=== PATIENT | male | born 1960 | race Caucasian/White ===

== ENCOUNTER 2020-10-09 12:51 | Inpatient (IN) ==
[2020-10-09] MEDS ORDERED: DEXAMETHASONE SOD INJ 10 MG/ML VIAL IV ONE ×2 (13:18→14:16)
[2020-10-09] MEDS ORDERED: ALBUTEROL HFA 8 GM INHALER INH ONE ×2 (13:18→13:22)
--- NOTE | 2020-10-09 13:35 | Emergency Department Note ---
Impression & Plan Pneumonia due to COVID-19 virus, Hypoxia, Acute kidney injury ED Provider Note CHIEF COMPLAINT: Cough, shortness of breath, low oxygen HISTORY OF PRESENTING ILLNESS: This is a 60-year-old male who presents to the emergency department by private vehicle with complaint of cough, shortness of b reath, and low oxygen. The patient states his symptoms started about 3 days ago that he had a cough and some shortness of breath with activities. He has been feeling very tired and rundown. He reports a dry mouth and also notes some diarrhea for the past few days as well. He reports that he was exposed to a family member who tested positive for COVID-19. He went to an outpatient testing site to get tested for Covid and they found that his oxygen levels were low and sent him to the ER for further evaluation. He denies any chest pain, back pain, or abdominal pain. He rates his pain level 0/10. He denies any fevers or chills, but has had some body aches. REVIEW OF SYSTEMS: A complete 10 point review of systems was reviewed with the patient with pertinent positives and negatives as per history of present illness. All else were negative. PAST MEDICAL HISTORY: Type 2 diabetes, hypertension SOCIAL HISTORY: Lives at home with his , he denies tobacco use ALLERGIES: No known allergies PHYSICAL EXAM: CONSTITUTIONAL: Alert, Pleasant and cooperative. Ill-appearing, but in no acute distress. Dehydrated. HEENT: Normocephalic, atraumatic. PERRL, EOMI. Pharynx normal. Dry mucous membranes. NECK: Supple, full active range of motion without discomfort. No cervical adenopathy. RESPIRATORY: Diminished throughout with bilateral rhonchi and crackles, no wheezing or stridor. Equal expansion bilaterally. No tachypnea or accessory muscle use. CARDIOVASCULAR: Regular rate and rhythm with no murmurs, rubs or gallops. Normal peripheral perfusion, 2+ distal pulses in all 4 extremities. No pitting edema. GASTROINTESTINAL: Soft, nontender, nondistended. No palpable masses or HSM. Bowel sounds present in all quadrants. MUSCULOSKELETAL: Full range of motion of all joints without discomfort. INTEGUMENTARY: No rash or other significant dermatologic conditions noted. NEUROLOGIC: Alert and oriented X 4 with normal affect. No focal neurologic deficits noted. Normal strength and sensation in all 4 extremities. Normal speech. Normal gait observed. ED COURSE AND MEDICAL DECISION MAKING: CC: Patient presenting with complaint of cough, shortness of breath, low oxygen DIFFERENTIAL DIAGNOSIS: Includes, but not limited to COVID-19, influenza, other viral URI, bronchitis, pneumonia, bacteremia/sepsis, pulmonary embolism, acute coronary syndrome, among others. INTERPRETATION OF LABS: No leukocytosis, mild anemia (consistent with baseline), normal platelets, hyperglycemia, no other significant electrolyte abnormalities, significantly elevated BUN and creatinine consistent with CYDNEY, normal liver enzymes. Troponin undetectable. Lactic acid elevated at 2.9, procalcitonin also elevated. VBG PCO2 and PO2 within normal limits. Influenza A/B is negative. SARS-CoV-2 RNA is positive. IMAGING: XR chest 1V portable CLINICAL HISTORY: Dyspnea COMPARISON STUDY: Chest x-ray dated 03/17/2018 FINDINGS: The heart is normal in size. There are moderately extensive bilateral pulmonary airspace opacities consistent with a multifocal pneumonia. Correlation with Covid 19 testing is recommended. There are no pleural effusions. IMPRESSION: 1. Moderately extensive bilateral pulmonary airspace opacities consistent with a multifocal pneumonia. EKG: Shows sinus rhythm with a rate of 70 bpm, occasional PVCs, no ST depression or elevation, PVCs appear to be new when compared to previous EKG from 03/17/2018, otherwise no significant changes by my interpretation. MEDICATION RECONCILIATION: I attest that I have personally reviewed the patient's current medication list. INITIAL VITAL SIGNS REVIEW: I reviewed the patient's initial vital signs and interpret them as follows: T: Afebrile; BP: Hypertensive; HR: Within normal limits; RR: Within normal limits; Pulse Ox: Hypoxic on room air at 76%. MDM SUMMARY: Patient was evaluated at bedside in room B8 under full contact and airborne precautions, history and physical exam performed. The patient is alert and oriented, ill-appearing, but in no acute distress, resting calmly in the stretcher. Patient was initially hypoxic at 76% on room air on arrival, he was initially placed on 5 L nasal cannula, and is still hypoxic with sats ranging 88 to 90%. The patient is complaining of a dry mouth and has not been breathing much through his nose, I did switch him to an oxygen mask, and he had almost immediate improvement of his sats to 95%. No labored breathing or evidence of respiratory distress. Lungs are bronchitic with crackles bilaterally concerning for pneumonia. Cardiac monitoring: An order was placed for continuous cardiac monitoring. The monitor shows a rate of 72 bpm with normal sinus rhythm. EKG was reviewed at bedside as well and notes normal sinus rhythm without acute ischemic changes. Orders were placed at bedside for labs, blood cultures x2, lactate, procalcitonin, VBG, troponin, influenza and COVID-19 testing, urinalysis, chest x-ray to evaluate for shortness of breath and hypoxia. Orders were also placed for albuterol inhaler with spacer and IV dexamethasone. I have a high suspicion for COVID-19 infection, will hold off on antibiotics for now, the patient does not appear to be septic. Patient discussed with Dr. Fiore, who agrees with my assessment, plan, and disposition. Labs and imaging reviewed as above, notable findings of elevated lactate and procalcitonin, acute kidney injury, and positive COVID-19 testing. Chest x-ray reviewed noting moderate extensive bilateral pulmonary airspace opacities consistent with multifocal pneumonia, which I suspect is due to COVID- 19 infection. Patient reassessed multiple times throughout ED stay, he has remained hemodynamically stable and has not had further hypoxia while on the face mask oxygen. Breathing remains nonlabored and no tachypnea. I spoke on the phone with the hospitalist team, they agreed to evaluate the patient for admission. Will defer antibiotics and CT imaging to the inpatient team. The patient was updated on all results and plan for admission, he verbalized understanding and was agreeable to this plan. The patient was stable at time of admission. CRITICAL CARE NOTE: I have personally spent greater than 32 minutes of critical care time in the direct management of this patient. This includes bedside care, interpretation of diagnostic studies, and testing, discussion with consultants, patient, and family members, and other required patient management activities. This 32 minutes is in excess of all separately billable procedures. The chart was completed utilizing [employer] Speech voice recognition software. Grammatical errors, random word insertions, pronoun errors, and incomplete sentences are an occasional consequence of this system due to software limitations, ambient noise, and hardware issues. Any formal questions or concerns about the content, text, or information contained within the body of this dictation should be directly addressed to the nurse practitioner for clarification. Past Med/Surg History Medical History Diabetes mellitus type II, controlled Dyslipidemia Gout HTN (hypertension) Morbid obesity TAD on CPAP Psoriatic arthropathy Surgical History H/O meniscectomy of right knee "1994 Dr. Bernard" H/O wisdom tooth extraction Hx of total knee arthroplasty "R TKA Dr. 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 Beliefs That Will Affect Care: None marital status: Current Living Situation: Spouse current occupational status: employed Other Information That Helps Us Care for You: No Feels Safe at Home: Yes Safety Concerns: Feels Safe At This Time Assistive Devices: BiPap, Cane and Glasses Allergies Allergies Allergy/AdvReac Type Severity Reaction Status Date / Time No Known Allergies Allergy Verified 10/09/20 15:01 Home Meds Home Medications Medication Instructions Recorded Confirmed allopurinol 300 mg PO QAM #0 tab 05/18/16 10/09/20 cinnamon bark [Cinnamon] 500 mg PO QAM #0 05/18/16 10/09/20 cyanocobalamin (vitamin B-12) 1,000 mcg PO QAM #0 tab 05/18/16 10/09/20 [Vitamin B-12] glucosamine sulfate [Glucosamine] 500 mg PO QAM #0 tab 05/18/16 10/09/20 metformin 1,000 mg PO BID #0 tab 05/18/16 10/09/20 omega-3 fatty acids [Fish Oil 1,000 mg PO QAM #0 cap 05/18/16 10/09/20 Concentrate] grape seed extract [Grape Seed] 50 mg PO QAM #0 07/08/16 10/09/20 zinc 50 mg PO QAM #0 07/08/16 10/09/20 calcium carbonate [Calcium 600] 600 mg PO QAM #0 03/17/18 10/09/20 cholecalciferol (vitamin D3) 25 mcg PO QAM 90 Days #90 tab 03/17/18 10/09/20 [Vitamin D3] garlic 2,000 mg PO QAM #0 03/17/18 10/09/20 ketoconazole 1 ea TOPICAL DIRECTED 30 Days 03/17/18 10/09/20 #120 ml acetaminophen [Tylenol Extra 500 mg PO Q8H PRN 10/09/20 10/09/20 Strength] aspirin 81 mg PO QAM 10/09/20 10/09/20 atenolol-chlorthalidone 1 tab PO QAM 10/09/20 10/09/20 atorvastatin 40 mg PO PM 10/09/20 10/09/20 flurbiprofen 100 mg PO QAM 10/09/20 10/09/20 glimepiride 4 mg PO QAM 10/09/20 10/09/20 losartan 100 mg PO QAM 10/09/20 10/09/20 magnesium oxide 400 mg PO QAM 10/09/20 10/09/20 Results & Data (ED) Vital Signs Vital Signs - 24 hr 10/09/20 12:52 10/09/20 13:03 10/09/20 13:15 Temperature 37.1 C Temperature Source Oral Pulse Rate 75 75 67 Pulse Rate from SpO2 Sensor 72 67 Pulse Rhythm Respiratory Rate 22 21 22 Blood Pressure 158/70 H 153/70 H 152/57 H Blood Pressure Mean 99 94 84 Pulse Oximetry 76 L 88 L 91 Oxygen Delivery Method Room Air Oxygen Flow Rate Sepsis Recent Fever Within 48 Hours No Sepsis New/Unexplained Change in Mental Status No Sepsis Action Taken by Nursing No Action Required Oxygen Flow Rate - Titration Pulse Oximetry Post Tiitration 10/09/20 13:19 10/09/20 13:45 10/09/20 14:00 Temperature Temperature Source Pulse Rate 75 69 62 Pulse Rate from SpO2 Sensor 66 62 Pulse Rhythm Regular Respiratory Rate 22 23 24 Blood Pressure 140/71 135/69 Blood Pressure Mean 111 109 Pulse Oximetry 95 93 94 Oxygen Delivery Method Oxymask Oxygen Flow Rate 5 Sepsis Recent Fever Within 48 Hours Sepsis New/Unexplained Change in Mental Status Sepsis Action Taken by Nursing Oxygen Flow Rate - Titration 5 Pulse Oximetry Post Tiitration 95 10/09/20 14:15 10/09/20 14:30 10/09/20 14:45 Temperature Temperature Source Pulse Rate 65 66 65 Pulse Rate from SpO2 Sensor 65 65 65 Pulse Rhythm Respiratory Rate 26 H 31 H 34 H Blood Pressure 139/71 116/58 L 135/62 Blood Pressure Mean 106 73 83 Pulse Oximetry 92 90 90 Oxygen Delivery Method Oxygen Flow Rate Sepsis Recent Fever Within 48 Hours Sepsis New/Unexplained Change in Mental Status Sepsis Action Taken by Nursing Oxygen Flow Rate - Titration Pulse Oximetry Post Tiitration 10/09/20 15:00 10/09/20 15:15 10/09/20 15:30 Temperature Temperature Source Pulse Rate 68 67 65 Pulse Rate from SpO2 Sensor 68 67 64 Pulse Rhythm Respiratory Rate 27 H 24 31 H Blood Pressure 135/58 L 138/61 138/62 Blood Pressure Mean 79 93 96 Pulse Oximetry 90 92 93 Oxygen Delivery Method Oxygen Flow Rate Sepsis Recent Fever Within 48 Hours Sepsis New/Unexplained Change in Mental Status Sepsis Action Taken by Nursing Oxygen Flow Rate - Titration Pulse Oximetry Post Tiitration 10/09/20 15:45 10/09/20 16:00 10/09/20 16:15 Temperature Temperature Source Pulse Rate 61 65 69 Pulse Rate from SpO2 Sensor 62 65 68 Pulse Rhythm Respiratory Rate 25 H 31 H 25 H Blood Pressure 135/57 L 138/60 147/68 H Blood Pressure Mean 83 79 95 Pulse Oximetry 93 93 96 Oxygen Delivery Method Oxygen Flow Rate Sepsis Recent Fever Within 48 Hours Sepsis New/Unexplained Change in Mental Status Sepsis Action Taken by Nursing Oxygen Flow Rate - Titration Pulse Oximetry Post Tiitration 10/09/20 16:45 Temperature Temperature Source Pulse Rate 65 Pulse Rate from SpO2 Sensor 65 Pulse Rhythm Respiratory Rate 25 H Blood Pressure 160/67 H Blood Pressure Mean 110 Pulse Oximetry 90 Oxygen Delivery Method Oxygen Flow Rate Sepsis Recent Fever Within 48 Hours Sepsis New/Unexplained Change in Mental Status Sepsis Action Taken by Nursing Oxygen Flow Rate - Titration Pulse Oximetry Post Tiitration Laboratory Data Result diagrams: 10/09/20 13:50 10/09/20 21:10 Lab Results 10/09/20 10/09/20 10/09/20 Range/Units 13:38 13:38 13:38 WBC (4.8-10.8) K/uL RBC (4.7-6.1) M/uL Hgb (14.0-18.0) g/dL Hct (42-52) % MCV (80-100) fL MCH (25-34) pg MCHC (32-36) g/dL RDW Std Deviation (36.4-46.3) fL RDW Coeff of Amarjit (11.5-14.5) % Plt Count (130-400) K/uL MPV (7.4-10.4) fL Immature Gran % (Auto) % Neut % (Auto) % Lymph % (Auto) % Fergus % (Auto) % Eos % (Auto) % Baso % (Auto) % Neut # (Auto) (1.4-6.5) K/uL Lymph # (Auto) (1.2-3.4) K/uL Fergus # (Auto) (0.11-0.59) K/uL Eos # (Auto) (0-0.5) K/uL Baso # (Auto) (0-0.2) K/uL Immature Gran # (Auto) (0.00-0.02) K/uL PT INR APTT PTT Ratio D-Dimer VBG pH (7.36-7.41) VBG pCO2 (38-50) mmHg VBG pO2 mmHg VBG HCO3 mmol/L VBG O2 Saturation % VBG Base Excess mEq/L Barometric Pressure mm/Hg Sodium (136-145) mmol/L Potassium (3.5-5.1) mmol/L Chloride (98-107) mmol/L Carbon Dioxide (21-32) mmol/L Anion Gap (3-11) BUN (7-18) mg/dl Creatinine (0.6-1.4) mg/dl Est Cr Clr Drug Dosing ml/min Est GFR ( Amer) Est GFR (Non-Af Amer) BUN/Creatinine Ratio (10-20) Glucose (70-99) mg/dl Lactate (0.4-2.0) mmol/L Calcium (8.5-10.1) mg/dl Magnesium (1.8-2.4) mg/dl Total Bilirubin (0.2-1) mg/dl AST (15-37) U/L ALT (12-78) U/L Alkaline Phosphatase (45-117) U/L Troponin I (0-0.045) ng/ml Total Protein (6.4-8.2) gm/dl Albumin (3.4-5.0) gm/dl Globulin (2.5-4.0) gm/dl Albumin/Globulin Ratio (0.9-2) Beta-Hydroxybutyric Acd (0.2-2.81) mg/dl Procalcitonin (0-0.5) ng/ml COVID-19 Eval [facility] Influ A Molecular Assay Negative (Negative) Influ B Molecular Assay Negative (Negative) SARS-CoV-2, RNA, NAAT POSITIVE A* (NEGATIVE) 10/09/20 10/09/20 10/09/20 Range/Units 13:50 13:50 13:50 WBC (4.8-10.8) K/uL RBC (4.7-6.1) M/uL Hgb (14.0-18.0) g/dL Hct (42-52) % MCV (80-100) fL MCH (25-34) pg MCHC (32-36) g/dL RDW Std Deviation (36.4-46.3) fL RDW Coeff of Amarjit (11.5-14.5) % Plt Count (130-400) K/uL MPV (7.4-10.4) fL Immature Gran % (Auto) % Neut % (Auto) % Lymph % (Auto) % Fergus % (Auto) % Eos % (Auto) % Baso % (Auto) % Neut # (Auto) (1.4-6.5) K/uL Lymph # (Auto) (1.2-3.4) K/uL Fergus # (Auto) (0.11-0.59) K/uL Eos # (Auto) (0-0.5) K/uL Baso # (Auto) (0-0.2) K/uL Immature Gran # (Auto) (0.00-0.02) K/uL PT Cancelled INR Cancelled APTT Cancelled PTT Ratio Cancelled D-Dimer Cancelled VBG pH (7.36-7.41) VBG pCO2 (38-50) mmHg VBG pO2 mmHg VBG HCO3 mmol/L VBG O2 Saturation % VBG Base Excess mEq/L Barometric Pressure mm/Hg Sodium 139 (136-145) mmol/L Potassium 3.3 L (3.5-5.1) mmol/L Chloride 101 (98-107) mmol/L Carbon Dioxide 25 (21-32) mmol/L Anion Gap 12.0 H (3-11) BUN 50 H (7-18) mg/dl Creatinine 2.23 H (0.6-1.4) mg/dl Est Cr Clr Drug Dosing 49.5 ml/min Est GFR ( Amer) 35.5 Est GFR (Non-Af Amer) 30.7 BUN/Creatinine Ratio 22.3 H (10-20) Glucose 375 H* (70-99) mg/dl Lactate (0.4-2.0) mmol/L Calcium 9.3 (8.5-10.1) mg/dl Magnesium 1.9 (1.8-2.4) mg/dl Total Bilirubin 0.7 (0.2-1) mg/dl AST 52 H (15-37) U/L ALT 47 (12-78) U/L Alkaline Phosphatase 66 (45-117) U/L Troponin I < 0.015 (0-0.045) ng/ml Total Protein 7.9 (6.4-8.2) gm/dl Albumin 2.4 L (3.4-5.0) gm/dl Globulin 5.5 H (2.5-4.0) gm/dl Albumin/Globulin Ratio 0.4 L (0.9-2) Beta-Hydroxybutyric Acd (0.2-2.81) mg/dl Procalcitonin 1.62 H (0-0.5) ng/ml COVID-19 Eval Order Influ A Molecular Assay (Negative) Influ B Molecular Assay (Negative) SARS-CoV-2, RNA, NAAT (NEGATIVE) 10/09/20 10/09/20 10/09/20 Range/Units 13:50 13:50 13:50 WBC 7.53 (4.8-10.8) K/uL RBC 4.14 L (4.7-6.1) M/uL Hgb 11.8 L (14.0-18.0) g/dL Hct 35.1 L (42-52) % MCV 84.8 (80-100) fL MCH 28.5 (25-34) pg MCHC 33.6 (32-36) g/dL RDW Std Deviation 48.9 H (36.4-46.3) fL RDW Coeff of Amarjit 15.8 H (11.5-14.5) % Plt Count 223 (130-400) K/uL MPV 11.5 H (7.4-10.4) fL Immature Gran % (Auto) 0.4 % Neut % (Auto) 91.0 % Lymph % (Auto) 6.0 % Fergus % (Auto) 2.4 % Eos % (Auto) 0.1 % Baso % (Auto) 0.1 % Neut # (Auto) 6.85 H (1.4-6.5) K/uL Lymph # (Auto) 0.45 L (1.2-3.4) K/uL Fergus # (Auto) 0.18 (0.11-0.59) K/uL Eos # (Auto) 0.01 (0-0.5) K/uL Baso # (Auto) 0.01 (0-0.2) K/uL Immature Gran # (Auto) 0.03 H (0.00-0.02) K/uL PT INR APTT PTT Ratio D-Dimer VBG pH 7.44 H (7.36-7.41) VBG pCO2 40 (38-50) mmHg VBG pO2 56 mmHg VBG HCO3 26 mmol/L VBG O2 Saturation 80.1 % VBG Base Excess 2.1 mEq/L Barometric Pressure 736.3 mm/Hg Sodium (136-145) mmol/L Potassium (3.5-5.1) mmol/L Chloride (98-107) mmol/L Carbon Dioxide (21-32) mmol/L Anion Gap (3-11) BUN (7-18) mg/dl Creatinine (0.6-1.4) mg/dl Est Cr Clr Drug Dosing ml/min Est GFR ( Amer) Est GFR (Non-Af Amer) BUN/Creatinine Ratio (10-20) Glucose (70-99) mg/dl Lactate 2.9 H* (0.4-2.0) mmol/L Calcium (8.5-10.1) mg/dl Magnesium (1.8-2.4) mg/dl Total Bilirubin (0.2-1) mg/dl AST (15-37) U/L ALT (12-78) U/L Alkaline Phosphatase (45-117) U/L Troponin I (0-0.045) ng/ml Total Protein (6.4-8.2) gm/dl Albumin (3.4-5.0) gm/dl Globulin (2.5-4.0) gm/dl Albumin/Globulin Ratio (0.9-2) Beta-Hydroxybutyric Acd (0.2-2.81) mg/dl Procalcitonin (0-0.5) ng/ml COVID-19 Eval Order Influ A Molecular Assay (Negative) Influ B Molecular Assay (Negative) SARS-CoV-2, RNA, NAAT (NEGATIVE) 10/09/20 10/09/20 Range/Units 16:25 16:25 WBC (4.8-10.8) K/uL RBC (4.7-6.1) M/uL Hgb (14.0-18.0) g/dL Hct (42-52) % MCV (80-100) fL MCH (25-34) pg MCHC (32-36) g/dL RDW Std Deviation (36.4-46.3) fL RDW Coeff of Amarjit (11.5-14.5) % Plt Count (130-400) K/uL MPV (7.4-10.4) fL Immature Gran % (Auto) % Neut % (Auto) % Lymph % (Auto) % Fergus % (Auto) % Eos % (Auto) % Baso % (Auto) % Neut # (Auto) (1.4-6.5) K/uL Lymph # (Auto) (1.2-3.4) K/uL Fergus # (Auto) (0.11-0.59) K/uL Eos # (Auto) (0-0.5) K/uL Baso # (Auto) (0-0.2) K/uL Immature Gran # (Auto) (0.00-0.02) K/uL PT 12.4 H INR 1.2 H APTT 40.5 H PTT Ratio 1.5 D-Dimer 1210 H* VBG pH (7.36-7.41) VBG pCO2 (38-50) mmHg VBG pO2 mmHg VBG HCO3 mmol/L VBG O2 Saturation % VBG Base Excess mEq/L Barometric Pressure mm/Hg Sodium (136-145) mmol/L Potassium (3.5-5.1) mmol/L Chloride (98-107) mmol/L Carbon Dioxide (21-32) mmol/L Anion Gap (3-11) BUN (7-18) mg/dl Creatinine (0.6-1.4) mg/dl Est Cr Clr Drug Dosing ml/min Est GFR ( Amer) Est GFR (Non-Af Amer) BUN/Creatinine Ratio (10-20) Glucose (70-99) mg/dl Lactate 2.2 H* (0.4-2.0) mmol/L Calcium (8.5-10.1) mg/dl Magnesium (1.8-2.4) mg/dl Total Bilirubin (0.2-1) mg/dl AST (15-37) U/L ALT (12-78) U/L Alkaline Phosphatase (45-117) U/L Troponin I (0-0.045) ng/ml Total Protein (6.4-8.2) gm/dl Albumin (3.4-5.0) gm/dl Globulin (2.5-4.0) gm/dl Albumin/Globulin Ratio (0.9-2) Beta-Hydroxybutyric Acd (0.2-2.81) mg/dl Procalcitonin (0-0.5) ng/ml COVID-19 Eval Order Influ A Molecular Assay (Negative) Influ B Molecular Assay (Negative) SARS-CoV-2, RNA, NAAT (NEGATIVE) Administered Medications Enoxaparin Sodium (Enoxaparin 80 Mg/0.8 Ml Syr) 70 mg SQ BID@0800,2000 [facility] Stop: 11/08/20 21:59 Last Admin: 10/09/20 21:51 Dose: 70 mg Documented by: [id number] Sodium Chloride (Nss 1000ml) 1,000 mls @ 125 mls/hr IV .Q8H [facility] Stop: 11/08/20 16:14 Last Admin: 10/09/20 21:50 Dose: 125 mls/hr Documented by: [id number] Ceftriaxone Sodium 2,000 mg/ (Dextrose) 70 mls @ 100 mls/hr IV Q24H [facility]; Protocol Stop: 10/16/20 20:59 Last Infusion: 10/09/20 22:41 Dose: 0 mls/hr Documented by: [id number] Admin: 10/09/20 21:50 Dose: 100 mls/hr Documented by: [id number] Insulin Aspart (Insulin Aspart 100 Units/Ml 3 Ml Pen) 0 units SC ACHS [facility] Stop: 11/08/20 20:59 Last Admin: 10/09/20 22:25 Dose: 25 units Documented by: [id number] Cosigned by: [id number] Discontinued Medications Albuterol (Albuterol Hfa 8 Gm Inhaler) Confirm Administered Dose 60 puffs INH .STK-MED ONE Stop: 10/09/20 13:23 Last Admin: 10/09/20 13:41 Dose: Not Given Documented by: [id number] Albuterol (Albuterol Hfa 8 Gm Inhaler) 10 puffs INH NOW ONE Stop: 10/09/20 13:19 Last Admin: 10/09/20 13:41 Dose: 10 puffs Documented by: [id number] Dexamethasone (Dexamethasone Sod Inj 10 Mg/Ml Vial) 6 mg IV NOW ONE Stop: 10/09/20 14:17 Last Admin: 10/09/20 14:17 Dose: 6 mg Documented by: [id number] Sodium Chloride (Nss 1000ml) 1,000 mls @ 999 mls/hr IV .Q1H1M ONE Stop: 10/09/20 15:17 Last Infusion: 10/09/20 21:15 Dose: 0 mls/hr Documented by: [id number] Admin: 10/09/20 14:18 Dose: 999 mls/hr Documented by: [id number] Insulin Human Regular 10 units (/ Syringe) 10 mls @ 5 mls/min IV ONE ONE Stop: 10/09/20 22:01 Last Admin: 10/09/20 22:28 Dose: 5 mls/min Documented by: [id number] Cosigned by: [id number] Insulin Glargine (Insulin Glargine Solostar 100 Units/Ml 3 Ml Pen) 50 units SC NOW ONE Stop: 10/09/20 21:01 Last Admin: 10/09/20 22:25 Dose: 50 units Documented by: [id number] Cosigned by: [id number] Potassium Chloride (Potassium Chloride Crtab 20 Meq Tabcr) 40 meq PO NOW STA Stop: 10/09/20 20:58 Last Admin: 10/09/20 22:02 Dose: 40 meq Documented by: [id number] Discharge Plan Visit Data Chief Complaint: Illness Stated Complaint: LOW OXYGEN LEVELS ED Provider: Walter Fiore ED Midlevel Provider: Cassidy Trujillo Discharge Problem: Pneumonia due to COVID-19 virus, Hypoxia, Acute kidney injury Patient Disposition: Admitted As Inpatient Discharge Instructions Interventions: ED Discharge Assessment Last Done: 10/09/20 19:22
[2020-10-09] MEDS ORDERED: SODIUM CHLORIDE 0.9% 1000ML 1,000 ML IV ONE ×2 (13:52→14:17)
--- NOTE | 2020-10-09 14:02 | XRay Report ---
XR chest 1V portable CLINICAL HISTORY: Dyspnea COMPARISON STUDY: Chest x-ray dated 03/17/2018 FINDINGS: The heart is normal in size. There are moderately extensive bilateral pulmonary airspace op acities consistent with a multifocal pneumonia. Correlation with Covid 19 testing is recommended. The re are no pleural effusions.[ IMPRESSION: 1. Moderately extensive bilateral pulmonary airspace opacities consistent with a multifocal pneumonia . ACT 112: Negative or not required by law. Electronically signed by: Ferdinand Sigala M.D. 10/09/2020 2:00 PM
[2020-10-09 14:03] LABS: Base Excess VBG 2.1 mEq/L; Oxygen Saturation VBG 80.1 %; pH VBG 7.44 (7.36-7.41)
[2020-10-09 14:04] LABS: Basophils # (auto) 0.01 K/uL (0-0.2); Basophils % (auto) 0.1 %; Eosinophils # (auto) 0.01 K/uL (0-0.5); Eosinophils % (auto) 0.1 %; Hematocrit (blood only) 35.1 % (42-52); Hemoglobin 11.8 g/dL (14.0-18.0); Immature Granulocytes # (auto) 0.03 K/uL (0.00-0.02); Immature Granulocytes % (auto) 0.4 %; Lymphocytes # (auto) 0.45 K/uL (1.2-3.4); Mean Corpuscular Hemoglobin 28.5 pg (25-34); Mean Corpuscular Hgb Conc 33.6 g/dL (32-36); Mean Corpuscular Volume 84.8 fL (80-100); Mean Platelet Volume 11.5 fL (7.4-10.4); Monocytes # (auto) 0.18 K/uL (0.11-0.59); Monocytes % (auto) 2.4 %; Neutrophils # (auto) 6.85 K/uL (1.4-6.5); Platelet Count 223 K/uL (130-400); RDW Coefficient of Variation 15.8 % (11.5-14.5); RDW Standard Deviation 48.9 fL (36.4-46.3); Red Blood Count 4.14 M/uL (4.7-6.1); White Blood Count 7.53 K/uL (4.8-10.8)
[2020-10-09 14:43] LABS: Influenza A virus by PCR Negative (Negative); Influenza B virus by PCR Negative (Negative)
[2020-10-09 14:54] LABS: Alanine Aminotransferase 47 U/L (12-78); Albumin Globulin Ratio 0.4 (0.9-2); Albumin Level 2.4 gm/dl (3.4-5.0); Alkaline Phosphatase 66 U/L (45-117); Aspartate Aminotransferase 52 U/L (15-37); BUN Creatinine Ratio 22.3 (10-20); Bilirubin,Total 0.7 mg/dl (0.2-1); Blood Urea Nitrogen 50 mg/dl (7-18); Calcium 9.3 mg/dl (8.5-10.1); Carbon Dioxide 25 mmol/L (21-32); Chloride 101 mmol/L (98-107); Creatinine Clr Calc Pharmacy 49.5 ml/min; Est GFR (African American) 35.5; Est GFR (Non-African American) 30.7; Globulin 5.5 gm/dl (2.5-4.0); Glucose 375 mg/dl (70-99); Magnesium 1.9 mg/dl (1.8-2.4); Potassium 3.3 mmol/L (3.5-5.1); Sodium 139 mmol/L (136-145); Total Protein 7.9 gm/dl (6.4-8.2); Troponin I < 0.015 ng/ml (0-0.045)
[2020-10-09 16:45] LABS: INR 1.2 (0.9-1.1); Partial Thromboplastin Ratio 1.5; Partial Thromboplastin Time 40.5 Seconds (21.0-31.0); Prothrombin Time 12.4 Seconds (9.0-12.0)
[2020-10-09 16:46] LABS: D Dimer 1210 ug/L FEU (0-500)
--- NOTE | 2020-10-09 17:13 | Electrocardiogram Report ---
Test Reason : Blood Pressure : / mmHG Vent. Rate : 070 BPM Atrial Rate : 070 BPM P-R Int : 152 ms QRS Dur : 106 ms QT Int : 428 ms P-R-T Axes : 033 -10 006 degrees QTc Int : 462 ms Sinus rhythm with PACs, some conducted aberrantly Minimal voltage criteria for LVH, may be normal variant Borderline ECG Confirmed by Ran Anderson ([id number]) on 10/09/2020 5:13:07 PM Referred By: REFERRED SELF Confirmed By:Jean Pierre Anderson
--- NOTE | 2020-10-09 17:44 | Ultrasound Report ---
ULTRASOUND BILATERAL LOWER EXTREMITY VENOUS CLINICAL HISTORY: Dyspnea. Hypoxia. COMPARISON STUDY: No priors. TECHNIQUE: Real-time, grayscale, and color Doppler sonography of the deep veins of the right and left lower extremity was performed from the inguinal crease to the calf. Compression and augmentation wer e utilized. FINDINGS: There is no sonographic evidence of deep venous thrombosis identified in the right or left lower extremity. The common femoral, superficial femoral, and popliteal veins are patent and normally compressible bilaterally. The greater saphenous vein and the profunda femoris vein at the junction w ith the common femoral vein are clear in both legs. The visualized calf veins are patent bilaterally. IMPRESSION: There is no sonographic evidence of deep venous thrombosis identified in the right or lef t lower extremity. ACT 112: Negative or not required by law. Electronically signed by: Nj Perez M.D. 10/09/2020 5:42 PM
--- NOTE | 2020-10-09 19:56 | History & Physical Report ---
Date of Service October 09, 2020 Assessment & Plan (1) Pneumonia due to COVID-19 virus: Known exposure of the weekend. Noted to be hypoxic when presented for outpatient testing today so referred to ED. - Continue oxygen therapy titrated to effect - Procalcitonin elevated so will add antibiotic coverage with Rocephin and doxycycline - Dexamethasone started in the ED - will continue 6 mg IV daily for up to 10 days - Lovenox for DVT prophylaxis - checking D-dimer and LE duplex to rule out potential DVT/PE. Unable to get CT chest at present due to CYDNEY. - Not currently a candidate for remdesevir due to CYDNEY - will continue to monitor - May consider convalescent plasma pending clinical response to current therapies - Lactate elevated in ED at 2.9. Repeat after 1 L of IVF was 2.2. Continue IVF and repeat later this evening. (2) Hypoxia: Oxygen therapy as discussed above (3) Acute kidney injury: Suspect in part related to dehydration from lack of oral intake - received 1 L IVF bolus in ED. Receiving second liter at 125 ml/hr. - Recheck BMP this evening - Holding losartan and chlorthalidone (4) Diabetes mellitus type II, controlled: Pharmacy consult for glycemic management in view of insulin requirements and addition of steroids - Diabetic diet - Accuchecks - Holding home Metformin (5) HTN (hypertension): BP elevated in the ED - Continue home atenolol with holds. Holding other BP meds due to CYDNEY - Add prn hydralazine for SBP > 180 (6) TAD on CPAP: Continue CPAP QHS per protocol. (7) Dyslipidemia: Holding statin for now - will resume once pt more stable. Pt seen and reviewed with collaborating physician, Dr. Sheridan. Plan of care discussed and as outlined above. Trevon Jeffery PA-C History of Present Illness Chief Complaint: cough, shortness of breath Primary Care Provider: Soren Nicholson MD This is 60 y/o male with a history of insulin-requiring diabetes, obesity, severe TAD on CPAP, HTN, dyslipidemia, and psoriatic arthropathy who presented to the ED today with cough and shortness of breath after he was found to be hypoxic at a COVID testing site. Pt reports that he was around a family member with COVID this past weekend. By Wednesday evening (three nights ago), he had developed a cough and loss of appetite. Cough was mostly non-productive but he is now bringing up sputum at times. Over the past three days he has developed a loss of taste and progressive shortness of breath, fatigue and myalgias. 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 He has noted a dry mouth. Denies chest pain, palpitations, N/V, HOBBS or dizziness. Shortness of breath is worse with exertion or talking for extended periods. He has been using Aleve for the aches and pains with only partial relief. Denies fevers or chills. His also tested positive for COVID in the ED today but was discharged home. Allergies Allergy/AdvReac Type Severity Reaction Status Date / Time No Known Allergies Allergy Verified 10/09/20 15:01 Home Medications Medication Instructions Recorded Confirmed Type allopurinol 300 mg PO QAM #0 tab 05/18/16 10/09/20 History cinnamon bark [Cinnamon] 500 mg PO QAM #0 05/18/16 10/09/20 History cyanocobalamin (vitamin B-12) 1,000 mcg PO QAM #0 tab 05/18/16 10/09/20 History [Vitamin B-12] glucosamine sulfate [Glucosamine] 500 mg PO QAM #0 tab 05/18/16 10/09/20 History metformin 1,000 mg PO BID #0 tab 05/18/16 10/09/20 History omega-3 fatty acids [Fish Oil 1,000 mg PO QAM #0 cap 05/18/16 10/09/20 History Concentrate] grape seed extract [Grape Seed] 50 mg PO QAM #0 07/08/16 10/09/20 History zinc 50 mg PO QAM #0 07/08/16 10/09/20 History calcium carbonate [Calcium 600] 600 mg PO QAM #0 03/17/18 10/09/20 History cholecalciferol (vitamin D3) 25 mcg PO QAM 90 Days #90 tab 03/17/18 10/09/20 History [Vitamin D3] garlic 2,000 mg PO QAM #0 03/17/18 10/09/20 History ketoconazole 1 ea TOPICAL DIRECTED 30 Days 03/17/18 10/09/20 History #120 ml acetaminophen [Tylenol Extra 500 mg PO Q8H PRN 10/09/20 10/09/20 History Strength] aspirin 81 mg PO QAM 10/09/20 10/09/20 History atenolol-chlorthalidone 1 tab PO QAM 10/09/20 10/09/20 History atorvastatin 40 mg PO PM 10/09/20 10/09/20 History flurbiprofen 100 mg PO QAM 10/09/20 10/09/20 History glimepiride 4 mg PO QAM 10/09/20 10/09/20 History losartan 100 mg PO QAM 10/09/20 10/09/20 History magnesium oxide 400 mg PO QAM 10/09/20 10/09/20 History Past Med/Surg History Medical History Diabetes mellitus type II, controlled Dyslipidemia Gout HTN (hypertension) Morbid obesity TAD on CPAP Psoriatic arthropathy Surgical History H/O meniscectomy of right knee "1994 Dr. Bernard" H/O wisdom tooth extraction Hx of total knee arthroplasty "R [facility] Dr. Sesay 10/29/16" Social History (Updated 10/09/20 @ 19:46 by Loli Jeffery PA-C) Smoking Status: Never smoker Hx Alcohol Use: No Hx Substance Use: No marital status: Current Living Situation: Spouse current occupational status: employed Feels Safe at Home: Yes Review of Systems Review of Systems: All systems reviewed & are unremarkable except as noted in HPI & below Constitutional: + body aches, + fatigue and + anorexia; no fever Eyes: no diplopia Ear, Nose, Mouth, Throat: Loss of taste but sense of smell preserved Respiratory: + cough, + dyspnea, + dyspnea on exertion and + sputum production Cardiovascular: no chest pain, no palpitations, no lightheadedness and no edema Gastrointestinal: no abdominal pain, no nausea and no vomiting Genitourinary: no dysuria Musculoskeletal: + myalgia; no back pain, no neck pain and no muscle weakness Integumentary: no rash Neurologic: + generalized weakness; no localized weakness, no seizure-like activity, no dizziness and no headache(s) Physical Exam Constitutional: + ill appearing and + obese; no acute distress Neck: trachea midline Respiratory: + labored breathing (mildly) and + tachypneic Auscultation: + diminished lung sounds and + rhonchi (bibasilar) Cardiovascular: Rate/Rhythm: regular rate and regular rhythm Gastrointestinal (Abdomen): Inspection/Auscultation: normal bowel sounds; abdomen not distended Percussion/Palpation: abdomen soft; abdomen nontender Musculoskeletal: Head/Neck/Chest: normocephalic, head atraumatic and neck supple Skin: no rashes, warm and dry Neurologic: no focal motor deficits Psychiatric: A+Ox3, euthymic affect Results & Data Results & Data ([facility]) Vital Signs (Past 12 Hours) Vital Signs Temp Pulse Resp BP Pulse Ox 10/09/20 17:46 61 32 H 140/49 L 93 10/09/20 17:30 63 33 H 159/77 H 95 10/09/20 17:15 68 32 H 146/63 H 92 10/09/20 17:00 64 33 H 148/62 H 93 10/09/20 16:45 65 25 H 160/67 H 90 10/09/20 16:15 69 25 H 147/68 H 96 10/09/20 16:00 65 31 H 138/60 93 10/09/20 15:45 61 25 H 135/57 L 93 10/09/20 15:30 65 31 H 138/62 93 10/09/20 15:15 67 24 138/61 92 10/09/20 15:00 68 27 H 135/58 L 90 10/09/20 14:45 65 34 H 135/62 90 10/09/20 14:30 66 31 H 116/58 L 90 10/09/20 14:15 65 26 H 139/71 92 10/09/20 14:00 62 24 135/69 94 10/09/20 13:45 69 23 140/71 93 10/09/20 13:19 75 22 95 10/09/20 13:15 67 22 152/57 H 91 10/09/20 13:03 75 21 153/70 H 88 L 10/09/20 12:52 37.1 C 75 22 158/70 H 76 L Laboratory Results Laboratory Results - last 24 hr 10/09/20 10/09/20 10/09/20 13:38 13:38 13:38 WBC RBC Hgb Hct MCV MCH MCHC RDW Std Deviation RDW Coeff of Amarjit Plt Count MPV Immature Gran % (Auto) Neut % (Auto) Lymph % (Auto) [place] % (Auto) Eos % (Auto) Baso % (Auto) Neut # (Auto) Lymph # (Auto) [place] # (Auto) Eos # (Auto) Baso # (Auto) Immature Gran # (Auto) PT INR APTT PTT Ratio D-Dimer VBG pH VBG pCO2 VBG pO2 VBG HCO3 VBG O2 Saturation VBG Base Excess Barometric Pressure Sodium Potassium Chloride Carbon Dioxide Anion Gap BUN Creatinine Est Cr Clr Drug Dosing Est GFR ( Amer) Est GFR (Non-Af Amer) BUN/Creatinine Ratio Glucose Lactate Calcium Magnesium Total Bilirubin AST ALT Alkaline Phosphatase Troponin I Total Protein Albumin Globulin Albumin/Globulin Ratio Beta-Hydroxybutyric Acd Procalcitonin COVID-19 Eval [facility] Influ A Molecular Assay Negative Influ B Molecular Assay Negative SARS-CoV-2, RNA, NAAT POSITIVE A* 10/09/20 10/09/20 10/09/20 13:50 13:50 13:50 WBC RBC Hgb Hct MCV MCH MCHC RDW Std Deviation RDW Coeff of Amarjit Plt Count MPV Immature Gran % (Auto) Neut % (Auto) Lymph % (Auto) [place] % (Auto) Eos % (Auto) Baso % (Auto) Neut # (Auto) Lymph # (Auto) [place] # (Auto) Eos # (Auto) Baso # (Auto) Immature Gran # (Auto) PT Cancelled INR Cancelled APTT Cancelled PTT Ratio Cancelled D-Dimer Cancelled VBG pH VBG pCO2 VBG pO2 VBG HCO3 VBG O2 Saturation VBG Base Excess Barometric Pressure Sodium 139 Potassium 3.3 L Chloride 101 Carbon Dioxide 25 Anion Gap 12.0 H BUN 50 H Creatinine 2.23 H Est Cr Clr Drug Dosing 49.5 Est GFR ( Amer) 35.5 Est GFR (Non-Af Amer) 30.7 BUN/Creatinine Ratio 22.3 H Glucose 375 H* Lactate Calcium 9.3 Magnesium 1.9 Total Bilirubin 0.7 AST 52 H ALT 47 Alkaline Phosphatase 66 Troponin I < 0.015 Total Protein 7.9 Albumin 2.4 L Globulin 5.5 H Albumin/Globulin Ratio 0.4 L Beta-Hydroxybutyric Acd Procalcitonin 1.62 H COVID-19 Eval Order Influ A Molecular Assay Influ B Molecular Assay SARS-CoV-2, RNA, NAAT 10/09/20 10/09/20 10/09/20 13:50 13:50 13:50 WBC 7.53 RBC 4.14 L Hgb 11.8 L Hct 35.1 L MCV 84.8 MCH 28.5 MCHC 33.6 RDW Std Deviation 48.9 H RDW Coeff of Amarjit 15.8 H Plt Count 223 MPV 11.5 H Immature Gran % (Auto) 0.4 Neut % (Auto) 91.0 Lymph % (Auto) 6.0 Charlotte % (Auto) 2.4 Eos % (Auto) 0.1 Baso % (Auto) 0.1 Neut # (Auto) 6.85 H Lymph # (Auto) 0.45 L Charlotte # (Auto) 0.18 Eos # (Auto) 0.01 Baso # (Auto) 0.01 Immature Gran # (Auto) 0.03 H PT INR APTT PTT Ratio D-Dimer VBG pH 7.44 H VBG pCO2 40 VBG pO2 56 VBG HCO3 26 VBG O2 Saturation 80.1 VBG Base Excess 2.1 Barometric Pressure 736.3 Sodium Potassium Chloride Carbon Dioxide Anion Gap BUN Creatinine Est Cr Clr Drug Dosing Est GFR ( Amer) Est GFR (Non-Af Amer) BUN/Creatinine Ratio Glucose Lactate 2.9 H* Calcium Magnesium Total Bilirubin AST ALT Alkaline Phosphatase Troponin I Total Protein Albumin Globulin Albumin/Globulin Ratio Beta-Hydroxybutyric Acd Procalcitonin COVID-19 Eval Order Influ A Molecular Assay Influ B Molecular Assay SARS-CoV-2, RNA, NAAT 10/09/20 10/09/20 16:25 16:25 WBC RBC Hgb Hct MCV MCH MCHC RDW Std Deviation RDW Coeff of Amarjit Plt Count MPV Immature Gran % (Auto) Neut % (Auto) Lymph % (Auto) [place] % (Auto) Eos % (Auto) Baso % (Auto) Neut # (Auto) Lymph # (Auto) [place] # (Auto) Eos # (Auto) Baso # (Auto) Immature Gran # (Auto) PT 12.4 H INR 1.2 H APTT 40.5 H PTT Ratio 1.5 D-Dimer 1210 H* VBG pH VBG pCO2 VBG pO2 VBG HCO3 VBG O2 Saturation VBG Base Excess Barometric Pressure Sodium Potassium Chloride Carbon Dioxide Anion Gap BUN Creatinine Est Cr Clr Drug Dosing Est GFR ( Amer) Est GFR (Non-Af Amer) BUN/Creatinine Ratio Glucose Lactate 2.2 H* Calcium Magnesium Total Bilirubin AST ALT Alkaline Phosphatase Troponin I Total Protein Albumin Globulin Albumin/Globulin Ratio Beta-Hydroxybutyric Acd Procalcitonin COVID-19 Eval Order Influ A Molecular Assay Influ B Molecular Assay SARS-CoV-2, RNA, NAAT Diagnostic Findings Chest X-ray 10/09/20 - IMPRESSION: 1. Moderately extensive bilateral pulmonary airspace opacities consistent with a multifocal pneumonia. Medications Administered Discontinued Medications Albuterol (Albuterol Hfa 8 Gm Inhaler) Confirm Administered Dose 60 puffs INH .STK-MED ONE Stop: 10/09/20 13:23 Last Admin: 10/09/20 13:41 Dose: Not Given Documented by: [id number] Albuterol (Albuterol Hfa 8 Gm Inhaler) 10 puffs INH NOW ONE Stop: 10/09/20 13:19 Last Admin: 10/09/20 13:41 Dose: 10 puffs Documented by: [id number] Dexamethasone (Dexamethasone Sod Inj 10 Mg/Ml Vial) 6 mg IV NOW ONE Stop: 10/09/20 14:17 Last Admin: 10/09/20 14:17 Dose: 6 mg Documented by: [id number] Sodium Chloride (Nss 1000ml) 1,000 mls @ 999 mls/hr IV .Q1H1M ONE Stop: 10/09/20 15:17 Last Admin: 10/09/20 14:18 Dose: 999 mls/hr Documented by: [id number] Code Status & VTE Plan VTE Prophylaxis Plan VTE Prophylaxis will be ordered: Yes Supervising Physician Co-Signing Physician Notes Patient seen and examined by me, care coordinated with Joelle Jeffery PA-C, please refer to her note above for further detail. Pt is 60 y/o male with a history of insulin-requiring diabetes, obesity, severe TAD on CPAP, HTN, dyslipidemia, and psoriatic arthropathy who presented to the ED today with cough and shortness of breath after he was found to be hypoxic at a COVID testing site. Known COVID 19 exposure this past weekend. By Wednesday evening (three nights ago), he had developed a cough and loss of appetite. Cough was mostly non-productive but he is now bringing up sputum at times. He is currently lying in bed, requiring 5 L of oxygen via oxygen mask, reporting not feeling well. He is tachypneic. Lung sounds noticeable for mild bibasilar rhonchi, cough with deep inspiration. No wheezing or crackles noted. Heart sounds regular. Abdomen soft, nontender, nondistended, obese. Patient moves all 4 extremities spontaneously and without difficulty. He is alert and oriented and answering questions appropriately. Received dexamethasone in the ED, will continue. Given elevated procalcitonin, will also start empiric antibiotic, doxycycline and ceftriaxone. Given CYDNEY and elevated lactic acid, continue IV fluids and will recheck lactate and BMP. Lower extremity duplex negative for DVT. Not starting remdesivir at this time due to CYDNEY, however will reevaluate daily. We will also consider convalescent plasma, provided pt with convalescent plasma fact sheet from FDA. Shannon Sheridan MD (1) HTN (hypertension) Hypertension type: essential hypertension Qualified Code(s): I10 - Essential (primary) hypertension
[2020-10-09] MEDS ORDERED: ONDANSETRON INJ 2 MG/ML 2 ML VIAL IV PRN (20:15)
[2020-10-09] MEDS ORDERED: ACETAMINOPHEN 325 MG TAB PO PRN (20:15)
[2020-10-09] MEDS ORDERED: PHARMACY GLYCEMIC MGMT CONSULT PRN (20:15)
[2020-10-09] MEDS ORDERED: GLUCOSE 10 TABS/TUBE PO PRN (20:30)
[2020-10-09] MEDS ORDERED: GLUCOSE 40% GEL 15 GM TUBE PO PRN (20:30)
[2020-10-09] MEDS ORDERED: GLUCAGON FOR INJ 1 MG VIAL IM PRN (20:30)
[2020-10-09] MEDS ORDERED: DEXTROSE 50% 50 ML SYRINGE IV PRN (20:30)
[2020-10-09] MEDS ORDERED: CARBOHYDRATES FOR HYPOGLYCEMIA PO PRN (20:30)
[2020-10-09] MEDS ORDERED: POTASSIUM CHLORIDE CRTAB 20 MEQ TABCR PO STA (20:57)
[2020-10-09] MEDS ORDERED: INSULIN GLARGINE SOLOSTAR 100 UNITS/ML 3 ML PEN SC ONE (21:00)
[2020-10-09 21:50] LABS: BUN Creatinine Ratio 25.7 (10-20); Calcium 9.2 mg/dl (8.5-10.1); Creatinine Clr Calc Pharmacy 48.7 ml/min; Est GFR (African American) 36.5; Est GFR (Non-African American) 31.5
[2020-10-09] MEDS: SODIUM CHLORIDE 0.9% 1000ML 1,000 ML IV SCH (21:50)
[2020-10-09] MEDS: cefTRIAXone SODIUM 2,000 MG in DEXTROSE 5% 50 ML IV SCH (21:50)
[2020-10-09 21:51] LABS: Potassium 3.8 mmol/L (3.5-5.1)
[2020-10-09] MEDS: ENOXAPARIN 80 MG/0.8 ML SYR SQ SCH (21:51)
[2020-10-09] MEDS ORDERED: INSULIN HUMAN REGULAR PER UNIT 10 UNITS in SYRINGE 9.9 ML IV ONE (22:00)
[2020-10-09 22:03] LABS: Beta-Hydroxybutyrate 5.88 mg/dl (0.2-2.81)
[2020-10-09] MEDS: INSULIN ASPART 100 UNITS/ML 3 ML PEN SC SCH (22:25)
[2020-10-09] MEDS: DOXYCYCLINE HYCLATE 100 MG in DEXTROSE 5% 100 ML IV SCH (23:40)
[2020-10-10] MEDS ORDERED: INSULIN HUMAN REGULAR PER UNIT 10 UNITS in SYRINGE 9.9 ML IV ONE ×2 (00:45→12:00)
[2020-10-10] MEDS ORDERED: MAGNESIUM SULFATE / D5W 1 GM/100 ML BAG IV ONE (00:54)
[2020-10-10] MEDS: INSULIN ASPART 100 UNITS/ML 3 ML PEN SC SCH ×6 (01:07→21:22)
[2020-10-10] MEDS ORDERED: POTASSIUM CHLORIDE CRTAB 20 MEQ TABCR PO STA (01:13)
[2020-10-10 01:26] LABS: Thyroid Stimulating Hormone 0.323 uIu/ml (0.300-4.500)
[2020-10-10] MEDS: SODIUM CHLORIDE 0.9% 1000ML 1,000 ML IV SCH ×2 (03:50→19:38)
[2020-10-10 04:35] LABS: Appearance Urine Clear (Clear); Bacteria Urine Automated Negative (Negative); Bilirubin Urine Negative (Negative); Blood Urine Trace (Negative); Color Urine Yellow; Glucose Urine UA 3+ (Negative); Ketones Urine Negative (Negative); Leukocyte Esterase Urine Negative (Negative); Nitrite Urine Negative (Negative); Protein Urine 1+ (Negative); RBC Urine Automated 0-4 /hpf (0-4); Specific Gravity Urine 1.022 (1.000-1.030); Urobilinogen Urine Negative (Negative); pH Urine 5.5 (4.5-7.5)
[2020-10-10] MEDS: ENOXAPARIN 80 MG/0.8 ML SYR SQ SCH ×2 (07:52→21:32)
[2020-10-10 08:01] LABS: Basophils # (auto) 0.01 K/uL (0-0.2); Basophils % (auto) 0.2 %; Hemoglobin 11.9 g/dL (14.0-18.0); Immature Granulocytes # (auto) 0.02 K/uL (0.00-0.02); Immature Granulocytes % (auto) 0.3 %; Lymphocytes # (auto) 0.51 K/uL (1.2-3.4); Lymphocytes % (auto) 8.3 %; Mean Corpuscular Hemoglobin 27.9 pg (25-34); Mean Corpuscular Hgb Conc 33.1 g/dL (32-36); Mean Corpuscular Volume 84.5 fL (80-100); Mean Platelet Volume 11.4 fL (7.4-10.4); Monocytes # (auto) 0.24 K/uL (0.11-0.59); Monocytes % (auto) 3.9 %; Neutrophils # (auto) 5.38 K/uL (1.4-6.5); Neutrophils % (auto) 87.3 %; Platelet Count 257 K/uL (130-400); RDW Standard Deviation 49.3 fL (36.4-46.3); Red Blood Count 4.26 M/uL (4.7-6.1); White Blood Count 6.16 K/uL (4.8-10.8)
[2020-10-10 08:27] LABS: BUN Creatinine Ratio 31.2 (10-20); Calcium 9.6 mg/dl (8.5-10.1); Creatinine Clr Calc Pharmacy 52.9 ml/min; Est GFR (African American) 40.8; Est GFR (Non-African American) 35.2; Potassium 4.2 mmol/L (3.5-5.1)
[2020-10-10 08:45] LABS: Estimated Average Glucose 269 mg/dl
[2020-10-10] MEDS ORDERED: INSULIN HUMAN NPH SC SCH ×2 (09:00→17:00)
[2020-10-10] MEDS ORDERED: ATENOLOL 50 MG TABLET PO SCH (09:00)
[2020-10-10] MEDS: dexAMETHasone 6 MG in SYRINGE 0 ML IV SCH (09:07)
[2020-10-10] MEDS: DOXYCYCLINE HYCLATE 100 MG in DEXTROSE 5% 100 ML IV SCH ×2 (09:07→22:39)
[2020-10-10] MEDS: ATENOLOL 25 MG TABLET PO SCH (09:08)
[2020-10-10] MEDS ORDERED: INSULIN HUMAN NPH SC ONE (12:15)
--- NOTE | 2020-10-10 13:23 | Pulmonary Consultation ---
Date of Consultation October 10, 2020 Assessment & Plan (1) Pneumonia due to COVID-19 virus: 60 yo M with DM2, HTN, admitted for SOB due to COVID19 pneumonia. 1) COVID19 Pneumonia - COVID19 positive in ER, lymphopenic, elevated D-dimer, procal elevated - blood cultures growing gram positive cocci in clusters in one bottle, MRSA PCR negative. Would recommend Ceftriaxone and doxycycline for antibiotics given low risk for pseudomonas. - part of SOB worsened by normocytic anemia, would transfuse if Hg <7. - O2 support with goal sat 90-95% - continue 6 mg dexamethasone daily x 6 days - not a candidate for remdesivir at this time due to CYDNEY. Will defer decision for convalescent plasma to hospitalist team. - repeat CXR in AM - continue trending CBC and lytes. 2) TAD on CPAP - fairly compliant with CPAP at home - CPAP at nighttime on home settings Else as per hospitalist plan. (2) TAD on CPAP: (3) Morbid obesity: (4) HTN (hypertension): Hypertension type: essential hypertension Qualified Code(s): I10 - Essential (primary) hypertension (5) Uncontrolled diabetes mellitus: Supervising Physician Co-Signing Physician Notes Dr. Phelps was the resident-physician during care of patient. I separately evaluated patient for gutierrez portions of the history and the exam. I was present during the critical portion of medical decision making, and I discussed the case with the resident. I generally agree with the findings and plan except for any additions/exceptions noted. Continue Decadron per protocol. Patient is very hyperglycemic. Will defer to primary team in management of insulin. Patient also with CYDNEY and currently not a candidate for remdesivir given his acute kidney injury. Recommend self proning as much as possible. Ambulation in the room as tolerated. He has gram- positive bacteremia. MRSA screen was negative. Agree with ceftriaxone and doxycycline. I would recommend repeating a procalcitonin in tomorrow to make sure that we are heading in the right direction. I discussed the case with the patient's bedside nurse. Pulmonary will follow on an as-needed basis. Please call with questions. Thank you for the consult. History of Present Illness Attending Physician: Oren Edouard MD History of Present Illness 60 yo M hx Dm2, HTN admitted for worsening SOB and new oxygen requirement, found to be COVID19 positive. States that his symptoms started Wednesday night (approx 4 days ago) with worsening shortness of breath and a nonproductive cough. He states that occasionally the cough is productive but otherwise he feels like there is expectorant that isn't coming up. No hemoptysis. He denies any fevers or chills or night sweats at home. He was around a COVID positive family member over the weekend prior to being symptomatic. He doesn't note loss of smell, but says his sensation of taste has changed. He had one day of diarrhea yesterday, otherwise no nausea/vomiting. Does have a loss of appetite for the whole week. hasn't noted weight loss. Denies smoking history, vaping history, illicit drug use. ER course significant for receiving albuterol breathing treatment and IV dexamethasone 6 mg. CXR showing diffuse bilateral ground glass opacities in accordance with a multifocal pneumonia. Unable to complete CTA chest due to acute kidney injruy. Allergies Allergy/AdvReac Type Severity Reaction Status Date / Time No Known Allergies Allergy Verified 10/09/20 15:01 Home Medications Medication Instructions Recorded Confirmed Type allopurinol 300 mg PO QAM #0 tab 05/18/16 10/09/20 History cinnamon bark [Cinnamon] 500 mg PO QAM #0 05/18/16 10/09/20 History cyanocobalamin (vitamin B-12) 1,000 mcg PO QAM #0 tab 05/18/16 10/09/20 History [Vitamin B-12] glucosamine sulfate [Glucosamine] 500 mg PO QAM #0 tab 05/18/16 10/09/20 History metformin 1,000 mg PO BID #0 tab 05/18/16 10/09/20 History omega-3 fatty acids [Fish Oil 1,000 mg PO QAM #0 cap 05/18/16 10/09/20 History Concentrate] grape seed extract [Grape Seed] 50 mg PO QAM #0 07/08/16 10/09/20 History zinc 50 mg PO QAM #0 07/08/16 10/09/20 History calcium carbonate [Calcium 600] 600 mg PO QAM #0 03/17/18 10/09/20 History cholecalciferol (vitamin D3) 25 mcg PO QAM 90 Days #90 tab 03/17/18 10/09/20 History [Vitamin D3] garlic 2,000 mg PO QAM #0 03/17/18 10/09/20 History ketoconazole 1 ea TOPICAL DIRECTED 30 Days 03/17/18 10/09/20 History #120 ml acetaminophen [Tylenol Extra 500 mg PO Q8H PRN 10/09/20 10/09/20 History Strength] aspirin 81 mg PO QAM 10/09/20 10/09/20 History atenolol-chlorthalidone 1 tab PO QAM 10/09/20 10/09/20 History atorvastatin 40 mg PO PM 10/09/20 10/09/20 History flurbiprofen 100 mg PO QAM 10/09/20 10/09/20 History glimepiride 4 mg PO QAM 10/09/20 10/09/20 History losartan 100 mg PO QAM 10/09/20 10/09/20 History magnesium oxide 400 mg PO QAM 10/09/20 10/09/20 History Patient History Medical History Diabetes mellitus type II, controlled Dyslipidemia Gout HTN (hypertension) Morbid obesity TAD on CPAP Psoriatic arthropathy Surgical History H/O meniscectomy of right knee "1994 Dr. Bernard" H/O wisdom tooth extraction Hx of total knee arthroplasty "R TKA Dr. 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: No Beliefs That Will Affect Care: None marital status: Current Living Situation: Spouse current occupational status: employed Other Information That Helps Us Care for You: No Feels Safe at Home: Yes Safety Concerns: Feels Safe At This Time Assistive Devices: Oxygen - Continuous Review of Systems Constitutional: + fatigue and + malaise; no fever, no chills and no sweats Ear, Nose, Mouth, Throat: + post nasal drip and + dry mouth Cardiovascular: + dyspnea and + dyspnea on exertion; no chest pain, no palpitations, no lightheadedness and no edema Gastrointestinal: no abdominal pain, no nausea, no vomiting, no hematemesis, no pain with swallowing, no constipation and no diarrhea/loose stools Neurologic: - anosmia, +ageusia Physical Exam Physical Exam: VITAL SIGNS - Vital signs and nursing notes were reviewed. GENERAL - 60 -year-old M sitting up at bedside, somewhat short of breath SKIN - Without rashes. HEAD - NC/AT. EYES - PERRL. Sclera anicteric. Palpebral conjunctiva pink and moist with no injection noted. EARS - No deformities of external structures noted on gross examination bilaterally. NOSE - Midline and without cyanosis. No epistaxis or purulent drainage noted. MOUTH/OROPHARYNX - Without perioral cyanosis. breathing on 8L oxymask LUNGS - poor isnpiratory effort, poor air movement throughout all lung cool. difficult to auscultate. nonproductive cough. No nasal flaring or chest wall retractions with breathing CARDIAC - RRR. No murmur, rubs, or gallops appreciated. ABDOMEN -soft nontender protuberant abdomen with normal bowel sounds. EXTREMITIES - reddish skin changes on bilteral shins likely chronic venous stasis, notable loose skin behind calf muscles Results & Data Results & Data ([facility]) Vital Signs (Past 12 Hours) Vital Signs Temp Pulse Pulse Resp BP Pulse Ox 10/10/20 11:48 34.6 C L 58 L 20 164/79 H 96 10/10/20 11:00 92 10/10/20 09:15 22 93 10/10/20 09:08 64 10/10/20 07:47 36.4 C L 59 L 18 140/67 95 10/10/20 04:24 36.1 C L 56 L 16 138/70 94 10/10/20 02:28 56 L 18 89 L Laboratory Results WBC 6.16 K/uL (4.8-10.8) 10/10/20 07:45 RBC 4.26 M/uL (4.7-6.1) L 10/10/20 07:45 Hgb 11.9 g/dL (14.0-18.0) L 10/10/20 07:45 Hct 36.0 % (42-52) L 10/10/20 07:45 MCV 84.5 fL (80-100) 10/10/20 07:45 MCH 27.9 pg (25-34) 10/10/20 07:45 MCHC 33.1 g/dL (32-36) 10/10/20 07:45 RDW Std Deviation 49.3 fL (36.4-46.3) H 10/10/20 07:45 RDW Coeff of Amarjit 16.0 % (11.5-14.5) H 10/10/20 07:45 Plt Count 257 K/uL (130-400) 10/10/20 07:45 MPV 11.4 fL (7.4-10.4) H 10/10/20 07:45 Immature Gran % (Auto) 0.3 % 10/10/20 07:45 Neut % (Auto) 87.3 % 10/10/20 07:45 Lymph % (Auto) 8.3 % 10/10/20 07:45 [place] % (Auto) 3.9 % 10/10/20 07:45 Eos % (Auto) 0.0 % 10/10/20 07:45 Baso % (Auto) 0.2 % 10/10/20 07:45 Neut # (Auto) 5.38 K/uL (1.4-6.5) 10/10/20 07:45 Lymph # (Auto) 0.51 K/uL (1.2-3.4) L 10/10/20 07:45 [place] # (Auto) 0.24 K/uL (0.11-0.59) 10/10/20 07:45 Eos # (Auto) 0.00 K/uL (0-0.5) 10/10/20 07:45 Baso # (Auto) 0.01 K/uL (0-0.2) 10/10/20 07:45 Immature Gran # (Auto) 0.02 K/uL (0.00-0.02) 10/10/20 07:45 PT 12.4 Seconds (9.0-12.0) H 10/09/20 16:25 INR 1.2 (0.9-1.1) H 10/09/20 16:25 APTT 40.5 Seconds (21.0-31.0) H 10/09/20 16:25 PTT Ratio 1.5 10/09/20 16:25 D-Dimer 1210 ug/L FEU (0-500) H* 10/09/20 16:25 VBG pH 7.44 (7.36-7.41) H 10/09/20 13:50 VBG pCO2 40 mmHg (38-50) 10/09/20 13:50 VBG pO2 56 mmHg 10/09/20 13:50 VBG HCO3 26 mmol/L 10/09/20 13:50 VBG O2 Saturation 80.1 % 10/09/20 13:50 VBG Base Excess 2.1 mEq/L 10/09/20 13:50 Barometric Pressure 736.3 mm/Hg 10/09/20 13:50 Sodium 142 mmol/L (136-145) 10/10/20 07:45 Potassium 4.2 mmol/L (3.5-5.1) 10/10/20 07:45 Chloride 107 mmol/L (98-107) 10/10/20 07:45 Carbon Dioxide 30 mmol/L (21-32) 10/10/20 07:45 Anion Gap 5.0 (3-11) 10/10/20 07:45 BUN 62 mg/dl (7-18) H 10/10/20 07:45 Creatinine 1.99 mg/dl (0.6-1.4) H 10/10/20 07:45 Est Cr Clr Drug Dosing 52.9 ml/min 10/10/20 07:45 Est GFR ( Amer) 40.8 10/10/20 07:45 Est GFR (Non-Af Amer) 35.2 10/10/20 07:45 BUN/Creatinine Ratio 31.2 (10-20) H 10/10/20 07:45 Glucose 247 mg/dl (70-99) H 10/10/20 07:45 POC Glucose 365 mg/dl (70-99) H* 10/10/20 11:43 Estimat Average Glucose 269 mg/dl 10/10/20 07:45 Hemoglobin A1c 11.0 % (4.5-5.6) H 10/10/20 07:45 Lactate 2.2 mmol/L (0.4-2.0) H* 10/09/20 21:10 Calcium 9.6 mg/dl (8.5-10.1) 10/10/20 07:45 Magnesium 1.9 mg/dl (1.8-2.4) 10/09/20 13:50 Total Bilirubin 0.7 mg/dl (0.2-1) 10/09/20 13:50 AST 52 U/L (15-37) H 10/09/20 13:50 ALT 47 U/L (12-78) 10/09/20 13:50 Alkaline Phosphatase 66 U/L (45-117) 10/09/20 13:50 Troponin I < 0.015 ng/ml (0-0.045) 10/09/20 13:50 Total Protein 7.9 gm/dl (6.4-8.2) 10/09/20 13:50 Albumin 2.4 gm/dl (3.4-5.0) L 10/09/20 13:50 Globulin 5.5 gm/dl (2.5-4.0) H 10/09/20 13:50 Albumin/Globulin Ratio 0.4 (0.9-2) L 10/09/20 13:50 Beta-Hydroxybutyric Acd 5.88 mg/dl (0.2-2.81) H 10/09/20 21:10 Procalcitonin 1.62 ng/ml (0-0.5) H 10/09/20 13:50 TSH 0.323 uIu/ml (0.300-4.500) 10/09/20 21:10 Urine Color Yellow 10/10/20 03:34 Urine Appearance Clear (Clear) 10/10/20 03:34 Urine pH 5.5 (4.5-7.5) 10/10/20 03:34 Ur Specific [place] 1.022 (1.000-1.030) 10/10/20 03:34 Urine Protein 1+ (Negative) H 10/10/20 03:34 Urine Glucose (UA) 3+ (Negative) H 10/10/20 03:34 Urine Ketones Negative (Negative) 10/10/20 03:34 Urine Blood Trace (Negative) H 10/10/20 03:34 Urine Nitrite Negative (Negative) 10/10/20 03:34 Urine Bilirubin Negative (Negative) 10/10/20 03:34 Urine Urobilinogen Negative (Negative) 10/10/20 03:34 Ur Leukocyte Esterase Negative (Negative) 10/10/20 03:34 Urine WBC (Auto) 1-5 /hpf (0-5) 10/10/20 03:34 Urine RBC (Auto) 0-4 /hpf (0-4) 10/10/20 03:34 U Hyaline Cast (Auto) 5-10 /lpf (0-5) H 10/10/20 03:34 U Epithel Cells (Auto) 10-20 /lpf (0-5) H 10/10/20 03:34 Urine Bacteria (Auto) Negative (Negative) 10/10/20 03:34 COVID-19 Eval Order Covid19 IDNow [facility] 10/09/20 13:38 Hepatitis C Ab Screen Neg (Neg) 10/10/20 07:45 Influ A Molecular Assay Negative (Negative) 10/09/20 13:38 Influ B Molecular Assay Negative (Negative) 10/09/20 13:38 SARS-CoV-2, RNA, NAAT POSITIVE (NEGATIVE) A* 10/09/20 13:38 Resident Activity Tracking Resident Involvement: Resident Care Provided Care Provided: [facility]
[2020-10-10] MEDS: PANTOprazole 40 MG in SYRINGE 0 ML IV SCH (13:31)
--- NOTE | 2020-10-10 14:54 | Pharmacy Report ---
Pharmacy Glycemic Short Note 2 - Date of Service October 10, 2020 - Glycemic Short BSG Results (Last 24 hours): 10/09/20 10/09/20 10/09/20 13:50 21:10 21:53 Glucose 375 H* 483 H* POC Glucose 512 H* 10/10/20 10/10/20 10/10/20 00:15 00:18 04:21 Glucose POC Glucose 418 H* 423 H* 258 H 10/10/20 10/10/20 10/10/20 07:43 07:45 11:43 Glucose 247 H POC Glucose 252 H 365 H* OUTPATIENT ANTIDIABETIC REGIMEN: * amaryl, metformin ASSESSMENT: * 60 year old admitted with COVID pneumonia, type 2 diabetic managed only on oral agents at home * A1c of 11% on admission indicating poor outpatient glucose control. Received total of 114 units of insulin yesterday, of which 50 were basal insulin * Plan to start NPH this AM to be given with dexamethasone. Utilizing 0.3 unit/kg dosing adjusted body weight / went with lower dosing as large basal dose from last evening still on board PLAN FOR INPATIENT GLYCEMIC CONTROL: * Hold outpatient oral diabetes medications * Basal insulin * Lantus 40-50 units HS * NPH 30 units to cover steroids daily * Bolus insulin * NovoLog per scale ACHS or Q6hrs while NPO * Goal Range: Low 110 mg/dL - High 140 mg/dL * Correction Factor: 12 mg/dL/unit * Nutritional / Prandial insulin per carb ratio of 1 unit per 5 grams CHO consumed PLAN FOR DISCHARGE: * tbd
[2020-10-10] MEDS ORDERED: ACETAMINOPHEN 500 MG TAB PO SCH (16:00)
--- NOTE | 2020-10-10 17:59 | Billing Data ---
Date of Service October 10, 2020 Coding Level of Care Code 06688 Inpt Consult Level 5
--- NOTE | 2020-10-10 18:38 | Hospitalist Progress Note ---
Date of Service October 10, 2020 Assessment & Plan (1) Pneumonia due to COVID-19 virus: with Acute Hypoxic Respiratory Failure now on 8 L of o2 via nasal cannula not a Candidate for remdesivir in light of acute renal failur Continue dexamethasone day number 2 out of 10 Patient agreeable for convalescent plasma, day 1 out of 2 Continue Lovenox subcutaneous twice daily for DVT prophylaxis Pulmonary service consulted Continue to monitor closely Possible component of bacterial pneumonia Patient has elevated procalcitonin Check for sputum culture Nasal MRSA negative Continue doxycycline Possible gram-positive bacteremia Blood culture 1 out of 2 bottle positive for gram-positive cocci in clusters Negative for MRSA nasal swab and blood PCR No signs of sepsis Continue to monitor On doxycycline (2) Hypoxia: Wean off oxygen as able (3) Acute kidney injury: Suspect in part related to dehydration from lack of oral intake - received 1 L IVF bolus in ED. Receiving second liter at 125 ml/hr. -Creatinine improved from 2.2-1.9 -Gentle IV fluids - Holding losartan and chlorthalidone (4) Diabetes mellitus type II, controlled: Pharmacy consult for glycemic management in view of insulin requirements and addition of steroids - Diabetic diet - Accuchecks - Holding home Metformin (5) HTN (hypertension): BP elevated in the ED - Continue home atenolol with holds. Holding other BP meds due to CYDNEY - Add prn hydralazine for SBP > 180 (6) TAD on CPAP: Continue CPAP QHS per protocol. (7) Dyslipidemia: Holding statin for now - will resume once pt more stable. DVT Prophylaxis Lovenox SC Disposition pending lives at home with family Admission and Anticipated Discharge Date Admission Date: October 09, 2020 Subjective ff up for COVID 19 pneumonia, hypoxic respiratory failure, etc seen sitting up in bed, not in distress just had dinner states he feels slightly better today than yesterday breathing is about the same as yesterday has intermittent productive cough- brown sputum denies chest pain, headache, dizziness, nausea/vomiting, abdominal pain no chills no other symptoms Review of Systems Review of Systems: All systems reviewed & are unremarkable except as noted in Subjective Physical Exam Physical Exam: General- oriented x 3, not in distress, speaks in sentences with no effort or accessory muscle use Head- atraumatic Eyes- PERRL, EOMI, anicteric ENT- oropharynx clear Neck- supple, no JVD, no adenopathy, no thyromegaly; carotids +2/2, no bruits appreciated Lungs- (+) bibasilar rales no wheezing good air entry bilaterally Heart- normal rate, regular rhythm; no murmur, no gallop, no rub appreciated Abdomen- normal bowel sounds, nondistended, soft, nontender, no masses or hepatosplenomegaly Extremities- no pretibial edema, no calf tenderness; peripheral pulses intact Neuro- alert, oriented x 3; CN 2-12 grossly intact; motor 5/5 bilaterally;sensation 100% on all extremities; no other gross focal neurologic deficits Skin- warm & dry Results & Data Results & Data ([facility]) Vital Signs (Past 12 Hours) Vital Signs Temp Pulse Resp BP Pulse Ox 10/10/20 15:41 36.4 C L 52 L 20 171/68 H 94 10/10/20 14:36 93 10/10/20 13:36 20 92 10/10/20 11:48 34.6 C L 58 L 20 164/79 H 96 10/10/20 11:00 92 10/10/20 09:15 22 93 10/10/20 09:08 64 10/10/20 07:47 36.4 C L 59 L 18 140/67 95 Laboratory Results Laboratory Results - last 24 hr 10/09/20 10/09/20 10/09/20 13:50 21:10 21:10 WBC RBC Hgb Hct MCV MCH MCHC RDW Std Deviation RDW Coeff of Amarjit Plt Count MPV Immature Gran % (Auto) Neut % (Auto) Lymph % (Auto) [place] % (Auto) Eos % (Auto) Baso % (Auto) Neut # (Auto) Lymph # (Auto) [place] # (Auto) Eos # (Auto) Baso # (Auto) Immature Gran # (Auto) Sodium 138 Potassium 3.8 D Chloride 101 Carbon Dioxide 27 Anion Gap 10.0 BUN 56 H Creatinine 2.18 H Est Cr Clr Drug Dosing 48.7 Est GFR ( Amer) 36.5 Est GFR (Non-Af Amer) 31.5 BUN/Creatinine Ratio 25.7 H Glucose 483 H* POC Glucose Estimat Average Glucose Hemoglobin A1c Lactate 2.2 H* Calcium 9.2 Beta-Hydroxybutyric Acd 5.88 H TSH 0.323 Urine Color Urine Appearance Urine pH Ur Specific [place] Urine Protein Urine Glucose (UA) Urine Ketones Urine Blood Urine Nitrite Urine Bilirubin Urine Urobilinogen Ur Leukocyte Esterase Urine WBC (Auto) Urine RBC (Auto) U Hyaline Cast (Auto) U Epithel Cells (Auto) Urine Bacteria (Auto) Hepatitis C Ab Screen Bld Cult Staph aureus PCR Negative Blood Culture MRSA PCR Negative Blood Type Antibody Screen 10/09/20 10/10/20 10/10/20 21:53 00:15 00:18 WBC RBC Hgb Hct MCV MCH MCHC RDW Std Deviation RDW Coeff of Amarjit Plt Count MPV Immature Gran % (Auto) Neut % (Auto) Lymph % (Auto) [place] % (Auto) Eos % (Auto) Baso % (Auto) Neut # (Auto) Lymph # (Auto) [place] # (Auto) Eos # (Auto) Baso # (Auto) Immature Gran # (Auto) Sodium Potassium Chloride Carbon Dioxide Anion Gap BUN Creatinine Est Cr Clr Drug Dosing Est GFR ( Amer) Est GFR (Non-Af Amer) BUN/Creatinine Ratio Glucose POC Glucose 512 H* 418 H* 423 H* Estimat Average Glucose Hemoglobin A1c Lactate Calcium Beta-Hydroxybutyric Acd TSH Urine Color Urine Appearance Urine pH Ur Specific [place] Urine Protein Urine Glucose (UA) Urine Ketones Urine Blood Urine Nitrite Urine Bilirubin Urine Urobilinogen Ur Leukocyte Esterase Urine WBC (Auto) Urine RBC (Auto) U Hyaline Cast (Auto) U Epithel Cells (Auto) Urine Bacteria (Auto) Hepatitis C Ab Screen Bld Cult Staph aureus PCR Blood Culture MRSA PCR Blood Type Antibody Screen 10/10/20 10/10/20 10/10/20 03:34 04:21 07:43 WBC RBC Hgb Hct MCV MCH MCHC RDW Std Deviation RDW Coeff of Amarjit Plt Count MPV Immature Gran % (Auto) Neut % (Auto) Lymph % (Auto) [place] % (Auto) Eos % (Auto) Baso % (Auto) Neut # (Auto) Lymph # (Auto) [place] # (Auto) Eos # (Auto) Baso # (Auto) Immature Gran # (Auto) Sodium Potassium Chloride Carbon Dioxide Anion Gap BUN Creatinine Est Cr Clr Drug Dosing Est GFR ( Amer) Est GFR (Non-Af Amer) BUN/Creatinine Ratio Glucose POC Glucose 258 H 252 H Estimat Average Glucose Hemoglobin A1c Lactate Calcium Beta-Hydroxybutyric Acd TSH Urine Color Yellow Urine Appearance Clear Urine pH 5.5 Ur Specific [place] 1.022 Urine Protein 1+ H Urine Glucose (UA) 3+ H Urine Ketones Negative Urine Blood Trace H Urine Nitrite Negative Urine Bilirubin Negative Urine Urobilinogen Negative Ur Leukocyte Esterase Negative Urine WBC (Auto) 1-5 Urine RBC (Auto) 0-4 U Hyaline Cast (Auto) 5-10 H U Epithel Cells (Auto) 10-20 H Urine Bacteria (Auto) Negative Hepatitis C Ab Screen Bld Cult Staph aureus PCR Blood Culture MRSA PCR Blood Type Antibody Screen 10/10/20 10/10/20 10/10/20 07:45 07:45 07:45 WBC 6.16 RBC 4.26 L Hgb 11.9 L Hct 36.0 L MCV 84.5 MCH 27.9 MCHC 33.1 RDW Std Deviation 49.3 H RDW Coeff of Amarjit 16.0 H Plt Count 257 MPV 11.4 H Immature Gran % (Auto) 0.3 Neut % (Auto) 87.3 Lymph % (Auto) 8.3 [place] % (Auto) 3.9 Eos % (Auto) 0.0 Baso % (Auto) 0.2 Neut # (Auto) 5.38 Lymph # (Auto) 0.51 L [place] # (Auto) 0.24 Eos # (Auto) 0.00 Baso # (Auto) 0.01 Immature Gran # (Auto) 0.02 Sodium 142 Potassium 4.2 Chloride 107 Carbon Dioxide 30 Anion Gap 5.0 BUN 62 H Creatinine 1.99 H Est Cr Clr Drug Dosing 52.9 Est GFR ( Amer) 40.8 Est GFR (Non-Af Amer) 35.2 BUN/Creatinine Ratio 31.2 H Glucose 247 H POC Glucose Estimat Average Glucose Hemoglobin A1c Lactate Calcium 9.6 Beta-Hydroxybutyric Acd TSH Urine Color Urine Appearance Urine pH Ur Specific [place] Urine Protein Urine Glucose (UA) Urine Ketones Urine Blood Urine Nitrite Urine Bilirubin Urine Urobilinogen Ur Leukocyte Esterase Urine WBC (Auto) Urine RBC (Auto) U Hyaline Cast (Auto) U Epithel Cells (Auto) Urine Bacteria (Auto) Hepatitis C Ab Screen Neg Bld Cult Staph aureus PCR Blood Culture MRSA PCR Blood Type Antibody Screen 10/10/20 10/10/20 10/10/20 07:45 11:43 16:30 WBC RBC Hgb Hct MCV MCH MCHC RDW Std Deviation RDW Coeff of Amarjit Plt Count MPV Immature Gran % (Auto) Neut % (Auto) Lymph % (Auto) [place] % (Auto) Eos % (Auto) Baso % (Auto) Neut # (Auto) Lymph # (Auto) [place] # (Auto) Eos # (Auto) Baso # (Auto) Immature Gran # (Auto) Sodium Potassium Chloride Carbon Dioxide Anion Gap BUN Creatinine Est Cr Clr Drug Dosing Est GFR ( Amer) Est GFR (Non-Af Amer) BUN/Creatinine Ratio Glucose POC Glucose 365 H* Estimat Average Glucose 269 Hemoglobin A1c 11.0 H Lactate Calcium Beta-Hydroxybutyric Acd TSH Urine Color Urine Appearance Urine pH Ur Specific [place] Urine Protein Urine Glucose (UA) Urine Ketones Urine Blood Urine Nitrite Urine Bilirubin Urine Urobilinogen Ur Leukocyte Esterase Urine WBC (Auto) Urine RBC (Auto) U Hyaline Cast (Auto) U Epithel Cells (Auto) Urine Bacteria (Auto) Hepatitis C Ab Screen Bld Cult Staph aureus PCR Blood Culture MRSA PCR Blood Type B Negative Antibody Screen NEGATIVE 10/10/20 16:55 WBC RBC Hgb Hct MCV MCH MCHC RDW Std Deviation RDW Coeff of Amarjit Plt Count MPV Immature Gran % (Auto) Neut % (Auto) Lymph % (Auto) [place] % (Auto) Eos % (Auto) Baso % (Auto) Neut # (Auto) Lymph # (Auto) [place] # (Auto) Eos # (Auto) Baso # (Auto) Immature Gran # (Auto) Sodium Potassium Chloride Carbon Dioxide Anion Gap BUN Creatinine Est Cr Clr Drug Dosing Est GFR ( Amer) Est GFR (Non-Af Amer) BUN/Creatinine Ratio Glucose POC Glucose 256 H Estimat Average Glucose Hemoglobin A1c Lactate Calcium Beta-Hydroxybutyric Acd TSH Urine Color Urine Appearance Urine pH Ur Specific [place] Urine Protein Urine Glucose (UA) Urine Ketones Urine Blood Urine Nitrite Urine Bilirubin Urine Urobilinogen Ur Leukocyte Esterase Urine WBC (Auto) Urine RBC (Auto) U Hyaline Cast (Auto) U Epithel Cells (Auto) Urine Bacteria (Auto) Hepatitis C Ab Screen Bld Cult Staph aureus PCR Blood Culture MRSA PCR Blood Type Antibody Screen (1) HTN (hypertension) Hypertension type: essential hypertension Qualified Code(s): I10 - Essential (primary) hypertension
[2020-10-10] MEDS ORDERED: INSULIN GLARGINE SOLOSTAR 100 UNITS/ML 3 ML PEN SC SCH (21:00)
[2020-10-10] MEDS: cefTRIAXone SODIUM 2,000 MG in DEXTROSE 5% 50 ML IV SCH (21:33)
[2020-10-10] MEDS: guaiFENesin 600 MG TABCR PO SCH (21:33)
[2020-10-11] MEDS: INSULIN ASPART 100 UNITS/ML 3 ML PEN SC SCH ×6 (00:18→21:27)
[2020-10-11] MEDS: SODIUM CHLORIDE 0.9% 1000ML 1,000 ML IV SCH (07:28)
[2020-10-11] MEDS ORDERED: INSULIN HUMAN NPH SC SCH (08:00)
[2020-10-11] MEDS: dexAMETHasone 6 MG in SYRINGE 0 ML IV SCH (08:30)
[2020-10-11] MEDS: ENOXAPARIN 80 MG/0.8 ML SYR SQ SCH ×2 (08:32→19:22)
[2020-10-11] MEDS: guaiFENesin 600 MG TABCR PO SCH ×2 (08:33→21:10)
[2020-10-11] MEDS: ATENOLOL 25 MG TABLET PO SCH (08:36)
--- NOTE | 2020-10-11 08:44 | Pharmacy Report ---
Pharmacy Glycemic Short Note 2 - Date of Service October 11, 2020 - Glycemic Short BSG Results (Last 24 hours): 10/10/20 10/10/20 10/10/20 11:43 16:55 20:24 POC Glucose 365 H* 256 H 282 H 10/11/20 10/11/20 10/11/20 00:02 04:21 07:46 POC Glucose 336 H* 245 H 178 H OUTPATIENT ANTIDIABETIC REGIMEN: * Glimepiride 4 mg PO daily * Metformin 1000 mg PO BIDM * HbA1c: 11% (10/10/20) ASSESSMENT: 10/11: * BSGs elevated yesterday at 252, 365, 256, 282, and 336 mg/dL * Patient received 191 units of insulin (30 units of NPH, 50 units of basal, 10 units of IV regular insulin, and 101 units of prandial/correctional) * Fasting BSG of 178 mg/dL this morning * Will give 0.4 unit/kg based on adjusted body weight of NPH (i.e. 40 units) SC daily with IV dexamethasone * Tighten Novolog based on persistently elevated BSGs yesterday * Will plan to continue similar dose of basal (change to Lantus scale BID) 10/10: * 60 year old admitted with COVID pneumonia, type 2 diabetic managed only on oral agents at home * A1c of 11% on admission indicating poor outpatient glucose control. Received total of 114 units of insulin yesterday, of which 50 were basal insulin * Plan to start NPH this AM to be given with dexamethasone. Utilizing 0.3 unit/kg dosing adjusted body weight / went with lower dosing as large basal dose from last evening still on board PLAN FOR INPATIENT GLYCEMIC CONTROL: * Hold outpatient oral diabetes medications * Basal insulin - increase NPH, Lantus scale BID * Lantus 20-30 units SC BID (see EHR for details) * NPH 40 units to cover steroids daily * Bolus insulin - tighten * NovoLog per scale ACHS or Q6hrs while NPO * Goal Range: Low 110 mg/dL - High 140 mg/dL * Correction Factor: 12 mg/dL/unit * Nutritional / Prandial insulin per carb ratio of 1 unit per 3 grams CHO consumed PLAN FOR DISCHARGE: * tbd
[2020-10-11] MEDS ORDERED: INSULIN GLARGINE SOLOSTAR 100 UNITS/ML 3 ML PEN SC SCH (09:00)
[2020-10-11] MEDS: DOXYCYCLINE HYCLATE 100 MG in DEXTROSE 5% 100 ML IV SCH ×2 (10:55→22:06)
[2020-10-11] MEDS: PANTOprazole 40 MG in SYRINGE 0 ML IV SCH (11:40)
[2020-10-11] MEDS ORDERED: amLODIPine BESYLATE 5 MG TAB PO ONE ×2 (11:45→18:45)
[2020-10-11 12:37] LABS: BUN Creatinine Ratio 44.4 (10-20); Calcium 9.3 mg/dl (8.5-10.1); Creatinine Clr Calc Pharmacy 71.7 ml/min; Est GFR (African American) 58.8; Est GFR (Non-African American) 50.8; Potassium 3.6 mmol/L (3.5-5.1)
[2020-10-11] MEDS: hydrALAZINE HCL 20 MG/ML VIAL IV PRN (16:59)
--- NOTE | 2020-10-11 20:40 | Hospitalist Progress Note ---
Date of Service October 11, 2020 Assessment & Plan (1) Pneumonia due to COVID-19 virus: with Acute Hypoxic Respiratory Failure now on 8 L of o2 via nasal cannula not a Candidate for remdesivir in light of acute renal failur Continue dexamethasone day number 2 out of 10 Patient agreeable for convalescent plasma, day 1 out of 2 Continue Lovenox subcutaneous twice daily for DVT prophylaxis Pulmonary service consulted Continue to monitor closely 10/11/2020 Now down to 5 L of O2 via nasal cannula Continue dexamethasone day 3 out of 10 Awaiting convalescent plasma transfusion Continue Lovenox DVT phylaxis Consider remdesivir if kidney function continues to improve Possible component of bacterial pneumonia Patient has elevated procalcitonin Check for sputum culture Nasal MRSA negative Continue doxycycline Possible gram-positive bacteremia, staph species Blood culture 1 out of 2 bottle positive for gram-positive cocci in clusters Negative for MRSA nasal swab and blood PCR No signs of sepsis Continue to monitor On doxycycline (2) Hypoxia: Wean off oxygen as able (3) Acute kidney injury: Suspect in part related to dehydration from lack of oral intake - received 1 L IVF bolus in ED. Receiving second liter at 125 ml/hr. -Creatinine improved from 2.2-1.9--> 1.4 -Gentle IV fluids - Holding losartan and chlorthalidone (4) Diabetes mellitus type II, controlled: Pharmacy consult for glycemic management in view of insulin requirements and addition of steroids - Diabetic diet - Accuchecks - Holding home Metformin (5) HTN (hypertension): BP elevated in the ED - Continue home atenolol with holds. Holding other BP meds due to CYDNEY - Add prn hydralazine for SBP > 160 -Amlodipine 10 mg p.o. daily added (6) TAD on CPAP: Continue CPAP QHS per protocol. (7) Dyslipidemia: Holding statin for now DVT Prophylaxis Lovenox SC Disposition pending lives at home with family Admission and Anticipated Discharge Date Admission Date: October 09, 2020 Subjective For COVID-19 pneumonia, acute hypoxic respiratory failure, etc. Seen resting in bed, comfortable, not in distress, sitting up, now on 5 L of nasal cannula States he feels improved today Less shortness of breath, less cough, no chest pain, no leg pain Appetite is good No other symptom Review of Systems Review of Systems: All systems reviewed & are unremarkable except as noted in Subjective Physical Exam Physical Exam: General- oriented x 3, not in distress, speaks in sentences with no effort or accessory muscle use Eyes- anicteric Neck- no JVD Lungs-mild crackles at the bases, improving, no wheezing, good air entry bilaterally Heart- normal rate, regular rhythm; no murmurs Abdomen- normal bowel sounds, nondistended, soft, nontender Extremities- no pretibial edema, no calf tenderness Neuro- alert, oriented x 3; no gross focal neurologic deficits Skin- warm & dry Results & Data Results & Data ([facility]) Vital Signs (Past 12 Hours) Vital Signs Temp Pulse Resp BP Pulse Ox 10/11/20 16:04 36.4 C L 48 L 20 169/76 H 95 10/11/20 10:58 36.3 C L 53 L 20 192/78 H 93 10/11/20 10:02 93 10/11/20 08:43 20 92 Laboratory Results Laboratory Results - last 24 hr 10/11/20 10/11/20 10/11/20 00:02 04:21 07:46 Sodium Potassium Chloride Carbon Dioxide Anion Gap BUN Creatinine Est Cr Clr Drug Dosing Est GFR ( Amer) Est GFR (Non-Af Amer) BUN/Creatinine Ratio Glucose POC Glucose 336 H* 245 H 178 H Calcium 10/11/20 10/11/20 10/11/20 11:01 11:52 16:07 Sodium 140 Potassium 3.6 Chloride 107 Carbon Dioxide 26 Anion Gap 7.0 BUN 65 H Creatinine 1.47 H D Est Cr Clr Drug Dosing 71.7 Est GFR ( Amer) 58.8 Est GFR (Non-Af Amer) 50.8 BUN/Creatinine Ratio 44.4 H Glucose 202 H POC Glucose 209 H 235 H Calcium 9.3 10/11/20 20:34 Sodium Potassium Chloride Carbon Dioxide Anion Gap BUN Creatinine Est Cr Clr Drug Dosing Est GFR ( Amer) Est GFR (Non-Af Amer) BUN/Creatinine Ratio Glucose POC Glucose 189 H Calcium Medications Administered Current Inpatient Medications Acetaminophen (Acetaminophen 325 Mg Tab) 650 mg PO Q4H PRN PRN Reason: Pain or Fever Stop: 11/08/20 20:14 Amlodipine Besylate (A[facility]ipine Besylate 5 Mg Tab) [facility] [place]: 11/11/20 08:59 Atenolol (Atenolol 25 Mg Tablet) [facility]: 11/09/20 08:59 Last Admin: 10/11/20 08:36 Dose: Not Given Documented by: Dextrose (Dextrose 50% 50 Ml Syringe) 25 - 50 ml IV UD PRN; Protocol PRN Reason: Hypoglycemia Protocol Stop: 11/08/20 20:29 Enoxaparin Sodium (Enoxaparin 80 Mg/0.8 Ml Syr) 70 mg SQ BID@0800,2000 [facility] Stop: 11/08/20 21:59 Last Admin: 10/11/20 19:22 Dose: 70 mg Documented by: Glucagon (Glucagon For Inj 1 Mg Vial) 1 mg IM UD PRN; Protocol PRN Reason: Hypoglycemia Protocol Stop: 11/08/20 20:29 Glucose (Glucose 40% Gel 15 Gm Tube) 15 - 30 gm PO UD PRN; Protocol PRN Reason: Hypoglycemia Protocol Stop: 11/08/20 20:29 Glucose (Glucose 10 Tabs/Tube) 4 - 8 tabs PO UD PRN; Protocol PRN Reason: Hypoglycemia Protocol Stop: 11/08/20 20:29 Guaifenesin (Guaifenesin 600 Mg Tabcr) 1,200 mg PO Q12 [facility]ON[facility] Stop: 11/09/20 20:59 Last Admin: 10/11/20 08:33 Dose: 1,200 mg Documented by: Hydralazine HCl (Hydralazine Hcl 20 Mg/Ml Vial) 10 mg IV Q6H PRN PRN Reason: hypertension Stop: 11/10/20 11:44 Last Admin: 10/11/20 16:59 Dose: 10 mg Documented by: Ceftriaxone Sodium 2,000 mg/ (Dextrose) 70 mls @ 100 mls/hr IV Q24H [facility]; Protocol Stop: 10/16/20 20:59 Last Infusion: 10/10/20 22:15 Dose: Infused Documented by: Doxycycline Hyclate 100 mg/ (Dextrose) 110 mls @ 50 mls/hr IV Q12H [facility] Stop: 10/16/20 20:14 Last Infusion: 10/11/20 13:46 Dose: Infused Documented by: Dexamethasone Sodium Phosphate (6 mg/ Syringe) 1.5 mls @ 1 mls/min IV DAILY@0800 [facility] Stop: 10/18/20 08:02 Last Admin: 10/11/20 08:30 Dose: 1 mls/min Documented by: Pantoprazole Sodium 40 mg/ (Syringe) 10 mls @ 5 mls/min IV DAILY@1200 [facility] Stop: 11/09/20 11:59 Last Admin: 10/11/20 11:40 Dose: 5 mls/min Documented by: Insulin Aspart (Insulin Aspart 100 Units/Ml 3 Ml Pen) 0 units SC ACHS [facility] Stop: 11/08/20 20:59 Last Admin: 10/11/20 17:04 Dose: 21 units Documented by: Insulin Glargine (Insulin Glargine Solostar 100 Units/Ml 3 Ml Pen) 0 units SC BID [facility]; Protocol Stop: 11/10/20 08:59 Insulin Human NPH (Insulin Human Nph) 40 units SC DAILY@0800 [facility] Stop: 11/10/20 07:59 Miscellaneous (Carbohydrates For Hypoglycemia ) 15 - 30 gm PO UD PRN PRN Reason: Hypoglycemia Treatment Stop: 11/08/20 20:29 Miscellaneous Information (Pharmacy Glycemic Mgmt Consult) 1 ea N/A UD PRN PRN Reason: Consult Stop: 11/08/20 20:14 Ondansetron HCl (Ondansetron Inj 2 Mg/Ml 2 Ml Vial) 4 mg IV Q6H PRN PRN Reason: Nausea Stop: 11/08/20 20:14 Home Medications Medication Instructions Recorded Confirmed allopurinol 300 mg PO QAM #0 tab 05/18/16 10/09/20 cinnamon bark [Cinnamon] 500 mg PO QAM #0 05/18/16 10/09/20 cyanocobalamin (vitamin B-12) 1,000 mcg PO QAM #0 tab 05/18/16 10/09/20 [Vitamin B-12] glucosamine sulfate [Glucosamine] 500 mg PO QAM #0 tab 05/18/16 10/09/20 metformin 1,000 mg PO BID #0 tab 05/18/16 10/09/20 omega-3 fatty acids [Fish Oil 1,000 mg PO QAM #0 cap 05/18/16 10/09/20 Concentrate] grape seed extract [Grape Seed] 50 mg PO QAM #0 07/08/16 10/09/20 zinc 50 mg PO QAM #0 07/08/16 10/09/20 calcium carbonate [Calcium 600] 600 mg PO QAM #0 03/17/18 10/09/20 cholecalciferol (vitamin D3) 25 mcg PO QAM 90 Days #90 tab 03/17/18 10/09/20 [Vitamin D3] garlic 2,000 mg PO QAM #0 03/17/18 10/09/20 ketoconazole 1 ea TOPICAL DIRECTED 30 Days 03/17/18 10/09/20 #120 ml acetaminophen [Tylenol Extra 500 mg PO Q8H PRN 10/09/20 10/09/20 Strength] aspirin 81 mg PO QAM 10/09/20 10/09/20 atenolol-chlorthalidone 1 tab PO QAM 10/09/20 10/09/20 atorvastatin 40 mg PO PM 10/09/20 10/09/20 flurbiprofen 100 mg PO QAM 10/09/20 10/09/20 glimepiride 4 mg PO QAM 10/09/20 10/09/20 losartan 100 mg PO QAM 10/09/20 10/09/20 magnesium oxide 400 mg PO QAM 10/09/20 10/09/20 (1) HTN (hypertension) Hypertension type: essential hypertension Qualified Code(s): I10 - Essential (primary) hypertension
[2020-10-11] MEDS: cefTRIAXone SODIUM 2,000 MG in DEXTROSE 5% 50 ML IV SCH (21:10)
[2020-10-11] MEDS: INSULIN GLARGINE SOLOSTAR 100 UNITS/ML 3 ML PEN SC SCH (21:26)
[2020-10-12] MEDS ORDERED: ACETAMINOPHEN 500 MG TAB ONE
[2020-10-12] MEDS ORDERED: INSULIN ASPART 100 UNITS/ML 3 ML PEN SC ONE (02:00)
[2020-10-12] MEDS ORDERED: INSULIN HUMAN NPH SC SCH (08:00)
[2020-10-12] MEDS ORDERED: FUROSEMIDE 20 MG in SYRINGE 0 ML IV SCH (17:30)
[2020-10-12 17:38] LABS: BUN Creatinine Ratio 47.5 (10-20); Calcium 8.9 mg/dl (8.5-10.1); Creatinine Clr Calc Pharmacy 83.7 ml/min; Est GFR (African American) 70.9; Est GFR (Non-African American) 61.2; Potassium 3.7 mmol/L (3.5-5.1)
[2020-10-12] MEDS ORDERED: AMOXICILLIN/CLAVULANATE 875 MG TAB PO ONE (17:41)
--- NOTE | 2020-10-12 17:41 | Hospitalist Progress Note ---
Date of Service October 12, 2020 Assessment & Plan (1) Pneumonia due to COVID-19 virus: with Acute Hypoxic Respiratory Failure now on 8 L of o2 via nasal cannula not a Candidate for remdesivir in light of acute renal failur Continue dexamethasone day number 2 out of 10 Patient agreeable for convalescent plasma, day 1 out of 2 Continue Lovenox subcutaneous twice daily for DVT prophylaxis Pulmonary service consulted Continue to monitor closely 10/12/2020 Now down to 5-6 L of O2 via nasal cannula Continue dexamethasone day 4 out of 10 1 unit convalescent plasma transfusion last night, another unit ordered withLasix 20 mg IV Continue Lovenox DVT phylaxis Possible component of bacterial pneumonia Patient has elevated procalcitonin Check for sputum culture Nasal MRSA negative Continue ceftriaxone plus doxycycline Bacteremia-Staph lugdunensis Blood culture 1 out of 2 bottle positive Negative for MRSA nasal swab and blood PCR No signs of sepsis Augmentin added to #1 (2) Hypoxia: Wean off oxygen as able (3) Acute kidney injury: Suspect in part related to dehydration from lack of oral intake - received 1 L IVF bolus in ED. Receiving second liter at 125 ml/hr. -Creatinine improved from 2.2-1.9--> 1.4--> 1.2 -Gentle IV fluids was given - Holding chlorthalidone (4) Diabetes mellitus type II, controlled: Pharmacy consult for glycemic management in view of insulin requirements and addition of steroids - Diabetic diet - Accuchecks - Holding home Metformin (5) HTN (hypertension): BP elevated - Continue home atenolol with holds. - Add prn hydralazine for SBP > 160 - Amlodipine 10 mg p.o. daily added -Restart losartan 100 mg p.o. daily Hold chlorthalidone (6) TAD on CPAP: Continue CPAP QHS per protocol. (7) Dyslipidemia: Holding statin for now DVT Prophylaxis Lovenox SC Disposition pending lives at home with family Admission and Anticipated Discharge Date Admission Date: October 09, 2020 Subjective Follow-up for acute respiratory failure, with hypoxia, COVID-19 pneumonia Seen resting in bed, comfortable, sleeping but easily awakened, BiPAP in use Patient is not in distress Good spirits States he continues to feel improved Prior to BiPAP was on 6 L of oxygen mask States breathing is improving, less cough, less sputum, no chest pain No abdominal pain, nausea vomiting, chills, diarrhea No other symptoms Review of Systems Review of Systems: All systems reviewed & are unremarkable except as noted in Subjective Physical Exam Physical Exam: General- oriented x 3, not in distress, speaks in sentences with no effort or accessory muscle use Eyes- anicteric Neck- no JVD Lungs-crackles at the base, no wheezing, good air entry bilaterally Heart- normal rate, regular rhythm; no murmurs Abdomen- normal bowel sounds, nondistended, soft, nontender Extremities- no pretibial edema, no calf tenderness Neuro- alert, oriented x 3; no gross focal neurologic deficits Skin- warm & dry Results & Data Results & Data ([facility]) Laboratory Results Laboratory Results - last 24 hr 10/10/20 10/11/20 10/12/20 16:30 20:34 03:41 POC Glucose 189 H 155 H Blood Type B Negative Antibody Screen NEGATIVE 10/12/20 10/12/20 10/12/20 12:15 16:47 16:48 POC Glucose 225 H 312 H* 296 H Blood Type Antibody Screen (1) HTN (hypertension) Hypertension type: essential hypertension Qualified Code(s): I10 - Essential (primary) hypertension
[2020-10-12] MEDS: INSULIN ASPART 100 UNITS/ML 3 ML PEN SC SCH ×2 (17:49→22:15)
[2020-10-12] MEDS: ENOXAPARIN 80 MG/0.8 ML SYR SQ SCH (21:48)
[2020-10-12] MEDS: guaiFENesin 600 MG TABCR PO SCH (21:50)
[2020-10-12] MEDS: cefTRIAXone SODIUM 2,000 MG in DEXTROSE 5% 50 ML IV SCH (21:51)
[2020-10-12] MEDS: LOSARTAN POTASSIUM 50 MG TAB PO SCH (21:59)
[2020-10-12] MEDS: DOXYCYCLINE HYCLATE 100 MG in DEXTROSE 5% 100 ML IV SCH (22:02)
[2020-10-12] MEDS: INSULIN GLARGINE SOLOSTAR 100 UNITS/ML 3 ML PEN SC SCH (22:15)
[2020-10-13] MEDS ORDERED: INSULIN ASPART 100 UNITS/ML 3 ML PEN SC SCH (02:00)
[2020-10-13] MEDS: hydrALAZINE HCL 20 MG/ML VIAL IV PRN (04:31)
[2020-10-13 06:58] LABS: BUN Creatinine Ratio 44.5 (10-20); Calcium 9.2 mg/dl (8.5-10.1); Creatinine Clr Calc Pharmacy 98.5 ml/min; Est GFR (African American) 86.4; Est GFR (Non-African American) 74.5; Potassium 3.5 mmol/L (3.5-5.1)
[2020-10-13] MEDS: dexAMETHasone 6 MG in SYRINGE 0 ML IV SCH ×2 (07:03→09:57)
[2020-10-13] MEDS: INSULIN GLARGINE SOLOSTAR 100 UNITS/ML 3 ML PEN SC SCH ×2 (07:03→20:43)
[2020-10-13] MEDS: ENOXAPARIN 80 MG/0.8 ML SYR SQ SCH ×3 (07:03→20:23)
[2020-10-13] MEDS: PANTOprazole 40 MG in SYRINGE 0 ML IV SCH ×2 (07:04→12:18)
[2020-10-13] MEDS: DOXYCYCLINE HYCLATE 100 MG in DEXTROSE 5% 100 ML IV SCH ×4 (07:04→22:04)
[2020-10-13] MEDS: guaiFENesin 600 MG TABCR PO SCH ×3 (07:04→20:23)
[2020-10-13] MEDS: ATENOLOL 25 MG TABLET PO SCH ×2 (07:04→09:19)
[2020-10-13] MEDS: amLODIPine BESYLATE 5 MG TAB PO SCH ×2 (07:04→09:20)
[2020-10-13] MEDS: INSULIN ASPART 100 UNITS/ML 3 ML PEN SC SCH ×6 (07:05→20:43)
[2020-10-13] MEDS ORDERED: INSULIN HUMAN NPH SC SCH ×2 (08:00→17:30)
[2020-10-13] MEDS ORDERED: INSULIN GLARGINE SOLOSTAR 100 UNITS/ML 3 ML PEN SC SCH (09:00)
[2020-10-13] MEDS: LOSARTAN POTASSIUM 50 MG TAB PO SCH (09:19)
[2020-10-13 10:06] LABS: C Reactive Protein 2.97 mg/dl (0-0.29); Ferritin 384.4 ng/ml (8-388)
--- NOTE | 2020-10-13 10:24 | Pharmacy Report ---
Pharmacy Glycemic Short Note 2 - Date of Service October 13, 2020 - Glycemic Short BSG Results (Last 24 hours): 10/12/20 10/12/20 10/12/20 05:39 07:52 12:15 Glucose 164 H POC Glucose 160 H 225 H 10/12/20 10/12/20 10/12/20 16:47 16:48 21:43 Glucose POC Glucose 312 H* 296 H 269 H 10/13/20 10/13/20 05:46 07:52 Glucose 144 H POC Glucose 148 H OUTPATIENT ANTIDIABETIC REGIMEN: * Glimepiride 4 mg PO daily * Metformin 1000 mg PO BIDM * HbA1c: 11% (10/10/20) ASSESSMENT: 10/13: * BSGs elevated yesterday at 160, 225, 296, and 269 mg/dL * Patient received 181 units of insulin (40 units of NPH, 65 units of basal, and 76 units of prandial/correctional) * Fasting BSG of 148 mg/dL this morning (slightly improved) * Increase NPH to 45 units today * Tighten Novolog based on persistently elevated BSGs yesterday * Lantus 30-35 units SC BID * Lunch BSG of 255 mg/dL - will add on evening dose of NPH to be given based on scale * CYDNEY on admission now resolved (SCr 2.23 -> 1.07 mg/dL) 10/10: * 60 year old admitted with COVID pneumonia, type 2 diabetic managed only on oral agents at home * A1c of 11% on admission indicating poor outpatient glucose control. Received total of 114 units of insulin yesterday, of which 50 were basal insulin * Plan to start NPH this AM to be given with dexamethasone. Utilizing 0.3 unit/kg dosing adjusted body weight / went with lower dosing as large basal dose from last evening still on board PLAN FOR INPATIENT GLYCEMIC CONTROL: * Hold outpatient oral diabetes medications * Basal insulin - increase NPH and Lantus * Lantus 30-35 units SC BID (see EHR for details) * NPH 45 units SC daily to cover IV dexamethasone * NPH 0-15 units SC w/ dinner (see EHR for details) * Bolus insulin - tighten * NovoLog per scale ACHS or Q6hrs while NPO * Goal Range: Low 110 mg/dL - High 140 mg/dL * Correction Factor: 10 mg/dL/unit * Nutritional / Prandial insulin per carb ratio of 1 unit per 2.5 grams CHO consumed PLAN FOR DISCHARGE: * HbA1c of 11% demonstrates very poor outpatient glycemic control * Patient would likely benefit from addition of insulin at discharge (ideally basal/bolus, but reasonable to start with once daily basal) * Unfortunately, all inpatient data so far is with IV dexamethasone on board, so it is difficult to determine insulin needs under normal conditions * In the very least, it would be appropriate to initiate once daily Lantus 25 units (~0.2 unit/kg) SC daily * Continue outpatient PO medications now that renal function is back to baseline * Will continue to follow inpatient insulin needs and adjust recs accordingly
[2020-10-13] MEDS ORDERED: SODIUM CHLORIDE 0.9% 10ML FLUSH IV SCH (12:00)
[2020-10-13] MEDS ORDERED: REMDESIVIR 200 MG in SODIUM CHLORIDE 0.9% 210 ML IV ONE (12:00)
[2020-10-13] MEDS: AMOXICILLIN/CLAVULANATE 875 MG TAB PO SCH ×2 (12:16→17:29)
--- NOTE | 2020-10-13 19:52 | Hospitalist Progress Note ---
Date of Service October 13, 2020 Assessment & Plan (1) Pneumonia due to COVID-19 virus: with Acute Hypoxic Respiratory Failure With possible bacterial pneumonia component Admitted with 8 L of o2 via nasal cannula not a Candidate for remdesivir in light of acute renal failure Pulmonary service consulted Improving, now down to 5-6 L of O2 via nasal cannula Continue dexamethasone day 5 out of 10 Patient to receive second unit of convalescent plasma this evening Continue Lovenox DVT phylaxis Continue doxycycline, Augmentin Staph lugdunensis bacteremia Positive 1 out of 2 bottles Repeat blood cultures pending Patient has elevated procalcitonin Start daptomycin IV Echocardiogram to rule out infective endocarditis ID consulted (2) Hypoxia: Wean off oxygen as able (3) Acute kidney injury: Suspect in part related to dehydration from lack of oral intake - received 1 L IVF bolus in ED. Receiving second liter at 125 ml/hr. -Creatinine improved from 2.2-1.9--> 1.4--> 1.0 -Gentle IV fluids was given - Holding chlorthalidone (4) Diabetes mellitus type II, controlled: Pharmacy consult for glycemic management in view of insulin requirements and addition of steroids - Diabetic diet - Accuchecks - Holding home Metformin (5) HTN (hypertension): BP elevated - Continue home atenolol with holds. - Add prn hydralazine for SBP > 160 - Amlodipine 10 mg p.o. daily added - Restarted losartan 100 mg p.o. daily Hold chlorthalidone (6) TAD on CPAP: Continue CPAP QHS per protocol. (7) Dyslipidemia: Holding statin for now DVT Prophylaxis Lovenox SC Disposition pending lives at home with family Admission and Anticipated Discharge Date Admission Date: October 09, 2020 Subjective Follow-up for COVID-19 pneumonia, acute hypoxic respiratory failure, staph lugdunensis bacteremia, etc. Seen resting in bed, comfortable, on 6 L of oxygen mask Oriented x3, answers all questions appropriately Not in distress States he feels about the same as yesterday No active shortness of breath while on oxygen mask Denies chest pain, fevers or chills, abdominal pain, nausea, diarrhea No other symptoms Review of Systems Review of Systems: All systems reviewed & are unremarkable except as noted in Subjective Physical Exam Physical Exam: General- oriented x 3, not in distress, speaks in sentences with no effort or accessory muscle use Eyes- anicteric Neck- no JVD Lungs-mild crackles at the bases, good air entry bilaterally, no wheezing Heart- normal rate, regular rhythm; no murmurs Abdomen- normal bowel sounds, nondistended, soft, nontender Extremities- no pretibial edema, no calf tenderness Neuro- alert, oriented x 3; no gross focal neurologic deficits Skin- warm & dry Results & Data Results & Data ([facility]) Vital Signs (Past 12 Hours) Vital Signs Temp Pulse Pulse BP Pulse Ox 10/13/20 16:00 63 10/13/20 15:29 36.6 C 60 136/68 92 10/13/20 12:18 36.6 C 75 109/66 95 10/13/20 09:00 36.6 C 76 109/66 95 10/13/20 08:00 48 L Laboratory Results Laboratory Results - last 24 hr 10/10/20 10/12/20 10/13/20 16:30 21:43 05:45 ESR 78 H Sodium Potassium Chloride Carbon Dioxide Anion Gap BUN Creatinine Est Cr Clr Drug Dosing Est GFR ( Amer) Est GFR (Non-Af Amer) BUN/Creatinine Ratio Glucose POC Glucose 269 H Calcium Ferritin C-Reactive Protein Blood Type B Negative Antibody Screen NEGATIVE 10/13/20 10/13/20 10/13/20 05:45 05:46 07:52 ESR Sodium 143 Potassium 3.5 Chloride 108 H Carbon Dioxide 26 Anion Gap 9.0 BUN 48 H Creatinine 1.07 Est Cr Clr Drug Dosing 98.5 Est GFR ( Amer) 86.4 Est GFR (Non-Af Amer) 74.5 BUN/Creatinine Ratio 44.5 H Glucose 144 H POC Glucose 148 H Calcium 9.2 Ferritin 384.4 C-Reactive Protein 2.97 H Blood Type Antibody Screen 10/13/20 10/13/20 11:50 16:47 ESR Sodium Potassium Chloride Carbon Dioxide Anion Gap BUN Creatinine Est Cr Clr Drug Dosing Est GFR ( Amer) Est GFR (Non-Af Amer) BUN/Creatinine Ratio Glucose POC Glucose 255 H 280 H Calcium Ferritin C-Reactive Protein Blood Type Antibody Screen (1) HTN (hypertension) Hypertension type: essential hypertension Qualified Code(s): I10 - Essential (primary) hypertension
[2020-10-13] MEDS ORDERED: DAPTOmycin 600 MG in SYRINGE 0 ML IV SCH (21:00)
[2020-10-14 06:43] LABS: Albumin Level 2.4 gm/dl (3.4-5.0); Bilirubin Direct 0.2 mg/dl (0-0.2); Calcium 9.1 mg/dl (8.5-10.1); Creatinine Clr Calc Pharmacy 101.3 ml/min; Est GFR (African American) 89.4; Est GFR (Non-African American) 77.1; Potassium 3.6 mmol/L (3.5-5.1)
[2020-10-14 06:46] LABS: Bilirubin,Total 0.5 mg/dl (0.2-1); Total Protein 6.9 gm/dl (6.4-8.2)
[2020-10-14] MEDS ORDERED: INSULIN HUMAN NPH SC SCH (08:00)
[2020-10-14] MEDS: guaiFENesin 600 MG TABCR PO SCH ×2 (08:52→21:01)
[2020-10-14] MEDS: ENOXAPARIN 80 MG/0.8 ML SYR SQ SCH ×2 (08:52→21:00)
[2020-10-14] MEDS: LOSARTAN POTASSIUM 50 MG TAB PO SCH (08:52)
[2020-10-14] MEDS: dexAMETHasone 6 MG in SYRINGE 0 ML IV SCH (08:53)
[2020-10-14] MEDS: ATENOLOL 25 MG TABLET PO SCH (08:54)
[2020-10-14] MEDS: amLODIPine BESYLATE 5 MG TAB PO SCH (08:54)
[2020-10-14] MEDS: AMOXICILLIN/CLAVULANATE 875 MG TAB PO SCH (08:55)
[2020-10-14] MEDS: INSULIN ASPART 100 UNITS/ML 3 ML PEN SC SCH ×4 (09:00→21:56)
[2020-10-14] MEDS: DOXYCYCLINE HYCLATE 100 MG in DEXTROSE 5% 100 ML IV SCH (09:20)
[2020-10-14] MEDS: INSULIN GLARGINE SOLOSTAR 100 UNITS/ML 3 ML PEN SC SCH ×2 (09:43→21:56)
--- NOTE | 2020-10-14 11:30 | Pharmacy Report ---
Glycemic Control Progress Note - Date of Service October 14, 2020 - Scope Glycemic Pharmacist consulted for glycemic control to write orders per [facility] inpatient glycemic control protocol. - Objective Accuchecks BSG(last 24 hours):: 10/13/20 10/13/20 10/13/20 11:50 16:47 20:33 Glucose POC Glucose 255 H 280 H 224 H 10/14/20 10/14/20 10/14/20 06:04 07:53 11:00 Glucose 59 L POC Glucose 70 135 H HbA1c:: Hemoglobin A1c 11.0 % (4.5-5.6) H 10/10/20 07:45 - Recent Pertinent Medications The patient is currently receiving: * Basal insulin: Lantus 30-35 units every 12 hours + NPH 45 units in the morning 0-15 units at dinner * Correctional Insulin: Novolog Correction per scale ACHS Goal Range: Low 110 mg/dL - High 140 mg/dL Correction Factor: 10 mg/dL/unit * Prandial insulin: Per carb ratio of 1 unit per 2.5 grams CHO consumed - Outpatient Anti-Diabetic Meds Amaryl 4 mg daily metformin 1 gm BID - Assessment & Plan ASSESSMENT: * See progress note from 10/10/20 for more background info, in short: * Pt receiving SQ basal bolus insulin regimen for hyperglycemia secondary to baseline DM (outpatient regimen on hold),stress/infection (currently on doxycycline, Augmentin, and daptomycin), and dexamethasone 6 mg IV daily (last dose 10/18/20) * Patient is currently receiving an average of 237 units of insulin per day * 130 units of basal insulin * 107 units of prandial/correctional insulin * BSGs ranging 148 - 280 mg/dl over the past 24hrs * Changes needed to insulin regimen: * AM Fasting BSG = 70 mg/dl. This is slightly below goal range for patient based on inpatient targets and co-morbidities. Suspect that this was due to extra 15 units of NPH given at dinnertime. Will increase morning NPH by 10 units. Continue Lantus 60-70 units/day which appears to stabilize patient. * Post-prandial BSGs are elevated. Did increase NPH by 10 units. Will hold off on tightening CF/CR for now. * Total daily dose = ~250 units. Increase insulin appropriately. PLAN FOR INPATIENT GLYCEMIC CONTROL: * Continuing Lantus 30-35 units SQ BID + INCREASING NPH to 55 units daily * Continuing correction factor of 10 mg/dl/unit * Continuing carb ratio of 1 unit per 2.5 grams CHO consumed * Continuing goal range of Low 110 mg/dL - High 140 mg/dL * Please note that the plan above was derived based on current level of insulin resistance and hospital stress. These recommendations are appropriate for inpatient admission only. Plan of care upon discharge will need to be reassessed to avoid potential outpatient hypo/hyperglycemia. Thank you.
[2020-10-14] MEDS: REMDESIVIR 100 MG in SODIUM CHLORIDE 0.9% 230 ML IV SCH (11:38)
[2020-10-14] MEDS: SODIUM CHLORIDE 0.9% 10ML FLUSH IV SCH (11:42)
[2020-10-14] MEDS: PANTOprazole 40 MG in SYRINGE 0 ML IV SCH (13:27)
[2020-10-14] MEDS ORDERED: ceFAZolin 2000MG 2,000 MG/15 ML SYR IV SCH (16:45)
--- NOTE | 2020-10-14 16:54 | Hospitalist Progress Note ---
Date of Service October 14, 2020 Assessment & Plan (1) Pneumonia due to COVID-19 virus: with Acute Hypoxic Respiratory Failure With possible bacterial pneumonia component Admitted with 8 L of o2 via nasal cannula iniitially, not a Candidate for remdesivir in light of acute renal failure Pulmonary service consulted Improving, now down to 5-6 L of O2 via nasal cannula Continue dexamethasone day 6 out of 10 Remdesivir Day 2- renal and liver function good s/p 2 units Convalescent plasma Continue Lovenox DVT phylaxis now on Cefazolin IV Day #1 per ID recommendations, possible bacterial pneumonia Staph lugdunensis bacteremia Positive 1 out of 2 bottles Repeat blood cultures pending Patient has elevated procalcitonin ID consulted recommend to DC Dapto, Augmentin, Doxy and transition to Cefazolin 2g IV daily recommend repeat BC, echo--> if negative, 2 weeks IV Cefazolin 3rd BC tomorrow will discuss TTE with Cardiology service (2) Hypoxia: Wean off oxygen as able (3) Acute kidney injury: Suspect in part related to dehydration from lack of oral intake - received 1 L IVF bolus in ED. Receiving second liter at 125 ml/hr. -Creatinine improved from 2.2-1.9--> 1.4--> 1.0 -Gentle IV fluids was given - Holding chlorthalidone (4) Diabetes mellitus type II, controlled: Pharmacy consult for glycemic management in view of insulin requirements and addition of steroids - Diabetic diet - Accuchecks - Holding home Metformin (5) HTN (hypertension): BP elevated - Continue home atenolol with holds. - Add prn hydralazine for SBP > 160 - Amlodipine 10 mg p.o. daily added - Restarted losartan 100 mg p.o. daily Hold chlorthalidone (6) TAD on CPAP: Continue CPAP QHS per protocol. (7) Dyslipidemia: Holding statin for now DVT Prophylaxis Lovenox SC Disposition pending lives at home with family Admission and Anticipated Discharge Date Admission Date: October 09, 2020 Subjective ff up for COVID 19 pneumonia, hypoxic respiratory failure, bacteremia seen resting in bed, comfortable on 5 L oxymask states he continues to feel improved breathing is improving, denies cough, sputum no chest pain, leg pain no fever/chills, headache, dizziness, abdominal pain ,nausea no other symptoms Review of Systems Review of Systems: All systems reviewed & are unremarkable except as noted in Subjective Physical Exam Physical Exam: General- oriented x 3, not in distress, speaks in sentences with no effort or accessory muscle use Eyes- anicteric Neck- no JVD Lungs- clear BS bilaterally Heart- normal rate, regular rhythm; no murmurs Abdomen- normal bowel sounds, nondistended, soft, nontender Extremities- no pretibial edema, no calf tenderness Neuro- alert, oriented x 3; no gross focal neurologic deficits Skin- warm & dry Results & Data Results & Data ([facility]) Vital Signs (Past 12 Hours) Vital Signs Temp Pulse Pulse Resp BP Pulse Ox 10/14/20 15:28 63 10/14/20 11:01 36.6 C 66 21 139/74 91 10/14/20 07:55 36.4 C L 57 L 20 161/61 H 93 10/14/20 07:00 44 L (1) HTN (hypertension) Hypertension type: essential hypertension Qualified Code(s): I10 - Essential (primary) hypertension
[2020-10-14] MEDS ORDERED: ceFAZolin 1000MG 1,000 MG/7.5 ML SYR IV SCH (18:00)
[2020-10-14] MEDS: ceFAZolin 1000MG 1,000 MG/7.5 ML SYR IV SCH (18:16)
[2020-10-15] MEDS: ceFAZolin 1000MG 1,000 MG/7.5 ML SYR IV SCH ×4 (01:05→17:52)
[2020-10-15] MEDS: dexAMETHasone 6 MG in SYRINGE 0 ML IV SCH (07:44)
[2020-10-15] MEDS: ENOXAPARIN 80 MG/0.8 ML SYR SQ SCH ×2 (07:45→21:41)
[2020-10-15] MEDS: ATENOLOL 25 MG TABLET PO SCH (07:47)
[2020-10-15] MEDS: guaiFENesin 600 MG TABCR PO SCH ×2 (07:47→21:42)
[2020-10-15] MEDS: INSULIN HUMAN NPH SC SCH (07:50)
[2020-10-15] MEDS: amLODIPine BESYLATE 5 MG TAB PO SCH (07:51)
[2020-10-15] MEDS: LOSARTAN POTASSIUM 50 MG TAB PO SCH (07:51)
[2020-10-15 07:57] LABS: Albumin Level 2.5 gm/dl (3.4-5.0); Bilirubin Direct 0.2 mg/dl (0-0.2); Calcium 9.3 mg/dl (8.5-10.1); Creatinine Clr Calc Pharmacy 118.3 ml/min; Est GFR (Non-African American) 92.3; Potassium 3.8 mmol/L (3.5-5.1)
[2020-10-15 08:00] LABS: Bilirubin,Total 0.6 mg/dl (0.2-1); Total Protein 7.3 gm/dl (6.4-8.2)
[2020-10-15] MEDS: INSULIN ASPART 100 UNITS/ML 3 ML PEN SC SCH ×4 (08:24→21:42)
[2020-10-15] MEDS ORDERED: INSULIN GLARGINE SOLOSTAR 100 UNITS/ML 3 ML PEN SC SCH (09:00)
[2020-10-15] MEDS: PANTOprazole 40 MG in SYRINGE 0 ML IV SCH (11:33)
[2020-10-15] MEDS: REMDESIVIR 100 MG in SODIUM CHLORIDE 0.9% 230 ML IV SCH (11:38)
--- NOTE | 2020-10-15 11:43 | Pharmacy Report ---
Glycemic Control Progress Note - Date of Service October 15, 2020 - Scope Glycemic Pharmacist consulted for glycemic control to write orders per [facility] inpatient glycemic control protocol. - Objective Accuchecks BSG(last 24 hours):: 10/14/20 10/14/20 10/15/20 16:43 20:59 06:50 Glucose 64 L POC Glucose 244 H 226 H 10/15/20 10/15/20 10/15/20 07:34 07:38 07:56 Glucose POC Glucose 67 L* 72 84 10/15/20 11:19 Glucose POC Glucose 188 H HbA1c:: Hemoglobin A1c 11.0 % (4.5-5.6) H 10/10/20 07:45 - Recent Pertinent Medications The patient is currently receiving: * Basal insulin: Lantus 30-35 units every 12 hours * Correctional Insulin: Novolog Correction per scale ACHS Goal Range: Low 110 mg/dL - High 140 mg/dL Correction Factor: 10 mg/dL/unit * Prandial insulin: Per carb ratio of 1 unit per 2.5 grams CHO consumed - Outpatient Anti-Diabetic Meds Amaryl 4 mg daily metformin 1000 mg BID - Assessment & Plan ASSESSMENT: * See progress note from 10/10/20 for more background info, in short: * Pt receiving SQ basal bolus insulin regimen for hyperglycemia secondary to baseline DM (outpatient regimen on hold),stress/infection (currently on Ancef + Remdisivir), and dexamethasone 8 mg IV daily. * Patient is currently receiving an average of 212 units of insulin per day * 120 units of basal insulin * 92 units of prandial/correctional insulin * BSGs ranging 70 - 244 mg/dl over the past 24hrs * Changes needed to insulin regimen: * AM Fasting BSG = 72 mg/dl. This is slightly below goal range for patient based on inpatient targets and co-morbidities. Therefore Basal insulin will be reduced by 20% to 50 units/day. Increase NPH to 65 units (20%) since patient's BSGs climbed to > 200 mg/dL yesterday. * Post-prandial BSGs are elevated. Tighten. * Total daily dose = >200 units. Expect this to decrease when steroids are discontinued. PLAN FOR INPATIENT GLYCEMIC CONTROL: * Decreasing Lantus 25 units SQ BID plus INCREASE NPH to 65 units * TIGHTEN correction factor to 8 mg/dl/unit * TIGHTEN carb ratio to 1 unit per 2 grams CHO consumed * Continuing goal range of Low 110 mg/dL - High 140 mg/dL * Please note that the plan above was derived based on current level of insulin resistance and hospital stress. These recommendations are appropriate for inpatient admission only. Plan of care upon discharge will need to be reassessed to avoid potential outpatient hypo/hyperglycemia. Thank you.
[2020-10-15] MEDS: SODIUM CHLORIDE 0.9% 10ML FLUSH IV SCH (12:53)
--- NOTE | 2020-10-15 21:22 | Hospitalist Progress Note ---
Date of Service delayed entry date of service noted below October 15, 2020 Assessment & Plan (1) Pneumonia due to COVID-19 virus: with Acute Hypoxic Respiratory Failure With possible bacterial pneumonia component Admitted with 8 L of o2 via oxymask iniitially, not a Candidate for remdesivir in light of acute renal failure Pulmonary service consulted Improving, now down to 4 L of O2 via oxymask Continue dexamethasone day 7 out of 10 Remdesivir Day 3- renal and liver function good s/p 2 units Convalescent plasma Continue Lovenox DVT phylaxis now on Cefazolin IV Day #2 per ID recommendations, possible bacterial pneumonia Staph lugdunensis bacteremia Positive 1 out of 2 bottles 2nd Repeat blood cultures pending Patient has elevated procalcitonin ID consulted recommend to DC Dapto, Augmentin, Doxy and transition to Cefazolin 2g IV daily ( day 2) recommend repeat BC, echo to r/o IE--> if negative, 2 weeks IV Cefazolin 3rd BC ordered for 10/16/20 Echo not able to be performed due to Covid positive status discussed with ID Dr. Mendes, recommend: hold off on echo, perform TTE to r/o IE when patient is off isolation, in ~ 2weeks continue Cefazolin IV for a total of 2 weeks ff up repeat blood cultures 10/13, 10/16 patient prefers to be discharged home, will need US guided IV cath (2) Hypoxia: improving since admission frmo 8 to 4 l via oxymask Wean off oxygen as able (3) Acute kidney injury: Suspect in part related to dehydration from lack of oral intake - received 1 L IVF bolus in ED. Receiving second liter at 125 ml/hr. -Creatinine improved from 2.2-1.9--> 1.4--> 1.0 -Gentle IV fluids was given - Holding chlorthalidone (4) Diabetes mellitus type II, controlled: Pharmacy consult for glycemic management in view of insulin requirements and addition of steroids - Diabetic diet - Accuchecks - Holding home Metformin (5) HTN (hypertension): BP elevated - Continue home atenolol with holds. - Add prn hydralazine for SBP > 160 - Amlodipine 10 mg p.o. daily added - Restarted losartan 100 mg p.o. daily Hold chlorthalidone (6) TAD on CPAP: Continue CPAP QHS per protocol. (7) Dyslipidemia: Holding statin for now DVT Prophylaxis Lovenox SC Disposition pending lives at home with family patient prefers to be d/c home with home health will need US guided IV cath Admission and Anticipated Discharge Date Admission Date: October 09, 2020 Subjective ff up for COVID 19 pneumonia seen resting in bed, comfortable on 4 L oxymask in good spirits states he continues to feel better breathing continues to improve, no cough no fever/chills no other symptoms Review of Systems Review of Systems: All systems reviewed & are unremarkable except as noted in Subjective Physical Exam Physical Exam: General- oriented x 3, not in distress, speaks in sentences with no effort or accessory muscle use Eyes- anicteric Neck- no JVD Lungs- clear breath sounds bilaterally Heart- normal rate, regular rhythm; no murmurs Abdomen- normal bowel sounds, nondistended, soft, nontender Extremities- no pretibial edema, no calf tenderness Neuro- alert, oriented x 3; no gross focal neurologic deficits Skin- warm & dry Results & Data Results & Data ([facility]) Vital Signs (Past 12 Hours) Vital Signs Temp Pulse Pulse Resp BP BP Pulse Ox 10/15/20 17:00 62 10/15/20 16:30 36.7 C 53 L 18 151/68 H 96 10/15/20 10:46 36.6 C 49 L 16 120/55 L 93 Laboratory Results all noted and reviewed (1) HTN (hypertension) Hypertension type: essential hypertension Qualified Code(s): I10 - Essential (primary) hypertension
[2020-10-15] MEDS ORDERED: INSULIN GLARGINE SOLOSTAR 100 UNITS/ML 3 ML PEN SC ONE (22:00)
[2020-10-16] MEDS ORDERED: INSULIN ASPART 100 UNITS/ML 3 ML PEN SC SCH
[2020-10-16] MEDS ORDERED: SODIUM CHLORIDE 0.65% NA SOLN 45 ML (OCEAN) ONE (00:10)
[2020-10-16] MEDS: ceFAZolin 1000MG 1,000 MG/7.5 ML SYR IV SCH ×4 (00:24→18:51)
[2020-10-16 07:47] LABS: Albumin Level 2.3 gm/dl (3.4-5.0); BUN Creatinine Ratio 45.8 (10-20); Bilirubin Direct 0.2 mg/dl (0-0.2); Calcium 8.6 mg/dl (8.5-10.1); Creatinine Clr Calc Pharmacy 120.5 ml/min; Est GFR (Non-African American) 93.2; Potassium 3.7 mmol/L (3.5-5.1)
[2020-10-16 07:50] LABS: Bilirubin,Total 0.7 mg/dl (0.2-1); Total Protein 6.5 gm/dl (6.4-8.2)
[2020-10-16] MEDS: dexAMETHasone 6 MG in SYRINGE 0 ML IV SCH (08:05)
[2020-10-16] MEDS: amLODIPine BESYLATE 5 MG TAB PO SCH (08:06)
[2020-10-16] MEDS: guaiFENesin 600 MG TABCR PO SCH ×2 (08:06→21:28)
[2020-10-16] MEDS: LOSARTAN POTASSIUM 50 MG TAB PO SCH (08:06)
[2020-10-16] MEDS: ATENOLOL 25 MG TABLET PO SCH (08:07)
[2020-10-16] MEDS: ENOXAPARIN 80 MG/0.8 ML SYR SQ SCH ×2 (08:10→21:27)
[2020-10-16] MEDS: INSULIN ASPART 100 UNITS/ML 3 ML PEN SC SCH ×4 (08:29→22:21)
[2020-10-16] MEDS: INSULIN HUMAN NPH SC SCH (08:29)
[2020-10-16] MEDS: INSULIN GLARGINE SOLOSTAR 100 UNITS/ML 3 ML PEN SC SCH ×2 (08:30→22:22)
[2020-10-16] MEDS: PANTOprazole 40 MG in SYRINGE 0 ML IV SCH (11:58)
[2020-10-16] MEDS: REMDESIVIR 100 MG in SODIUM CHLORIDE 0.9% 230 ML IV SCH (11:59)
--- NOTE | 2020-10-16 12:14 | Pharmacy Report ---
Glycemic Control Progress Note - Date of Service October 16, 2020 - Scope Glycemic Pharmacist consulted for glycemic control to write orders per [facility] inpatient glycemic control protocol. - Objective Accuchecks BSG(last 24 hours):: 10/15/20 10/15/20 10/16/20 16:35 21:40 00:23 Glucose POC Glucose 267 H 92 72 10/16/20 10/16/20 10/16/20 06:59 07:56 11:01 Glucose 69 L POC Glucose 84 140 H HbA1c:: Hemoglobin A1c 11.0 % (4.5-5.6) H 10/10/20 07:45 - Recent Pertinent Medications The patient is currently receiving: * Basal insulin: Lantus 25 units every 12 hours * Correctional Insulin: Novolog Correction per scale ACHS Goal Range: Low 110 mg/dL - High 140 mg/dL Correction Factor: 8 mg/dL/unit * Prandial insulin: Per carb ratio of 1 unit per 2 grams CHO consumed - Outpatient Anti-Diabetic Meds Amaryl 4 mg daily metformin - Assessment & Plan ASSESSMENT: * See progress note from 10/10/20 for more background info, in short: * Pt receiving SQ basal bolus insulin regimen for hyperglycemia secondary to baseline DM (outpatient regimen on hold). Patient is COVID positive with bacteremia. He is receiving IV Ancef, Remdesivir, and dexamethasone 6 mg IV daily (last day 10/18/20) * Patient is currently receiving an average of 225 units of insulin per day * 115 units of basal insulin * 110 units of prandial/correctional insulin * BSGs ranging 67 - 267 mg/dl over the past 24hrs * Changes needed to insulin regimen: * AM Fasting BSG = 84 mg/dl. This is in goal range for patient based on inpatient targets and co-morbidities. Patient's fasting BSG is trending upwards but still significantly lower than goal range. Decrease to Lantus 20 units BID. Continue NPH 65 units. * Post-prandial BSGs were elevated yesterday but then dropped at bedtime to 92 mg/dL. Loosen CF. * Total daily dose = ~220 units. Edited insulin appropriately. PLAN FOR INPATIENT GLYCEMIC CONTROL: * DECREASING Lantus to 20 units SQ BID + Continue NPH 65 units daily * LOOSENING correction factor to 10 mg/dl/unit * Continuing carb ratio of 1 unit per 2 grams CHO consumed * Continuing goal range of Low 110 mg/dL - High 140 mg/dL * Please note that the plan above was derived based on current level of insulin resistance and hospital stress. These recommendations are appropriate for inpatient admission only. Plan of care upon discharge will need to be reassessed to avoid potential outpatient hypo/hyperglycemia. Thank you.
[2020-10-16] MEDS: SODIUM CHLORIDE 0.9% 10ML FLUSH IV SCH (13:12)
--- NOTE | 2020-10-16 19:37 | Hospitalist Progress Note ---
Date of Service October 16, 2020 Assessment & Plan (1) Pneumonia due to COVID-19 virus: with Acute Hypoxic Respiratory Failure With possible bacterial pneumonia component Admitted with 8 L of o2 via oxymask iniitially, not a Candidate for remdesivir in light of acute renal failure Pulmonary service consulted respiratory status improved to baseline , in room air now Continue dexamethasone day 8 out of 10 Remdesivir Day 4 renal and liver function good s/p 2 units Convalescent plasma Continue Lovenox DVT phylaxis now on Cefazolin IV Day #3 per ID recommendations, possible bacterial pneumonia Staph lugdunensis bacteremia Positive 1 out of 2 bottles 2nd Repeat blood cultures-no gowth Patient has elevated procalcitonin ID consulted transitioned to Cefazolin 2g IV daily ( day 3 )per ID recommendation 2 weeks IV Cefazolin for possible endocarditis 3rd BC ordered for 10/16/20 Echo not able to be performed due to Covid positive status discussed with ID Dr. Mendes, recommend: hold off on echo, perform TTE to r/o IE when patient is off isolation, in ~ 2weeks continue Cefazolin IV for a total of 2 weeks possible dc home in am with IV ancef will need USG guided IV line (2) Hypoxia: resolved in room air now (3) Acute kidney injury: resolved with iV fluid Suspect in part related to dehydration from lack of oral intake - -Creatinine improved from 2.2-1.9--> 1.4--> 1.0 -cr back to baseline - Holding chlorthalidone (4) Diabetes mellitus type II, controlled: Pharmacy consult for glycemic management in view of insulin requirements and addition of steroids - Diabetic diet - Accuchecks - Holding home Metformin (5) HTN (hypertension): BP stable - - Amlodipine 10 mg p.o. daily added - Restarted losartan 100 mg p.o. daily Hold chlorthalidone (6) TAD on CPAP: Continue CPAP QHS per protocol. (7) Dyslipidemia: Holding statin for now DVT Prophylaxis Lovenox SC Disposition discharge home tomorrow with IV abx for 2 weeks Admission and Anticipated Discharge Date Admission Date: October 09, 2020 Subjective no cough or SOB no fever or chills feels fine in room air Review of Systems Review of Systems: All systems reviewed & are unremarkable except as noted in HPI & below Constitutional: no fever, no chills and no fatigue Respiratory: no cough, no dyspnea and no dyspnea on exertion Physical Exam Constitutional: WD/WN, vitals as above Eyes: PERRL, conjunctivae normal, anicteric sclerae ENMT: external ear and nose normal, oropharynx normal Neck: trachea midline, no thyromegaly Respiratory: normal respiratory effort; no respiratory distress and no cough Auscultation: no wheezes Cardiovascular: RRR, no murmur, no edema Gastrointestinal (Abdomen): normal bowel sounds, soft, nontender, no hepatosplenomegaly Musculoskeletal: no cyanosis or clubbing, extremities motor strength 5/5 Skin: no rashes, warm and dry Neurologic: PERRL, EOMI, accommodation nl, no face palsy, no dysarthria Psychiatric: A+Ox3, euthymic affect Results & Data Results & Data ([facility]) Vital Signs (Past 12 Hours) Vital Signs Temp Pulse Pulse Resp BP BP Pulse Ox 10/16/20 16:00 52 L 10/16/20 15:49 36.8 C 65 18 108/68 92 10/16/20 11:00 10/16/20 10:55 36.7 C 64 19 121/73 89 L 10/16/20 08:52 10/16/20 08:01 36.5 C 51 L 18 158/77 H 94 10/16/20 08:00 44 L Pulse Ox Pulse Ox Pulse Ox Pulse Ox 10/16/20 16:00 10/16/20 15:49 10/16/20 11:00 92 90 82 L 10/16/20 10:55 10/16/20 08:52 90 10/16/20 08:01 10/16/20 08:00 (1) HTN (hypertension) Hypertension type: essential hypertension Qualified Code(s): I10 - Essential (primary) hypertension
[2020-10-17] MEDS ORDERED: dexAMETHasone 1 MG TAB PO SCH
[2020-10-17] MEDS: ceFAZolin 1000MG 1,000 MG/7.5 ML SYR IV SCH ×3 (00:18→11:48)
[2020-10-17] MEDS: ATENOLOL 25 MG TABLET PO SCH (08:01)
[2020-10-17] MEDS: guaiFENesin 600 MG TABCR PO SCH (08:02)
[2020-10-17] MEDS: ENOXAPARIN 80 MG/0.8 ML SYR SQ SCH (08:02)
[2020-10-17] MEDS: dexAMETHasone 6 MG in SYRINGE 0 ML IV SCH (08:02)
[2020-10-17] MEDS: amLODIPine BESYLATE 5 MG TAB PO SCH (08:02)
[2020-10-17] MEDS: LOSARTAN POTASSIUM 50 MG TAB PO SCH (08:02)
[2020-10-17] MEDS: INSULIN GLARGINE SOLOSTAR 100 UNITS/ML 3 ML PEN SC SCH (08:16)
[2020-10-17] MEDS: INSULIN ASPART 100 UNITS/ML 3 ML PEN SC SCH ×2 (08:16→12:20)
[2020-10-17] MEDS: INSULIN HUMAN NPH SC SCH (08:16)
[2020-10-17 08:37] LABS: Albumin Level 2.5 gm/dl (3.4-5.0); Bilirubin,Total 0.8 mg/dl (0.2-1); Calcium 8.9 mg/dl (8.5-10.1); Creatinine Clr Calc Pharmacy 116.9 ml/min; Est GFR (Non-African American) 92.3; Total Protein 6.8 gm/dl (6.4-8.2)
[2020-10-17 09:50] LABS: Potassium 3.6 mmol/L (3.5-5.1)
[2020-10-17 09:56] LABS: Bilirubin Direct 0.2 mg/dl (0-0.2)
[2020-10-17] MEDS: REMDESIVIR 100 MG in SODIUM CHLORIDE 0.9% 230 ML IV SCH (11:49)
--- NOTE | 2020-10-17 12:43 | Pharmacy Report ---
Pharmacy Glycemic Short Note 2 - Date of Service October 17, 2020 - Glycemic Short BSG Results (Last 24 hours): 10/16/20 10/16/20 10/17/20 16:43 20:46 07:50 Glucose 69 L POC Glucose 222 H 127 H 10/17/20 10/17/20 07:51 11:46 Glucose POC Glucose 81 155 H OUTPATIENT ANTIDIABETIC REGIMEN: * Glimepiride 4 mg PO daily * Metformin 1000 mg PO BIDM * HbA1c: 11% (10/10/20) ASSESSMENT: 10/17: * Patient received total of 234 units of insulin yesterday of which 105 units were basal (40 units of Lantus and 65 units of NPH). * Fasting BSG was 69 mg/dl this AM. Plan to reduce Lantus dose for tonight. * Patient continues to be on Dexamethasone - today is day 9 of therapy. To prevent steroid induced hyperglycemia, he has been getting 65 units of NPH in the morning with the Decadron. * BSGs has been elevated at dinner time due to the steroid but all other BSGs have been within goal. PLAN FOR INPATIENT GLYCEMIC CONTROL: * Hold outpatient oral diabetes medications * Basal insulin - continue * Lantus 20 units SQ AM, 15 units SQ HS * NPH 65 units SC QAM to cover IV dexamethasone * Bolus insulin - continue * NovoLog per scale ACHS or Q6hrs while NPO * Goal Range: Low 110 mg/dL - High 140 mg/dL * Correction Factor: 10 mg/dL/unit * Nutritional / Prandial insulin per carb ratio of 1 unit per 2 grams CHO consumed PLAN FOR DISCHARGE: * HbA1c of 11% demonstrates very poor outpatient glycemic control * Patient would likely benefit from addition of insulin at discharge (ideally basal/bolus, but reasonable to start with once daily basal) * Unfortunately, all inpatient data so far is with IV dexamethasone on board, so it is difficult to determine insulin needs under normal conditions * In the very least, it would be appropriate to initiate once daily Basaglar 25 units (~0.2 unit/kg) SC daily. * Patient has to complete one more day of Dexamethasone therapy. Discussed with Dr. Veloz. * Recommend Basaglar 40 units one dose tomorrow morning with Dexamethasone along with the Metformin and Amaryl oral meds. * Decrease dose to Basaglar 25 units once daily in the morning the following day. * Recommend BSG checks at least twice daily and close follow up with outpatient provider.
[2020-10-17] MEDS ORDERED: amLODIPine BESYLATE 5 MG TAB PO SCH (13:00)
[2020-10-17] MEDS: SODIUM CHLORIDE 0.9% 10ML FLUSH IV SCH (13:06)
[2020-10-17] MEDS ORDERED: ATENOLOL 25 MG TABLET PO SCH (13:15)
--- NOTE | 2020-10-17 13:59 | Hospitalist Progress Note ---
Date of Service October 17, 2020 Assessment & Plan (1) Pneumonia due to COVID-19 virus: with Acute Hypoxic Respiratory Failure-respiratory status improved With possible bacterial pneumonia component Admitted with hypoxia requiring 8 L of o2 via oximask respiratory status improved markedly in room air now , 2 step exercise done , s pt requires 2 L 02 via nasal canula on ambulation arrangements made for home 02 , USg guided IV site placed , home IV abx arranged on dexamethasone day 9 out of 10/pt will be discharged home with one more day of PO Dexamethasone Remdesivir Day 03/12 renal and liver function remains normal s/p 2 units Convalescent plasma Staph lugdunensis bacteremia Positive 1 out of 2 bottles 2nd Repeat blood cultures-no growth Patient has elevated procalcitonin ID consulted-appreciate input transitioned to IV Cefazolin Per ID recommendation discharged home today 2 weeks IV Cefazolin for possible endocarditis blood cultures : no growth Echo not able to be performed due to Covid positive status discussed with ID Dr. Mendes, recommend: hold off on echo, perform TTE to r/o IE when patient is off isolation, in ~ 2weeks continue Cefazolin IV for a total of 2 weeks Discharged home today with IV ancef USG guided IV line placed , arrangements made for home IV tx Type 2 DM -poorly controlled : HB a1c 11 was on PO meds : Metformin /Glimepiride appreciate input from Pharmacy for glycemic management required large dose of insulin due to steroid induced hyperglycemia given HB A1c > 9 , pt will be discharged on basal Lantus script given for Insulin Basaglar 25 U in AM ( extra dose tomorrow for the last dose of Dexamethasone in am ) clinical systems educator input appreciated given instructions for home blood glucose monitoring will need to be followed at Diabetic clinic (2) Hypoxia: due to covid 19 pneumonia resolved discharged home with 2 L o2 while ambulation (3) Acute kidney injury: resolved with iV fluid Suspect in part related to dehydration from lack of oral intake - -Creatinine improved from 2.2-1.9--> 1.4--> 1.0 -cr back to baseline -chlorthalidone d/becky (4) HTN (hypertension): BP stable - - Amlodipine 10 mg p.o. daily added - Restarted losartan dose lowered to 50 mg daily for borderline hypotension d/c chlorthalidone (5) TAD on CPAP: Continue CPAP QHS per protocol. (6) Dyslipidemia: on statin DVT Prophylaxis Lovenox SC Disposition stable to be discharged home today Admission and Anticipated Discharge Date Admission Date: October 09, 2020 Subjective continues to do well no cough no fever or chills pt feels like his baseline stable to be discharged home today Review of Systems Review of Systems: All systems reviewed & are unremarkable except as noted in HPI & below Constitutional: no fever, no chills and no fatigue Neurologic: no dizziness Physical Exam Constitutional: WD/WN, vitals as above Eyes: PERRL, conjunctivae normal, anicteric sclerae ENMT: external ear and nose normal, oropharynx normal Neck: trachea midline, no thyromegaly Respiratory: normal respiratory effort; no respiratory distress and no cough Auscultation: no wheezes Cardiovascular: RRR, no murmur, no edema Gastrointestinal (Abdomen): normal bowel sounds, soft, nontender, no hepatosplenomegaly Musculoskeletal: no cyanosis or clubbing, extremities motor strength 5/5 Skin: no rashes, warm and dry Neurologic: PERRL, EOMI, accommodation nl, no face palsy, no dysarthria Psychiatric: A+Ox3, euthymic affect Results & Data Results & Data ([facility]) Vital Signs (Past 12 Hours) Vital Signs Temp Pulse Pulse Pulse Pulse Pulse Pulse 10/17/20 12:24 36.5 C 64 66 10/17/20 10:28 71 74 57 L 54 L 10/17/20 08:00 10/17/20 07:53 36.5 C 64 10/17/20 03:57 36.5 C 61 Resp Resp Resp Resp Resp BP BP 10/17/20 12:24 22 136/63 137/71 10/17/20 10:28 18 20 18 18 10/17/20 08:00 10/17/20 07:53 136/63 10/17/20 03:57 22 113/71 Pulse Ox Pulse Ox Pulse Ox Pulse Ox Pulse Ox Pulse Ox 10/17/20 12:24 92 10/17/20 10:28 90 87 L 91 93 10/17/20 08:00 91 10/17/20 07:53 88 L 10/17/20 03:57 92 (1) HTN (hypertension) Hypertension type: essential hypertension Qualified Code(s): I10 - Essential (primary) hypertension
--- NOTE | 2020-10-17 15:40 | Discharge Summary ---
Date of Service October 17, 2020 Admission HPI Per Admitting Provider This is 60 y/o male with a history of insulin-requiring diabetes, obesity, severe TAD on CPAP, HTN, dyslipidemia, and psoriatic arthropathy who presented to the ED today with cough and shortness of breath after he was found to be hypoxic at a COVID testing site. Pt reports that he was around a family member with COVID this past weekend. By Wednesday evening (three nights ago), he had developed a cough and loss of appetite. Cough was mostly non-productive but he is now bringing up sputum at times. Over the past three days he has developed a loss of taste and progressive shortness of breath, fatigue and myalgias. He reports that he has had minimal oral intake over the past three day as "everything tastes like intake man fluid." He had diarrhea for a day initially but this has resolved. He has noted a dry mouth. Denies chest pain, palpitations, N/V, HOBBS or dizziness. Shortness of breath is worse with exertion or talking for extended periods. He has been using Aleve for the aches and pains with only pa rtial relief. Denies fevers or chills. His also tested positive for COVID in the ED today but was discharged home. Principal Diagnosis COVID 19 PNEUMONIA STAPH LUGDUNENSIS BACTEREMIA POORLY CONTROLLED DIABETES -STARTED ON INSULIN Discharge Exam Constitutional WD/WN, vitals as above Eyes PERRL, conjunctivae normal, anicteric sclerae ENMT external ear and nose normal, oropharynx normal Neck trachea midline, no thyromegaly Respiratory normal respiratory effort; no respiratory distress and no cough Auscultation: no wheezes Cardiovascular RRR, no murmur, no edema Gastrointestinal (Abdomen) normal bowel sounds, soft, nontender, no hepatosplenomegaly Musculoskeletal no cyanosis or clubbing, extremities motor strength 5/5 Skin no rashes, warm and dry Neurologic PERRL, EOMI, accommodation nl, no face palsy, no dysarthria Psychiatric A+Ox3, euthymic affect Discharge Data Allergies Allergy/AdvReac Type Severity Reaction Status Date / Time No Known Allergies Allergy Verified 10/09/20 15:01 Consultations 10/09/20 15:42 ED Decision to Admit Stat 10/10/20 09:23 Consult Pulmonology Routine 10/13/20 19:40 Consult Infectious Diseases Routine Ordered Studies 10/09/20 16:27 US venous doppler LE BI Routine Diabetes Follow up Diabetes Follow-up Needed for HgbA1c >9% Hospital Course (1) Pneumonia due to COVID-19 virus: with Acute Hypoxic Respiratory Failure-respiratory status improved With possible bacterial pneumonia component Admitted with hypoxia requiring 8 L of o2 via oximask respiratory status improved markedly in room air now , 2 step exercise done , s pt requires 2 L 02 via nasal canula on ambulation arrangements made for home 02 , USg guided IV site placed , home IV abx arranged on dexamethasone day 9 out of 10/pt will be discharged home with one more day of PO Dexamethasone Remdesivir Day 03/12 renal and liver function remains normal s/p 2 units Convalescent plasma Staph lugdunensis bacteremia Positive 1 out of 2 bottles 2nd Repeat blood cultures-no growth Patient has elevated procalcitonin ID consulted-appreciate input transitioned to IV Cefazolin Per ID recommendation discharged home today 2 weeks IV Cefazolin for possible endocarditis blood cultures : no growth Echo not able to be performed due to Covid positive status discussed with ID Dr. Mendes, recommend: hold off on echo, perform TTE to r/o IE when patient is off isolation, in ~ 2weeks continue Cefazolin IV for a total of 2 weeks Discharged home today with IV ancef USG guided IV line placed , arrangements made for home IV tx Type 2 DM -poorly controlled : HB a1c 11 was on PO meds : Metformin /Glimepiride appreciate input from Pharmacy for glycemic management required large dose of insulin due to steroid induced hyperglycemia given HB A1c > 9 , pt will be discharged on basal Lantus script given for Insulin Basaglar 25 U in AM ( extra dose tomorrow for the last dose of Dexamethasone in am ) hospice educator input appreciated given instructions for home blood glucose monitoring will need to be followed at Diabetic clinic (2) Hypoxia: due to covid 19 pneumonia resolved discharged home with 2 L o2 while ambulation (3) Acute kidney injury: resolved with iV fluid Suspect in part related to dehydration from lack of oral intake - -Creatinine improved from 2.2-1.9--> 1.4--> 1.0 -cr back to baseline -chlorthalidone d/becky (4) HTN (hypertension): BP stable - - Amlodipine 10 mg p.o. daily added - Restarted losartan dose lowered to 50 mg daily for borderline hypotension d/c chlorthalidone (5) TAD on CPAP: Continue CPAP QHS per protocol. (6) Dyslipidemia: on statin DVT Prophylaxis Lovenox SC Disposition stable to be discharged home today Total Time Total Time Spent Total Time Spent (In Minutes): 40 mins Total Time Includes: Discharge Planning and Medication Reconciliation Discharge Plan Discharge Items Patient Disposition: Home - Home Health Services Reason For Visit: COVID PNEUMONIA Discharge Diagnosis: COVID 19 PNEUMONIA STAPH LUGDUNENSIS BACTEREMIA POORLY CONTROLLED DIABETES -STARTED ON INSULIN Activity: Resume your previous activity Non-emergency contact: Primary Care Provider Call non-emergency contact if: you have any medication questions Follow-up/Referrals: Js Shirley MD [Physician] - (follow up for echo in 2 weeks ) Soren Nicholson MD [Primary Care Provider] - (HOSPITAL FOLLOW UP IN A WEEK /needs referral for Echo in 2 weeks ) Diet: Carb Consistent or DM2 and Heart Healthy Addtl Attending Provider Instructions: hospital follow up in a week with family Physician DIABETES MANAGEMENT : HbA1c of 11% demonstrates high blood sugar 269 daily in past 3 months -high risk for kidney failure , vision loss, heart attack , stroke you are discharged on Long acting insulin/Basaglar 25 units in morning please check blood sugar twice daily ( before breakfast and before dinner ) please keep log and bring to next hospital visit : goal blood sugar: Fasting /before breakfast 90-140 /bedtime 110-150 please let your family physician know if your blood sugar is persistently elev ated above 180 or low below 80 - your insulin dose will need to be adjusted you have one more day of steroid /Dexamethasone therapy. Take Basaglar 40 units one dose tomorrow Wednesday10/18/20 morning with Dexamethasone along with the Metformin and Amaryl/glimepiride Decrease dose to Basaglar 25 units once daily in the morning the following day Wednesday: 10/19/20 you will benefit with referral to [facility] /Diabetic clinic in 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 You should restrict activities outside your home, except for getting medical care. Do not go to work, school, or public areas. Avoid using public transportation, ride-sharing, or taxis. Separate yourself from other people and animals in your home People: As much as possible, you should stay in a specific room and away from other people in your home. Also, you should use a separate bathroom, if available. Animals: You should restrict contact with pets and other animals while you are sick with COVID-19, just like you would around other people. Although there have not been reports of pets or other animals becoming sick with COVID-19, it is still recommended that people sick with COVID-19 limit contact with animals until more information is known about the virus. When possible, have another member of your household care for your animals while you are sick. If you are sick with COVID-19, avoid contact with your pet, including petting, snuggling, being kissed or licked, and sharing food. If you must care for your pet or be around animals while you are sick, wash your hands before and after you interact with pets and wear a face mask. Call ahead before visiting your doctor If you have a medical appointment, call the healthcare provider and tell them that you have or may have COVID-19. This will help the healthcare providers office take steps to keep other people from getting infected or exposed. Wear a face mask You should wear a face mask when you are around other people (e.g., sharing a room or vehicle) or pets and before you enter a healthcare providers office. If you are not able to wear a face mask (for example, because it causes trouble breathing), then people who live with you should not stay in the same room with you, or they should wear a face mask if they enter your room. Cover your coughs and sneezes Cover your mouth and nose with a tissue when you cough or sneeze. Throw used tissues in a lined trash can. Immediately wash your hands with soap and water for at least 20 seconds or, if soap and water are not available, clean your hands with an alcohol-based hand ocean biologist that contains at least 60% alcohol. Clean your hands often Wash your hands often with soap and water for at least 20 seconds, especially after blowing your nose, coughing, or sneezing; going to the bathroom; and before eating or preparing food. If soap and water are not readily available, use an alcohol-based hand ocean biologist with at least 60% alcohol, covering all s urfaces of your hands and rubbing them together until they feel dry. Soap and water are the best option if hands are visibly dirty. Avoid touching your eyes, nose, and mouth with unwashed hands. Avoid sharing personal household items You should not share dishes, drinking glasses, cups, eating utensils, towels, or bedding with other people or pets in your home. After using these items, they should be washed thoroughly with soap and water. Clean all high-touch surfaces everyday High touch surfaces include counters, tabletops, doorknobs, bathroom fixtures, toilets, phones, keyboards, tablets, and bedside tables. Also, clean any surfaces that may have blood, stool, or body fluids on them. Use a household cleaning spray or wipe, according to the label instructions. Labels contain instructions for safe and effective use of the cleaning product including precautions you should take when applying the product, such as wearing gloves and making sure you have good ventilation during use of the product. Monitor your symptoms Seek prompt medical attention if your illness is worsening (e.g., difficulty breathing).Beforeseeking care, call your healthcare provider and tell them that you have, or are being evaluated for, COVID-19. Put on a face mask before you enter the facility. These steps will help the healthcare providers office to keep other people in the office or waiting room from getting infected or exposed. Ask your healthcare provider to call the local or [facility] health depart ment. Persons who are placed under active monitoring or facilitated self- monitoring should follow instructions provided by their local health department or occupational health professionals, as appropriate. When working with your local health department check their available hours. If you have a medical emergency and need to call 911, notify the dispatch personnel that you have, or are being evaluated for COVID-19. If possible, put on a face mask before emergency medical services arrive. Discontinuing home isolation Patients with confirmed COVID-19 should remain under home isolation precautions until the risk of secondary transmission to others is thought to be low. Pending Studies at Discharge: No Stand-Alone Forms: My [facility] Localsensor, Smoking Cessation Medications and DC Order Prescriptions: New amlodipine [Norvasc] 5 mg Tablet 10 mg PO QAM Qty: 60 RF: 0 atenolol 25 mg Tablet 25 mg PO QAM Qty: 30 RF: 0 cefazolin 1 gram recon soln 2 g IV Q8H 14 Days RF: 0 dexamethasone 6 mg tablet 6 mg PO DAILY Qty: 1 RF: 0 (DME) insulin admin supplies Insulin Pen See Rx Instructions .ROUTE .MEDSUPPLY Qty: 1 RF: 0 Basaglar KwikPen U-100 Insulin 100 unit/mL (3 mL) insulin pen 25 unit subcut DAILY Qty: 15 RF: 3 (DME) insulin admin supplies Insulin Pen See Rx Instructions .ROUTE .MEDSUPPLY Qty: 1 RF: 0 (DME) blood-glucose meter [Accu-Chek Guide Me Glucose Mtr] Misc See Rx Instructions .ROUTE .MEDSUPPLY Qty: 1 RF: 0 (DME) Accu-Chek Guide test strips Strip See Rx Instructions .ROUTE .MEDSUPPLY Qty: 100 RF: 0 (DME) lancets [Accu-Chek Fastclix Lancet Drum] Misc See Rx Instructions .ROUTE .MEDSUPPLY Qty: 100 RF: 0 Continued omega-3 fatty acids [Fish Oil Concentrate] 1,000 mg Capsule 1,000 mg PO QAM Qty: 0 RF: 0 cyanocobalamin (vitamin B-12) [Vitamin B-12] 1,000 mcg Tablet 1,000 mcg PO QAM Qty: 0 RF: 0 glucosamine sulfate [Glucosamine] 500 mg Tablet 500 mg PO QAM Qty: 0 RF: 0 metformin 1,000 mg Tablet 1,000 mg PO BID Qty: 0 RF: 0 allopurinol 300 mg Tablet 300 mg PO QAM Qty: 0 RF: 0 cinnamon bark [Cinnamon] 500 mg Capsule 500 mg PO QAM Qty: 0 RF: 0 grape seed extract 50 mg Tablet 50 mg PO QAM Qty: 0 RF: 0 zinc 50 mg Tablet 50 mg PO QAM Qty: 0 RF: 0 ketoconazole 2 % Shampoo 1 ea TOPICAL DIRECTED 30 Days Qty: 120 RF: 1 calcium carbonate [Calcium 600] 600 mg calcium (1,500 mg) Tablet 600 mg PO QAM Qty: 0 RF: 0 garlic Tablet 2,000 mg PO QAM Qty: 0 RF: 0 cholecalciferol (vitamin D3) [Vitamin D3] 25 mcg (1,000 unit) Tablet 25 mcg PO QAM 90 Days Qty: 90 RF: 3 atorvastatin 40 mg tablet 40 mg PO PM RF: 0 aspirin 81 mg Tablet,Delayed Release (Dr/Ec) 81 mg PO QAM RF: 0 glimepiride 4 mg tablet 4 mg PO QAM RF: 0 flurbiprofen 100 mg tablet 100 mg PO QAM RF: 0 magnesium oxide 400 mg magnesium Tablet 400 mg PO QAM RF: 0 acetaminophen [Tylenol Extra Strength] 500 mg Tablet 500 mg PO Q8H PRN (Reason: Pain) RF: 0 Changed losartan 100 mg tablet 50 mg PO QAM Qty: 0 RF: 0 Discontinued atenolol-chlorthalidone 100-25 mg tablet 1 tab PO QAM RF: 0 Discharge Orders: Discharge Order (Routine); Ordered 10/17/20 Ordered By: Jenifer Farmer/Other Patient Handouts: How to Check Your Blood Sugar, Diabetes: Meal Planning, Insulin Pen Clear Insulin Steps, A1C Admission Data Admit Date/Time: 10/09/20 16:51 Attending Provider: Jenifer Veloz Admit Provider: James Sheridan Primary Care Provider: Soren Nicholson Other Providers: James Sheridan ; Kyle Oliver ; Flash Aleman ; Idris Hernandez ; Francisco Sorto I. ; Zhang Estevez II ; Maureen Link ; Selvin Guillen ; Oren Edouard Other Interventions: Discharge Summary Assessment (RN) Last Done: 10/17/20 12:24
[2020-10-17] MEDS ORDERED: INSULIN GLARGINE SOLOSTAR 100 UNITS/ML 3 ML PEN SC SCH (21:00)
== END 2020-10-17 16:00 | disposition home health service (06) | DRG 177 ==
LOC: ED 12:51 → 2S 16:51 → SUATTDRO 16:51 → 2S 19:22

== ENCOUNTER 2021-12-22 05:48 | Inpatient (IN) ==
--- NOTE | 2021-12-02 11:03 | PAT Medication Instructions ---
Medication Instructions Date of Service December 02, 2021 Home Medications Medication Instructions Recorded atenolol 25 mg tablet 25 mg PO QAM #30 tab 10/17/20 blood sugar diagnostic (Accu-Chek #100 ea 10/17/20 Guide test strips) blood-glucose meter (Accu-Chek #1 ea 10/17/20 Guide Me Glucose Mtr) insulin admin supplies #1 ea 10/17/20 insulin admin supplies #1 ea NS 10/17/20 lancets (Accu-Chek Fastclix Lancet #100 ea 10/17/20 Drum) allopurinol 300 mg tablet 300 mg PO QAM cinnamon bark 500 mg capsule (Cinnamon) 500 mg PO QAM cyanocobalamin (vitamin B-12) 1,000 mcg tablet (Vitamin B-12) 1,000 mcg PO QAM glucosamine sulfate 500 mg tablet (Glucosamine) 500 mg PO QAM metformin 1,000 mg tablet 1,000 mg PO BID omega-3 fatty acids 1,000 mg capsule (Fish Oil Concentrate) 1,000 mg PO QAM grape seed extract 50 mg tablet 50 mg PO QAM zinc 50 mg tablet 50 mg PO QAM calcium carbonate 600 mg calcium (1,500 mg) tablet (Calcium) 600 mg PO QAM cholecalciferol (vitamin D3) 25 mcg (1,000 unit) tablet (Vitamin D3) 25 mcg PO QAM garlic 1,000 mg PO QAM ketoconazole 2 % shampoo 1 ea TOPICAL DIRECTED acetaminophen 500 mg tablet (Tylenol Extra Strength) 500 mg PO Q8H PRN aspirin 81 mg tablet,delayed release 81 mg PO QAM atorvastatin 40 mg tablet (Lipitor) 40 mg PO PM flurbiprofen 100 mg tablet 100 mg PO QAM glimepiride 4 mg tablet 4 mg PO QAM magnesium oxide 400 mg PO QAM atenolol 25 mg tablet 25 mg PO QAM blood sugar diagnostic (Accu-Chek Guide test strips) blood-glucose meter (Accu-Chek Guide Me Glucose Mtr) insulin admin supplies #1 ea insulin admin supplies #1 ea lancets (Accu-Chek Fastclix Lancet Drum) furosemide 40 mg tablet 40 mg PO QAM insulin glargine 100 unit/mL (3 mL) subcutaneous pen (Basaglar JoeyPen U-100 Insulin) 25 unit SUBCUT QAM losartan 100 mg tablet 100 mg PO QAM turmeric 400 mg capsule 400 mg PO QAM ASK your surgeon for instructions flurbiprofen 100 mg tablet 100 mg PO QAM STOP taking 2 weeks before surgery glucosamine sulfate 500 mg tablet (Glucosamine) 500 mg PO QAM omega-3 fatty acids 1,000 mg capsule (Fish Oil Concentrate) 1,000 mg PO QAM grape seed extract 50 mg tablet 50 mg PO QAM STOP taking 24 hours before surgery ketoconazole 2 % shampoo 1 ea TOPICAL DIRECTED DO NOT take the morning of surgery cinnamon bark 500 mg capsule (Cinnamon) 500 mg PO QAM cyanocobalamin (vitamin B-12) 1,000 mcg tablet (Vitamin B-12) 1,000 mcg PO QAM zinc 50 mg tablet 50 mg PO QAM calcium carbonate 600 mg calcium (1,500 mg) tablet (Calcium) 600 mg PO QAM cholecalciferol (vitamin D3) 25 mcg (1,000 unit) tablet (Vitamin D3) 25 mcg PO QAM garlic 1,000 mg PO QAM metformin 1,000 mg tablet 1,000 mg PO BID glimepiride 4 mg tablet 4 mg PO QAM magnesium oxide 400 mg PO QAM furosemide 40 mg tablet 40 mg PO QAM losartan 100 mg tablet 100 mg PO QAM turmeric 400 mg capsule 400 mg PO QAM Take morning of surgery With a small sip of water, OTHERWISE NOTHING TO EAT OR DRINK AFTER MIDNIGHT: see below for insulin instructions. aspirin 81 mg tablet,delayed release 81 mg PO QAM (unless directed otherwise by surgeon, then also review with prescriber) allopurinol 300 mg tablet 300 mg PO QAM acetaminophen 500 mg tablet (Tylenol Extra Strength) 500 mg PO Q8H PRN(okay to take up to 4 hours prior to surgery if needed) atorvastatin 40 mg tablet (Lipitor) 40 mg PO PM atenolol 25 mg tablet 25 mg PO QAM Take evening before surgery metformin 1,000 mg tablet 1,000 mg PO BID acetaminophen 500 mg tablet (Tylenol Extra Strength) 500 mg PO Q8H PRN(if needed) Insulin Dependent Diabetic Patients * Test your blood sugar the morning of surgery * If Blood Sugar is GREATER THAN 150, take HALF of your regular dose of: insulin glargine 100 unit/mL (3 mL) subcutaneous pen (Basaglar KwikPen U-100 Insulin) 12 unit SUBCUT QAM * If Blood Sugar is LESS THAN 150, DO NOT TAKE ANY: Other Notes If you have any questions please call us at [phone] or [phone] or [phone] or [phone]
--- NOTE | 2021-12-04 11:29 | Anesthesiology Consultation ---
Date of Service December 04, 2021 Assessment & Plan (1) Encounter for pre-operative examination: - medical clearance [facility] 12/09/2021 and A1c, optimization note completed to be faxed with [facility] pre-op testing and Huma at [facility] aware. - check BSG am DOS. - pulmonology office visit 11/25/2021 [facility]: "... severe TAD...dyslipidemia, DM 2, gout, obesity, CHF (diastolic), htn, OA, vitamin D deficiency, psoriatic arthropathy...Sleep Medicine to date: PSG 09/26/2008: AHI 74.1, SpO2 nelson 58%, time <90% 185 minutes. PAP titration 11/06/2008: titrated to 16 cmH2O. PAP titration 07/31/2010: titrated to 14 cmH2O with residual AHI 1.8 and adequate oxygenation...Using CPAP 16 cmH2O...Last seen by Dr. Olvera, on 10/2020, was Recovering from Covid PNA, admitted 10/09 for 8 days at [facility]. Needed oxygen at 2 LPM 31/05. Feeling fatigued, receiving IV abx, causing him to awaken overnight for diarrhea. AHI 2.1 on 16 cwp. Had been intermittent with use during this time. Sent in orders for 2 LPM to be bled into CPAP. Interim History: Today, reports his oxygen was taken back in November 2020. Has been wearing his CPAP more often since then. Has registered for [employer] CPAP recall, and has not had his replacement machine yet...encourage continued use of CPAP all night, every night and with any naps...Blood pressure 134/80 today, continue to take medications and monitor blood pressure at home...hypervolemic on exam, continue diuretics as prescribed by Cardiology. Untreated TAD can worsen CHF...suggested repeating nocturnal overnight oximetry since use of oxygen s/p covid 19 infection, patient declined..." - PCP office visit f/u 10/24/2021 [facility]: "...Pt here today for 1 week FU. Pt was in to see Dr. Vernon about a week ago. He was having SOB, swelling in legs, 30 lb weight gain over a month. Pt had been SOB for a month. He did have a little bit of a dry cough. He does have TAD and uses CPAP. Pt was given lasix 40 mg daily. He has been taking this...weight has come down 11 pounds. He is no longer SOB. He feels good. Pt still with some swelling but much better than it was. Pt just had repeat labs yesterday, at [place]. BP still a little elevated at 162/70. He is taking all of his other meds, as directed. Pt has no new concerns today...Continue lasix 40 mg daily. Will wait for labs. Nurse visit BP check in 1 week..." - PCP office visit 10/17/2021 [facility]: "...Has been short of breath for about a month...at [facility] 09/17/21...normal EKG and negative COVID test. Is worse at night if he lays down to sleep. Got very short of breath last night. Does have a CPAP that helps him breathe at night. Has a cough with little phlegm. No fever or chills. No COVID contact. No loss of taste or smell. Legs have been swelling for a while now. His amlodipine was discontinued 07/15/21 due to ankle swelling. No chest pain but sometimes heart feels like it is beating hard when short of breath. Has never taken Lasix. Had one echo one year ago with normal EF but grade II diastolic dysfunction. Legs somewhat more swollen than they had been. Has gained 24 pounds in the last 3 months but was not aware of the weight gain. A/P: Acute diastolic heart failure...patient with 24 pound weight gain in 3 months with edema and SOB/orthopnea. Last echo showed grade II diastolic dysfunction. Start Lasix and check BMP in 1 week to see if potassium supplement is needed. Consider cardiology if not improving. Also needs BP recheck but suspecting it will improve with diuresis. EKG at last visit was normal..." - Case discussed with Dr. Ldeezma who advised if patient is cleared at upcoming appointment, is acceptable risk for surgery from anesthesia standpoint. - COVID screening: Per assessment on 12/04/2021: Travel screen negative, no known COVID-19 positive contacts or current COVID-19 related symptoms in past 2 weeks. Patient vaccinated. Surgeon arranging preop COVID testing, scheduled 12/18/2021 [facility]. Awaiting results. Chart Review Chart Review: Pending: Refer to Additional Notes / Consult section and Patient seen in Pre Admission Testing Teaching & Discussion Pre-Anesthesia Teaching/Discussion Notes: Instructed NPO after midnight before surgery, except medications with 15 cc of water. Medication instructions provided according to the PAT guidelines. History Surgery Operation Date: 12/22/21 07:45 Proposed Procedures p L2-S1 Decompression and Fusion - Dilip Griffin DO Height/Weight Height: 5 ft 11 in Weight: 142.7 kg Allergies Allergy/AdvReac Type Severity Reaction Status Date / Time No Known Allergies Allergy Verified 12/01/21 09:41 Medications Home Medications Medication Instructions Recorded Confirmed Last Taken allopurinol 300 mg tablet 300 mg PO QAM #0 tab 05/18/16 12/01/21 10/09/20 cinnamon bark 500 mg capsule 500 mg PO QAM #0 05/18/16 12/01/21 10/09/20 (Cinnamon) cyanocobalamin (vitamin B-12) 1,000 mcg PO QAM #0 tab 05/18/16 12/01/21 10/09/20 1,000 mcg tablet (Vitamin B-12) glucosamine sulfate 500 mg tablet 500 mg PO QAM #0 tab 05/18/16 12/01/21 10/09/20 (Glucosamine) metformin 1,000 mg tablet 1,000 mg PO BID #0 tab 05/18/16 12/01/21 10/09/20 omega-3 fatty acids 1,000 mg 1,000 mg PO QAM #0 cap 05/18/16 12/01/21 10/09/20 capsule (Fish Oil Concentrate) grape seed extract 50 mg tablet 50 mg PO QAM #0 07/08/16 12/01/21 10/09/20 zinc 50 mg tablet 50 mg PO QAM #0 07/08/16 12/01/21 10/09/20 calcium carbonate 600 mg calcium 600 mg PO QAM #0 03/17/18 12/01/21 10/09/20 (1,500 mg) tablet (Calcium) cholecalciferol (vitamin D3) 25 25 mcg PO QAM 90 Days #90 tab 03/17/18 12/01/21 10/09/20 mcg (1,000 unit) tablet (Vitamin D3) garlic 1,000 mg PO QAM #0 03/17/18 12/01/21 10/09/20 ketoconazole 2 % shampoo 1 ea TOPICAL DIRECTED 30 Days 03/17/18 12/01/21 Unknown #120 ml acetaminophen 500 mg tablet 500 mg PO Q8H PRN 10/09/20 12/01/21 10/09/20 (Tylenol Extra Strength) aspirin 81 mg tablet,delayed 81 mg PO QAM 10/09/20 12/01/21 10/09/20 release atorvastatin 40 mg tablet (Lipitor) 40 mg PO PM 10/09/20 12/01/21 10/09/20 flurbiprofen 100 mg tablet 100 mg PO QAM 10/09/20 12/01/21 10/09/20 glimepiride 4 mg tablet 4 mg PO QAM 10/09/20 12/01/21 10/09/20 magnesium oxide 400 mg PO QAM 10/09/20 12/01/21 10/09/20 atenolol 25 mg tablet 25 mg PO QAM #30 tab 10/17/20 12/01/21 Unknown blood sugar diagnostic (Accu-Chek #100 ea 10/17/20 Unknown Guide test strips) blood-glucose meter (Accu-Chek #1 ea 10/17/20 Unknown Guide Me Glucose Mtr) insulin admin supplies #1 ea 10/17/20 Unknown insulin admin supplies #1 ea NS 10/17/20 Unknown lancets (Accu-Chek Fastclix Lancet #100 ea 10/17/20 Unknown Drum) furosemide 40 mg tablet 40 mg PO QAM 12/01/21 12/01/21 Unknown insulin glargine 100 unit/mL (3 25 unit SUBCUT QA 12/01/21 12/01/21 Unknown mL) subcutaneous pen (Dianaaglar KwbonitaPen U-100 Insulin) losartan 100 mg tablet 100 mg PO QAM 12/01/21 12/01/21 Unknown turmeric 400 mg capsule 400 mg PO QAM 12/01/21 12/01/21 Unknown Past Medical History Medical History (Updated 12/04/21 @ 12:17 by Janelle Nicholson PA-C) Chronic back pain Degenerative disc disease Diabetes mellitus type II, controlled fluctuating per pt, follows with PCP [facility] Dyslipidemia Dyspnea on exertion ongoing since COVID 19 illness 10/2020, exacerbation 09/2021-per [facility] records, pt in heart failure and started on po diuretics with close f/[id number]-lje pt near baseline Gout controlled, stable per pt Heart failure Grade II diastolic dysfunction on 2019 echo; 10/2021 PCP acute visit for increased dyspnea, hypervolemia-started on diuretic, back to baseline per pt still with dyspnea on exertion and peripheral edema HTN (hypertension) controlled, stable per pt, occ elevation in clinical settings per pt Morbid obesity TAD on CPAP compliant, follows with [facility] pul Osteoarthritis Pneumonia due to COVID-19 virus 10/2020-acute hypoxic respiratory failure, d/c on 2 L supplemental oxygen with ambulation-taken by insurance 11/2020 per [facility] pul records, pt declined repeat testing Psoriatic arthropathy Patient denies h/o stroke, seizures, heart attack, heart failure, blood clots or blood transfusions. Exercise / Class Metabolic Activity III < 4 Walking/Shop/Light housework (mild SOB, denies CP; denies needing stop; chronic over past year since COVID 19 illness, reports improvement to near baseline since 10/2021 PCP visit for heart failure) Past Family History Family History (Updated 12/01/21 @ 09:55 by Gayle Salazar RN) Other No family history of adverse response to anesthesia Past Surgical History Surgical History (Updated 12/04/21 @ 12:17 by Janelle Nicholson PA-C) H/O meniscectomy of right knee "1994 Dr. Bernard" H/O wisdom tooth extraction History of colonoscopy History of tonsillectomy Hx of total knee arthroplasty bilateral. left 04/15/2018: SAB at L3-L4, 1 attempt + PNB. No issues per anesthesia postop progress note. Past Anesthesia History No Hx of Anesthesia Complications and No Family Hx of Anesthesia Complications History of PONV No Hx of PONV and No Hx of Motion Sickness Social History Smoking Status: Never smoker Do You Dip or Chew Tobacco: No Hx Alcohol Use: Yes Alcohol type: hard liquor alcohol intake frequency: a few times a month Hx Substance Use: No substance use type: does not use Review of Systems Patient denies chest pain, reflux, fever, chills, cough, wheezing, HOBBS, visual changes, dizziness, lightheadedness, or palpitations. Physical Exam Vital Signs Vitals BP 172/74 (He states BP will at times elevate in clinical settings if anxious, usually in normal range at PCP office, unable to provide example) P 55 TEMP SP02 96% on RA RESP 17 Physical Short, thick neck Full cervical extension range of motion without pain Full TMJ range of motion TMD 3 finger breaths Mallampati Score 3 Dentition: intact, crown-back; denies chipped or loose teeth, implants or bridges Lungs: normal respiratory effort. Clear throughout to auscultation, no adventitious breath sounds Cardiac: regular rate and rhythm, no murmurs noted Carotid arteries: negative bruit bilat Extremities: 1+ pitting edema distal lower extremities bilat (nonerythematous, nontender) chronic per pt without change or worsening Lab Results Anesthesia Preop Results Results Anesthesia Widget: WBC 8.28 K/uL (4.8-10.8) 12/04/21 Hgb 12.9 g/dL (14.0-18.0) L 12/04/21 Hct 38.8 % (42-52) L 12/04/21 Plt 182 K/uL (130-400) 12/04/21 Na 140 mmol/L (136-145) 12/04/21 K 3.6 mmol/L (3.5-5.1) 12/04/21 Cl 104 mmol/L (98-107) 12/04/21 CO2 26 mmol/L (21-32) 12/04/21 BUN 21 mg/dl (6-23) 12/04/21 Creat 0.86 mg/dl (0.6-1.4) 12/04/21 Glucose Level 115 mg/dl (70-99(Fasting)) H 12/04/21 PT 10.6 Seconds (9.0-12.0) 12/04/21 PTT 26.4 Seconds (21.0-31.0) 12/04/21 INR 1.0 (0.9-1.1) 12/04/21 Urine Color Yellow 12/04/21 Urine Appearance Clear (Clear) 12/04/21 Urine pH 6.5 (4.5-7.5) 12/04/21 Urine Specific [place] 1.008 (1.000-1.030) 12/04/21 Urine Protein 1+ (Negative) H 12/04/21 Urine Glucose (UA) Negative (Negative) 12/04/21 Urine Ketones Negative (Negative) 12/04/21 Urine Blood Trace (Negative) H 12/04/21 Urine Nitrite Negative (Negative) 12/04/21 Urine Bilirubin Negative (Negative) 12/04/21 Urine Urobilinogen Negative (Negative) 12/04/21 Urine Leukocyte Esterase Negative (Negative) 12/04/21 Urine WBC (Auto) 1-5 /hpf (0-5) 12/04/21 Urine RBC (Auto) 0-4 /hpf (0-4) 12/04/21 Urine Hyaline Casts (Auto) 0 /lpf (0-5) 12/04/21 Urine Epithelial Cells (Auto) 0-5 /lpf (0-5) 12/04/21 Urine Bacteria (Auto) Negative (Negative) 12/04/21 Blood Type B Negative 12/04/21 Antibody Screen NEGATIVE 12/04/21 Testing Electrocardiogram Date: 12/04/21 Sinus bradycardia, rate 56 bpm Chest X-Ray Date: 12/04/21 FINDINGS: No lines and tubes are seen. Cardiomegaly is noted. The lungs are clear. No evidence of pleural effusion or pneumothorax. IMPRESSION: No acute chest disease. Echocardiogram Date: 10/25/20 Echo from 2019 EF 55-59% Grade II diastolic dysfunction Moderate cLVH Mild septal dyssynergy Moderate left atrial enlargement There is no evidence of pulmonary hypertension No significant valvular pathology
[2021-12-22] MEDS ORDERED: GABAPENTIN 600 MG DOSE PO SCH (06:00)
[2021-12-22] MEDS ORDERED: LR 15ML/HR IV SCH (06:00)
[2021-12-22] MEDS ORDERED: ACETAMINOPHEN 500 MG TAB PO SCH (06:00)
[2021-12-22] MEDS ORDERED: CeleBREX 200 MG CAP PO SCH (06:00)
[2021-12-22] MEDS ORDERED: PHENYLEPHRINE 100MCG/ML 5ML SYR ONE (06:54)
[2021-12-22] MEDS ORDERED: LIDOCAINE 2% 2 ML VIAL/AMP(20MG/ML) INFIL ONE (06:54)
[2021-12-22] MEDS ORDERED: MIDAZOLAM HCL 1 MG/ML 2ML VIAL ONE (06:54)
[2021-12-22] MEDS ORDERED: fentaNYL citrate 100 MCG/2 ML VIAL ONE ×2 (06:54)
[2021-12-22] MEDS ORDERED: ePHEDrine sulfate 50 MG/ML SYR ONE ×2 (06:54→09:04)
[2021-12-22] MEDS ORDERED: PROPOFOL IV EMULSION 10 MG/ML 20 ML VIAL IV ONE (06:54)
[2021-12-22] MEDS ORDERED: LARYING-O-JET KIT (LTA) ONE (06:54)
[2021-12-22] MEDS ORDERED: ROCURONIUM BROMIDE 10 MG/ML 5 ML VIAL IV ONE ×3 (06:54→09:12)
[2021-12-22] MEDS ORDERED: NEOSTIGMINE METHYLSULFATE 1 MG/ML 10ML VIAL ONE (06:54)
[2021-12-22] MEDS ORDERED: ONDANSETRON INJ 2 MG/ML 2 ML VIAL ONE ×2 (06:54→11:39)
[2021-12-22] MEDS ORDERED: DEXAMETHASONE SOD INJ 4 MG/ML VIAL ONE (06:54)
[2021-12-22] MEDS ORDERED: GLYCOPYRROLATE 0.2 MG/ML VIAL ONE ×2 (06:54→09:00)
[2021-12-22] MEDS ORDERED: BUPIVACAINE/EPINEPHRINE 0.25% 1:200,000 30 ML VIAL ONE (06:59)
[2021-12-22] MEDS ORDERED: ceFAZolin 330 MG/ML 1 GM VIAL ONE (06:59)
--- NOTE | 2021-12-22 07:36 | History & Physical Bridge Note ---
Date of Service December 22, 2021 History & Physical Bridge Note I have examined the patient, reviewed the History & Physical and in the interval since the performance of the History & Physical I have noted the following changes of clinical significance: no changes noted
--- NOTE | 2021-12-22 07:37 | History & Physical Report ---
Date of Service December 22, 2021 Assessment & Plan (1) Neurogenic claudication due to lumbar spinal stenosis: Plan: L2-L4 decompression fusion, possible L1-L2 History of Present Illness Chief Complaint: Back and bilateral leg pain Primary Care Provider: Soren Nicholson MD This is a 61-year-old male presents with chronic persistent back and leg pain after failing course of nonoperative care is here for surgical invention. Allergies Allergy/AdvReac Type Severity Reaction Status Date / Time No Known Allergies Allergy Verified 12/22/21 06:06 Home Medications Medication Instructions Recorded Confirmed Type allopurinol 300 mg tablet 300 mg PO QAM #0 tab 05/18/16 12/22/21 History cinnamon bark 500 mg capsule 500 mg PO QAM #0 05/18/16 12/22/21 History (Cinnamon) cyanocobalamin (vitamin B-12) 1,000 mcg PO QAM #0 tab 05/18/16 12/22/21 History 1,000 mcg tablet (Vitamin B-12) glucosamine sulfate 500 mg tablet 500 mg PO QAM #0 tab 05/18/16 12/22/21 History (Glucosamine) metformin 1,000 mg tablet 1,000 mg PO BID #0 tab 05/18/16 12/22/21 History omega-3 fatty acids 1,000 mg 1,000 mg PO QAM #0 cap 05/18/16 12/22/21 History capsule (Fish Oil Concentrate) grape seed extract 50 mg tablet 50 mg PO QAM #0 07/08/16 12/22/21 History zinc 50 mg tablet 50 mg PO QAM #0 07/08/16 12/22/21 History calcium carbonate 600 mg calcium 600 mg PO QAM #0 03/17/18 12/22/21 History (1,500 mg) tablet (Calcium) cholecalciferol (vitamin D3) 25 25 mcg PO QAM 90 Days #90 tab 03/17/18 12/22/21 History mcg (1,000 unit) tablet (Vitamin D3) garlic 1,000 mg PO QAM #0 03/17/18 12/22/21 History ketoconazole 2 % shampoo 1 ea TOPICAL DIRECTED 30 Days 03/17/18 12/22/21 History #120 ml acetaminophen 500 mg tablet 500 mg PO Q8H PRN 10/09/20 12/22/21 History (Tylenol Extra Strength) aspirin 81 mg tablet,delayed 81 mg PO QAM 10/09/20 12/22/21 History release atorvastatin 40 mg tablet (Lipitor) 40 mg PO PM 10/09/20 12/22/21 History flurbiprofen 100 mg tablet 100 mg PO QAM 10/09/20 12/22/21 History glimepiride 4 mg tablet 4 mg PO QAM 10/09/20 12/22/21 History magnesium oxide 400 mg PO QAM 10/09/20 12/22/21 History atenolol 25 mg tablet 25 mg PO QAM #30 tab 10/17/20 12/22/21 Rx blood sugar diagnostic (Accu-Chek #100 ea 10/17/20 Rx Guide test strips) blood-glucose meter (Accu-Chek #1 ea 10/17/20 Rx Guide Me Glucose Mtr) insulin admin supplies #1 ea 10/17/20 Rx insulin admin supplies #1 ea NS 10/17/20 Rx lancets (Accu-Chek Fastclix Lancet #100 ea 10/17/20 Rx Drum) furosemide 40 mg tablet 40 mg PO QAM 12/01/21 12/22/21 History insulin glargine 100 unit/mL (3 25 unit SUBCUT QAM 12/01/21 12/22/21 History mL) subcutaneous pen (Basaglar KwikPen U-100 Insulin) losartan 100 mg tablet 100 mg PO QAM 12/01/21 12/22/21 History turmeric 400 mg capsule 400 mg PO QAM 12/01/21 12/22/21 History Past Med/Surg History Medical History (Updated 12/22/21 @ 07:37 by Dilip Griffin DO) Chronic back pain Degenerative disc disease Diabetes mellitus type II, controlled fluctuating per pt, follows with PCP [facility] Dyslipidemia Dyspnea on exertion ongoing since COVID 19 illness 10/2020, exacerbation 09/2021-per [facility] records, pt in heart failure and started on po diuretics with close f/k-mhjwhfrimcb-vwo pt near baseline Gout controlled, stable per pt Heart failure Grade II diastolic dysfunction on 2019 echo; 10/2021 PCP acute visit for increased dyspnea, hypervolemia-started on diuretic, back to baseline per pt still with dyspnea on exertion and peripheral edema HTN (hypertension) controlled, stable per pt, occ elevation in clinical settings per pt Morbid obesity TAD on CPAP compliant, follows with [facility] pul Osteoarthritis Pneumonia due to COVID-19 virus 10/2020-acute hypoxic respiratory failure, d/c on 2 L supplemental oxygen with ambulation-taken by insurance 11/2020 per [facility] pul records, pt declined repeat testing Psoriatic arthropathy Surgical History H/O meniscectomy of right knee "1994 Dr. Bernard" H/O wisdom tooth extraction History of colonoscopy History of tonsillectomy Hx of total knee arthroplasty bilateral. left 04/15/2018: SAB at L3-L4, 1 attempt + PNB. No issues per anesthesia postop progress note. Family History Other No family history of adverse response to anesthesia Social History Smoking Status: Never smoker Second Hand Exposure: No; Do You Dip or Chew Tobacco: No; Tobacco Cessation Education Requested by Patient: No Hx Alcohol Use: Yes Alcohol type: hard liquor Hx Substance Use: No Preferred Language: Korean Communication Ability: Effective Green Chain Offbearer Required: No Beliefs That Will Affect Care: None marital status: Current Living Situation: Spouse current occupational status: employed Other Information That Helps Us Care for You: No Feels Safe at Home: Yes Safety Concerns: Feels Safe At This Time Assistive Devices: Cane, CPAP and Glasses Physical Exam Physical Exam: Patient is alert and oriented Heart regular rhythm Lungs clear Results & Data ([facility]) Vital Signs (Past 12 Hours) Vital Signs Temp Pulse Resp BP Pulse Ox 12/22/21 06:14 37.1 C 64 22 192/84 H 94
[2021-12-22] MEDS ORDERED: HYDROmorphone INJ 2 MG/ML SYR/VIAL ONE (08:35)
[2021-12-22] MEDS ORDERED: FLOSEAL HEMOSTATIC MATRIX 10ML TOP ONE (08:49)
[2021-12-22] MEDS ORDERED: NALOXONE HCL 0.4 MG/1 ML VIAL/CARP IV PRN ×2 (09:35→13:48)
[2021-12-22] MEDS ORDERED: ONDANSETRON INJ 2 MG/ML 2 ML VIAL IV PRN ×2 (09:35→13:48)
[2021-12-22] MEDS ORDERED: PROMETHAZINE HCL 12.5 MG in SODIUM CHLORIDE 0.9% 50 ML IV PRN ×2 (09:35→13:48)
[2021-12-22] MEDS ORDERED: fentaNYL citrate 100 MCG/2 ML VIAL IV PRN (09:35)
[2021-12-22] MEDS ORDERED: HYDROmorphone INJ 1 MG/ML SYRINGE IV PRN ×2 (09:35→13:48)
[2021-12-22] MEDS ORDERED: FLUMAZENIL 0.1 MG/1 ML 10 ML VIAL IV PRN (09:35)
[2021-12-22] MEDS ORDERED: ePHEDrine sulfate 50 MG/ML AMP IV PRN (09:35)
[2021-12-22] MEDS ORDERED: ATROPINE SULFATE 0.1 MG/ML 10ML SYR IV PRN (09:35)
[2021-12-22] MEDS ORDERED: NovoLIN-R INSULIN PER UNIT CHARGE ONE (10:54)
[2021-12-22 11:00] LABS: iSTAT Creatinine 0.8 mg/dl (0.6-1.3); iSTAT Hemoglobin 10.9 g/dl (14.0-18.0); iSTAT Ionized Calcium 1.18 mmol/l (1.12-1.32)
--- NOTE | 2021-12-22 11:54 | Operative Report ---
Post Operative Report Pre & Post Diagnosis Operation Date: 12/22/21 07:45 Pre-Op Diagnosis: Spinal Stenosis, Lumbar Region with Neurogenic Cla Post-Op Diagnosis: Spinal Stenosis, Lumbar Region with Neurogenic Cla I identified the patient and participated in the time-out.: Yes Procedure Operation Date: 12/22/21 07:45 Actual Procedures #1 lumbar decompression with bilateral medial facetectomies and foraminotomies L1-L2, L2-L3, L3-L4, L4-5 and L5-S1. #2 posterior spinal fusion L2-S1. #3 placement posterior segmental instrumentation L2-S1. #4 interbody fusio L3-L4 L5-S1. #5 placement of titanium 12 x 26 mm cage L3-L4 and 11 x 26 mm cage at L5-S1. #6 placement locally harvested morselized autograft in the posterior gutters. #7 placement of I factor in the interbody space infuse collagen sponge and master graft in the posterior lateral gutters. Surgeon Dilip Griffin, DO Subscription Clerk Lindsay Yusuf Estimated Blood Loss 900 Findings See Below The patient is 5 feet 11 inches tall weighing over 142 kg with a BMI in excess of 43. Patient's body habitus combined with his EBL created significant technical difficulty getting at least 50% increased operative time. Specimens None Indications This is a 61 old male who presents with severe multilevel spinal stenosis marked decline in neurologic status and here for surgical invention. Description of Procedure Patient was met with identified informed consent obtained. Patient was then taken to the operative suite underwent ablation placed in prone position the Ciro table on top of the Severo frame all bony prominences well-padded eyes inspected to ensure no external pressure placed upon the. This point lumbar spine was prepped and draped in a sterile fashion. Sharp dissection with the assistance of Bovie cautery was performed down to and exposing the lamina and transverse processes of L2 L3-L4-L5 and sacral ala bilaterally. From a caudal to cephalad fashion a complete laminectomy of L5 L4 L3 L2 and partial laminectomy of L1 was performed including bilateral medial facetectomies and fo raminotomies addressing severe spinal stenosis. Pedicle screws were then placed bilaterally at L2-S1 with fluoroscopic visualization. Appropriate sized yani placed. By way of a transforaminal approach on the right a complete discectomy of L5-S1 was performed endplates curetted to subcortical being bone and 11 x 26 mm titanium cage filled with I factor tapped in position. Demonstrated L3-L4 and again by way of a transforaminal portion right complete discectomy performed endplates curetted to subcortical being bone and a 12 x 26 mm titanium cage filled with I factor tapped in position. The rods and locked in 5 position bilaterally. The transverse processes of L2 L3-L4-L5 and sacral ala burred to subcortical bleeding bone. Infuse collagen sponge master graft local autograft was placed in the posterior gutters. 15 round DAVID drain inserted. The incision was then closed with 1 Vicryl to fascia 2-0 Vicryl subcutaneously and 4 Monocryl for final skin closure. Steri-Strip sterile dressings placed. Patient will continue PACU stable condition. Please note spinal cord monitoring was utilized at the procedure no changes noted. Lastly Lindsay Yusuf was present at the entire surgery involved the patient positioning complex portions of the surgery and final skin closure. I attest to the content of the Intraoperative Record and any orders documented therein. Any exceptions are noted below.
[2021-12-22] MEDS: LABETALOL HCL IV 5 MG/ML 20ML IV PRN ×2 (12:24→12:29)
[2021-12-22 12:44] LABS: Hematocrit (blood only) 34.2 % (42-52); Hemoglobin 11.1 g/dL (14.0-18.0)
--- NOTE | 2021-12-22 12:47 | Fluoroscopy Report ---
INTRAOPERATIVE RADIOGRAPHS CLINICAL HISTORY: L2-S1 spinal fusion. Fluoroscopy time: 44 seconds. FINDINGS: 3 spot fluoroscopic views of the lumbar spine are presented. There is evidence of extensive lumbosacral spinal fusion from L2-S1. There as been discectomy at L3-L4 and L5-S1. Interpedicular sc rews are present at all levels. The orthopedic hardware appears intact. IMPRESSION: Intraoperative images from lumbar spinal fusion surgery as above. Electronically signed by: Nj Perez M.D. 12/22/2021 12:45 PM
[2021-12-22] MEDS ORDERED: hydrALAZINE HCL 20 MG/ML VIAL IV STA (12:50)
[2021-12-22] MEDS ORDERED: hydrALAZINE HCL 20 MG/ML VIAL ONE (12:50)
--- NOTE | 2021-12-22 13:21 | Anesthesiology Progress Note ---
Date of Service December 22, 2021 Anesthesia Post Procedure Vital Signs Vital Signs: Temp Pulse Pulse Resp BP Pulse Ox 12/22/21 13:15 36.9 C 75 16 160/68 H 94 12/22/21 13:05 69 20 175/71 H 96 12/22/21 12:55 57 L 21 178/78 H 91 12/22/21 12:45 60 15 180/72 H 94 12/22/21 12:35 66 16 182/75 H 94 12/22/21 12:25 62 25 H 192/86 H 97 12/22/21 12:15 64 13 175/84 H 98 12/22/21 12:09 36.5 C 74 18 170/86 H 93 12/22/21 06:14 37.1 C 64 22 192/84 H 94 Transfer of Care Handoff Completed per policy Notes Mental Status: alert / awake / arousable Patient Amnestic to Procedure: Yes Nausea / Vomiting: adequately controlled Pain: adequately controlled Airway Patency, RR, SpO2: stable & adequate BP & HR: stable & adequate Hydration State: stable & adequate Anesthetic Complications: no major complications apparent
[2021-12-22] MEDS ORDERED: METOCLOPRAMIDE HCL INJ 5 MG/ML 2 ML VIAL IV PRN (13:48)
[2021-12-22] MEDS ORDERED: ALUMINUM/MAGNESIUM SUSP 30 ML UDC PO PRN (13:48)
[2021-12-22] MEDS ORDERED: LORazepam 0.5 MG TAB PO PRN (13:48)
[2021-12-22] MEDS ORDERED: ACETAMINOPHEN 500 MG TAB PO PRN (13:48)
[2021-12-22] MEDS ORDERED: SOD PHOSPHATE/SOD BIPHOSPHATE ENEMA 132 ML BTL PR PRN (13:48)
[2021-12-22] MEDS ORDERED: diphenhydrAMINE Capsule 25 MG CAP PO PRN (13:48)
[2021-12-22] MEDS ORDERED: LORazepam 0.5 MG/1 ML VIAL IV PRN (13:48)
[2021-12-22] MEDS ORDERED: DO NOT ADMINISTER PNEUMOCOCCAL VACCINE PRN (13:48)
[2021-12-22] MEDS ORDERED: FAMOTIDINE 20 MG TAB PO PRN (13:48)
[2021-12-22] MEDS ORDERED: ONDANSETRON 4 MG OD TAB PO PRN (13:48)
[2021-12-22] MEDS ORDERED: MAGNESIUM HYDROXIDE SUSP 30 ML UDC PO PRN (13:48)
[2021-12-22] MEDS ORDERED: ACETAMINOPHEN 1,000 MG/100 ML VIAL IV PRN (13:48)
[2021-12-22] MEDS ORDERED: PHARMACY GLYCEMIC MGMT CONSULT PRN (13:48)
[2021-12-22] MEDS ORDERED: hydrOXYzine HCl 25 MG TAB PO PRN (13:48)
[2021-12-22] MEDS ORDERED: traMADol HCL 50 MG TABLET PO PRN (13:48)
[2021-12-22] MEDS ORDERED: HYDROmorphone INJ 0.5 MG/0.5 ML SYR IV PRN (13:48)
[2021-12-22] MEDS ORDERED: DO NOT ADMINISTER FLU VACCINE PRN (13:48)
[2021-12-22] MEDS ORDERED: bisacodyL 10 MG SUPP PR PRN (13:48)
[2021-12-22] MEDS ORDERED: GLUCAGON FOR INJ 1 MG VIAL IM PRN (14:15)
[2021-12-22] MEDS ORDERED: GLUCOSE 40% GEL 15 GM TUBE PO PRN (14:15)
[2021-12-22] MEDS ORDERED: CARBOHYDRATES FOR HYPOGLYCEMIA PO PRN (14:15)
[2021-12-22] MEDS ORDERED: DEXTROSE 50% 50 ML SYRINGE IV PRN (14:15)
[2021-12-22] MEDS ORDERED: GLUCOSE 10 TABS/TUBE PO PRN (14:15)
--- NOTE | 2021-12-22 14:54 | Pharmacy Report ---
Pharmacy Glycemic Short Note 2 - Date of Service December 22, 2021 - Glycemic Short BSG Results (Last 24 hours): 12/22/21 12/22/21 12/22/21 06:10 10:43 11:52 POC Glucose 137 H 183 H POC Glucose (other) 195 H 12/22/21 12:13 POC Glucose 183 H POC Glucose (other) OUTPATIENT ANTIDIABETIC REGIMEN: * Basaglar 25 units Qam, glimepiride 4 mg Qam, metformin 1 gm bid * A1c 7.8% - from PCP notes 12/09/21 ASSESSMENT: * 61 year old now POD 0 - spinal surgery. Received steroids in OR therefore I anticipate steroid induced hyperglycemia * Lunch BSG 183 mg/dL, 5 units of regular insulin pulled in OR. Confirmed with RN that patient did not take his AM Basaglar, therefore will enter a dose in for now. Plan to stress dosing due to steroids PLAN FOR INPATIENT GLYCEMIC CONTROL: * Hold outpatient oral diabetes medications * Basal insulin * Lantus 30 x 1 * Lantus HS per scale 0-10 units * Bolus insulin * NovoLog per scale ACHS or Q6hrs while NPO * Goal Range: Low 110 mg/dL - High 140 mg/dL * Correction Factor: 15 mg/dL/unit * Nutritional / Prandial insulin per carb ratio of 1 unit per 5 grams CHO consumed PLAN FOR DISCHARGE: * tbd
[2021-12-22] MEDS: SODIUM CHLORIDE 0.9% 1000ML 1,000 ML IV SCH ×2 (15:00→22:07)
[2021-12-22] MEDS ORDERED: INSULIN GLARGINE SOLOSTAR 100 UNITS/ML 3 ML PEN SC ONE (15:00)
--- NOTE | 2021-12-22 15:20 | Internal Medicine Consult Note ---
Date of Consultation December 22, 2021 Assessment & Plan (1) Neurogenic claudication due to lumbar spinal stenosis: S/P lumbar decompression, fusion surgery L2-S1 POD # 0 Pain is controlled Monitor for post OP anemia Bowel regimen to prevent constipation Activity, Wound Care & DVT Px as per Primary team Incentive Spirometry DM Type II: Last HbA1c 7.8 on 12/09/2021 Will hold oral diabetic meds ISS, basal Insulin, Accu checks, Diabetic diet Pharmacy Glycemic control consult Pharmacy to manage Insulin HTN Recently was switched from carvedilol to atenolol by PCP Continue atenolol, losartan Monitor BP Gout On allopurinol Dyslipidemia On statin next Morbid obesity BMI 43.9 History of diastolic heart failure As per records Monitor volume status Continue home meds TAD CPAP at bedtime DVT Px: As per Primary Team History of Present Illness Reason for Consultation: Medical Management Requesting Physician: Attending Physician: Dilip Griffin, DO History of Present Illness Patient is a 61-year-old male with history of diabetes mellitus, morbid obesity, diastolic heart failure as per records, gout, dyslipidemia, hypertension and other medical problems was consulted for postop medical management. Patient had lumbar L2-S1 decompression fusion surgery by Dr. Grififn today. Patient is doing well postoperatively. Patient states having some discomfort of the lower back at surgical site. Also reports bilateral leg burning-like sensation postoperatively. Denies any history of chest pain, SOB, palpitations, dizziness, cough, fever, chills, headache, change in vision, nausea, vomiting, abdominal pain, dysuria, hematuria. Allergies Allergy/AdvReac Type Severity Reaction Status Date / Time No Known Allergies Allergy Verified 12/22/21 06:06 Home Medications Medication Instructions Recorded Confirmed Type allopurinol 300 mg tablet 300 mg PO QAM #0 tab 05/18/16 12/22/21 History cinnamon bark 500 mg capsule 500 mg PO QAM #0 05/18/16 12/22/21 History (Cinnamon) cyanocobalamin (vitamin B-12) 1,000 mcg PO QAM #0 tab 05/18/16 12/22/21 History 1,000 mcg tablet (Vitamin B-12) glucosamine sulfate 500 mg tablet 500 mg PO QAM #0 tab 05/18/16 12/22/21 History (Glucosamine) metformin 1,000 mg tablet 1,000 mg PO BID #0 tab 05/18/16 12/22/21 History omega-3 fatty acids 1,000 mg 1,000 mg PO QAM #0 cap 05/18/16 12/22/21 History capsule (Fish Oil Concentrate) grape seed extract 50 mg tablet 50 mg PO QAM #0 07/08/16 12/22/21 History zinc 50 mg tablet 50 mg PO QAM #0 07/08/16 12/22/21 History calcium carbonate 600 mg calcium 600 mg PO QAM #0 03/17/18 12/22/21 History (1,500 mg) tablet (Calcium) cholecalciferol (vitamin D3) 25 25 mcg PO QAM 90 Days #90 tab 03/17/18 12/22/21 History mcg (1,000 unit) tablet (Vitamin D3) garlic 1,000 mg PO QAM #0 03/17/18 12/22/21 History ketoconazole 2 % shampoo 1 ea TOPICAL DIRECTED 30 Days 03/17/18 12/22/21 History #120 ml acetaminophen 500 mg tablet 500 mg PO Q8H PRN 10/09/20 12/22/21 History (Tylenol Extra Strength) aspirin 81 mg tablet,delayed 81 mg PO QAM 10/09/20 12/22/21 History release atorvastatin 40 mg tablet (Lipitor) 40 mg PO PM 10/09/20 12/22/21 History flurbiprofen 100 mg tablet 100 mg PO QAM 10/09/20 12/22/21 History glimepiride 4 mg tablet 4 mg PO QAM 10/09/20 12/22/21 History magnesium oxide 400 mg PO QAM 10/09/20 12/22/21 History atenolol 25 mg tablet 25 mg PO QAM #30 tab 10/17/20 12/22/21 Rx blood sugar diagnostic (Accu-Chek #100 ea 10/17/20 Rx Guide test strips) blood-glucose meter (Accu-Chek #1 ea 10/17/20 Rx Guide Me Glucose Mtr) insulin admin supplies #1 ea 10/17/20 Rx insulin admin supplies #1 ea NS 10/17/20 Rx lancets (Accu-Chek Fastclix Lancet #100 ea 10/17/20 Rx Drum) furosemide 40 mg tablet 40 mg PO QAM 12/01/21 12/22/21 History insulin glargine 100 unit/mL (3 25 unit SUBCUT QAM 12/01/21 12/22/21 History mL) subcutaneous pen (Basaglar KwikPen U-100 Insulin) losartan 100 mg tablet 100 mg PO QAM 12/01/21 12/22/21 History turmeric 400 mg capsule 400 mg PO QAM 12/01/21 12/22/21 History oxycodone 5 mg tablet 5 mg PO Q6H PRN #30 tab 12/22/21 Rx tramadol 50 mg tablet 50 mg PO Q6H PRN #30 tab 12/22/21 Rx Patient History Medical History Chronic back pain Degenerative disc disease Diabetes mellitus type II, controlled fluctuating per pt, follows with PCP [facility] Dyslipidemia Dyspnea on exertion ongoing since COVID 19 illness 10/2020, exacerbation 09/2021-per [facility] records, pt in heart failure and started on po diuretics with close f/u -improvement-per pt near baseline Gout controlled, stable per pt Heart failure Grade II diastolic dysfunction on 2019 echo; 10/2021 PCP acute visit for increased dyspnea, hypervolemia-started on diuretic, back to baseline per pt still with dyspnea on exertion and peripheral edema HTN (hypertension) controlled, stable per pt, occ elevation in clinical settings per pt Morbid obesity TAD on CPAP compliant, follows with [facility] pulm Osteoarthritis Pneumonia due to COVID-19 virus 10/2020-acute hypoxic respiratory failure, d/c on 2 L supplemental oxygen with ambulation-taken by insurance 11/2020 per [facility] pulm records, pt declined repeat testing Psoriatic arthropathy Surgical History H/O meniscectomy of right knee "1994 Dr. Bernard" H/O wisdom tooth extraction History of colonoscopy History of tonsillectomy Hx of total knee arthroplasty bilateral. left 04/15/2018: SAB at L3-L4, 1 attempt + PNB. No issues per anesthesia postop progress note. Family History Father Cancer Other No family history of adverse response to anesthesia Social History Smoking Status: Never smoker Second Hand Exposure: No; Do You Dip or Chew Tobacco: No; Tobacco Cessation Education Requested by Patient: No Hx Alcohol Use: Yes Alcohol type: hard liquor Hx Substance Use: No Preferred Language: Qatari Communication Ability: Effective Pulmonary Disease Specialist Required: No Beliefs That Will Affect Care: None marital status: Current Living Situation: Spouse current occupational status: employed Other Information That Helps Us Care for You: No Feels Safe at Home: Yes Safety Concerns: Feels Safe At This Time Assistive Devices: Cane, CPAP and Glasses Review of Systems Review of Systems: All systems reviewed & are unremarkable except as noted in Subjective Physical Exam Physical Exam: Physical Exam: Vitals signs as noted above General Appearance:Morbidly Obese, no apparent distress Head: normocephalic, Atraumatic Eyes: normal inspection, EOMI Neck: supple, Trachea midline Respiratory/Chest: Normal breath sounds, CTA Cardiovascular: S1, S2, No murmur Abdomen/GI:Soft, Non tender, Bowel sounds present Back:Surgical site in dressing Extremities/Musculoskeletal:normal inspection, no edema Neurologic/Psych:AAOX3, grossly no focal neurological deficits Skin: normal color, warm Results & Data ([facility]) Vital Signs (Past 12 Hours) Vital Signs Temp Pulse Pulse Resp BP Pulse Ox 12/22/21 14:46 36.8 C 81 16 159/67 H 94 12/22/21 14:15 36.8 C 77 16 154/79 H 96 12/22/21 13:49 36.8 C 76 16 140/65 94 12/22/21 13:30 75 15 148/63 H 97 12/22/21 13:15 36.9 C 75 16 160/68 H 94 12/22/21 13:05 69 20 175/71 H 96 12/22/21 12:55 57 L 21 178/78 H 91 12/22/21 12:45 60 15 180/72 H 94 12/22/21 12:35 66 16 182/75 H 94 12/22/21 12:25 62 25 H 192/86 H 97 12/22/21 12:15 64 13 175/84 H 98 12/22/21 12:09 36.5 C 74 18 170/86 H 93 12/22/21 06:14 37.1 C 64 22 192/84 H 94 Laboratory Results Short CBC 12/22/21 Range/Units 12:32 Hgb 11.1 L (14.0-18.0) g/dL Hct 34.2 L (42-52) % Diagnostic Findings Lumbar X ray:Intraoperative images from lumbar spinal fusion surgery as above.
[2021-12-22] MEDS: INSULIN ASPART PER UNIT SC SCH ×3 (15:27→21:07)
[2021-12-22] MEDS: oxyCODONE HCL IR 5 MG TAB (IMMEDIATE RELEASE) PO PRN ×2 (15:34→19:58)
[2021-12-22] MEDS: ceFAZolin 2000MG 2,000 MG/15 ML SYR IV SCH ×2 (17:37→22:58)
[2021-12-22] MEDS: ATORVASTATIN 40 MG TAB PO SCH (20:34)
[2021-12-22] MEDS: DOCUSATE SODIUM/SENNA 50/8.6MG TAB PO SCH (20:34)
[2021-12-22] MEDS ORDERED: INSULIN GLARGINE SOLOSTAR 100 UNITS/ML 3 ML PEN SC SCH (21:00)
[2021-12-23] MEDS ORDERED: INSULIN ASPART PER UNIT SC SCH
[2021-12-23] MEDS: oxyCODONE HCL IR 5 MG TAB (IMMEDIATE RELEASE) PO PRN ×3 (01:43→17:42)
[2021-12-23] MEDS: POLYETHYLENE (MIRALAX) 17 GM PACK PO SCH ×4 (05:27→23:14)
[2021-12-23 06:43] LABS: Hematocrit (blood only) 30.8 % (42-52); Hemoglobin 9.9 g/dL (14.0-18.0); Immature Granulocytes # (auto) 0.03 K/uL (0.00-0.02); Immature Granulocytes % (auto) 0.2 %; Lymphocytes # (auto) 0.93 K/uL (1.2-3.4); Lymphocytes % (auto) 6.9 %; Mean Corpuscular Hemoglobin 27.3 pg (25-34); Mean Corpuscular Hgb Conc 32.1 g/dL (32-36); Mean Corpuscular Volume 84.8 fL (80-100); Mean Platelet Volume 9.9 fL (7.4-10.4); Monocytes # (auto) 1.02 K/uL (0.11-0.59); Monocytes % (auto) 7.5 %; Neutrophils # (auto) 11.58 K/uL (1.4-6.5); Neutrophils % (auto) 85.4 %; Platelet Count 209 K/uL (130-400); RDW Coefficient of Variation 16.7 % (11.5-14.5); RDW Standard Deviation 51.8 fL (36.4-46.3); Red Blood Count 3.63 M/uL (4.7-6.1); White Blood Count 13.56 K/uL (4.8-10.8)
[2021-12-23 07:00] LABS: BUN Creatinine Ratio 20.7 (10-20); Calcium 7.9 mg/dl (8.5-10.1); Creatinine Clr Calc Pharmacy 127.3 ml/min; Est GFR (African American) 107.2 ml/min; Est GFR (Non-African American) 92.5 ml/min
[2021-12-23] MEDS: OMEGA-3 (PURIFIED FISH OIL) 1 GM CAP PO SCH (08:34)
[2021-12-23] MEDS: CHOLECALCIFEROL 1,000 UNITS 25 MCG TAB PO SCH (08:34)
[2021-12-23] MEDS: CYANOCOBALAMIN (B-12) 500 MCG TABLET PO SCH (08:34)
[2021-12-23] MEDS: FUROSEMIDE 40 MG TAB PO SCH (08:34)
[2021-12-23] MEDS: LOSARTAN POTASSIUM 50 MG TAB PO SCH (08:34)
[2021-12-23] MEDS: MAGNESIUM OXIDE 400 MG TAB PO SCH (08:34)
[2021-12-23] MEDS: ATENOLOL 25 MG TABLET PO SCH (08:34)
[2021-12-23] MEDS: CALCIUM CARBONATE 1250MG TAB PO SCH (08:34)
[2021-12-23] MEDS: allopurinoL 300 MG TAB PO SCH (08:35)
[2021-12-23] MEDS: ZINC SULFATE 220 MG CAPSULE PO SCH (08:35)
[2021-12-23] MEDS: ASPIRIN 81 MG ECTAB PO SCH (08:35)
[2021-12-23] MEDS: INSULIN ASPART PER UNIT SC SCH ×4 (08:42→21:13)
[2021-12-23] MEDS ORDERED: GLIMEPIRIDE 2 MG TAB PO SCH (09:00)
[2021-12-23] MEDS ORDERED: INSULIN GLARGINE SOLOSTAR 100 UNITS/ML 3 ML PEN SC SCH ×2 (09:00→21:00)
--- NOTE | 2021-12-23 09:32 | Orthopedic Progress Note ---
Date of Service December 23, 2021 Assessment & Plan (1) Neurogenic claudication due to lumbar spinal stenosis: Plan: At this time continue physical therapy monitor his DAVID output hopefully discharge home F this week. Admission and Anticipated Discharge Date Admission Date: December 22, 2021 Subjective Back pain controlled leg pain improved Physical Exam Physical Exam: On exam patient is in the chair at the bedside. Specifically testing. Peers comfortable. Results & Data ([facility]) Vital Signs (Past 12 Hours) Vital Signs Temp Pulse Pulse Resp BP Pulse Ox 12/23/21 08:04 36.7 C 66 18 145/60 H 96 12/23/21 05:25 96 12/23/21 04:00 36.8 C 74 18 147/68 H 94 12/22/21 23:00 36.7 C 68 18 132/62 93
--- NOTE | 2021-12-23 11:53 | Pharmacy Report ---
Pharmacy Glycemic Short Note 2 - Date of Service December 23, 2021 - Glycemic Short BSG Results (Last 24 hours): 12/22/21 12/22/21 12/22/21 11:52 12:13 14:56 Glucose POC Glucose 183 H 183 H 239 H 12/22/21 12/22/21 12/23/21 17:17 20:36 00:44 Glucose POC Glucose 251 H 258 H 173 H 12/23/21 12/23/21 06:00 08:12 Glucose 149 H POC Glucose 144 H OUTPATIENT ANTIDIABETIC REGIMEN: * Basaglar 25 units Qam, glimepiride 4 mg Qam, metformin 1 gm bid * A1c 7.8% - from PCP notes 12/09/21 ASSESSMENT: 12/23: * BSGs yesterday were [phone] and fasting today is 144 mg/dL. * Patient received total 81 units of insulin; 40 units of basal + 41 units of bolus. * Basal 20 units added this AM and 10-15 units basal scale for tonight. * Patient received Dexamethasone IV 12 mg yesterday in the OR. This is most likely what led to elevated BSGs above 200 mg/dl at lunch, dinner and HS. * Loosened Novolog parameters with lunch today, since steroid effects should be wearing off. 12/22/21: * 61 year old now POD 0 - spinal surgery. Received steroids in OR therefore I anticipate steroid induced hyperglycemia * Lunch BSG 183 mg/dL, 5 units of regular insulin pulled in OR. Confirmed with RN that patient did not take his AM Basaglar, therefore will enter a dose in for now. Plan to stress dosing due to steroids PLAN FOR INPATIENT GLYCEMIC CONTROL: * Hold outpatient oral diabetes medications * Basal insulin * Lantus 20 units SQ QAM * Lantus HS per scale 10-15 units * Bolus insulin * NovoLog per scale ACHS or Q6hrs while NPO * Goal Range: Low 110 mg/dL - High 140 mg/dL * Correction Factor: 20 mg/dL/unit * Nutritional / Prandial insulin per carb ratio of 1 unit per 7 grams CHO consumed PLAN FOR DISCHARGE: * tbd
--- NOTE | 2021-12-23 15:26 | Hospitalist Progress Note ---
Date of Service December 23, 2021 Assessment & Plan (1) Neurogenic claudication due to lumbar spinal stenosis: Plan: S/P lumbar decompression, fusion surgery L2-S1 POD # 1 Pain is controlled Monitor for post OP anemia Bowel regimen to prevent constipation Activity, Wound Care & DVT Px as per Primary team Incentive Spirometry DM Type II: Last HbA1c 7.8 on 12/09/2021 Will hold oral diabetic meds ISS, basal Insulin, Accu checks, Diabetic diet Pharmacy Glycemic control consult Pharmacy to manage Insulin HTN Recently was switched from carvedilol to atenolol by PCP Continue atenolol, losartan Monitor BP Gout On allopurinol Dyslipidemia On statin next Morbid obesity BMI 43.9 History of diastolic heart failure As per records Monitor volume status Continue home meds TAD CPAP at bedtime DVT Px: As per Primary Team Resume Post Op Care per Surgery Protocol Incentive Spirometry 10x per Hour Resume Relative Home Meds Where Appropriate PT/OT with appropriate fall precautions Transition to PO Pain control DVT Prophylaxis Per Surgery Protocol Monitor Daily Labs ROS-No Headache, No Visual Changes, No Nausea, No Vomiting, No Fever, No Chills, No Neck Pain or Stiffness, No Chest Pain, No Palpitations, No SOB, No PRECIADO, No Cough, No Sputum, No Wheezing, No Abdominal Pain, No Diarrhea, No Hematemesis, No Hemoptysis, No Unexpected Weight Loss, No Flank pain, No Melena, No Hematochezia, No Frequency, No Urgency, No Burning, No Hematuria, No Rashes, No Diaphoresis. Appetite is Normal, +Back pain Physical Exam Gen-AAO x 3, NAD, Afebrile, obese Head-NCAT, EOMI, PERRLA, Anicteric Sclera, No Posterior Pharyngeal Erythema Neck-Supple, No JVD, No Thyromegaly, No Masses, No LAD, No Bruits Lungs-Clear to Auscultation Bilaterally, No Rales, No Rhonchi, No Wheezing, No Crepitus Chest-No S4, +S1, +S2, No S3, No Murmurs, No Rubs, No Gallops, No Ectopy Abdomen-Soft, Bowel Sounds Present, Non Tender, Non Distended, No Hepatomegaly, No Splenomegaly, No Palpable Masses, No Rebound, No Rigidity, No Guarding Musculoskeletal-Full Range of Motion Bilaterally, No CVAT Extremities-No Cyanosis, No Clubbing, No Edema Nuero-Cranial Nerves II-XII grossly intact, Motor WNL, DTRs WNL, Strength WNL, Non Focal Psych-Normal Mood Admission and Anticipated Discharge Date Admission Date: December 22, 2021 Subjective Back pain controlled leg pain improved, Sitting up and eating breakfast Results & Data Results & Data ([facility]) Vital Signs (Past 12 Hours) Vital Signs Temp Pulse Resp BP Pulse Ox 12/23/21 15:16 37.3 C 99 H 18 125/60 98 12/23/21 08:04 36.7 C 66 18 145/60 H 96 12/23/21 05:25 96 12/23/21 04:00 36.8 C 74 18 147/68 H 94 Laboratory Results Reviewed
[2021-12-23] MEDS: ATORVASTATIN 40 MG TAB PO SCH (21:09)
[2021-12-23] MEDS: DOCUSATE SODIUM/SENNA 50/8.6MG TAB PO SCH (21:09)
[2021-12-24] MEDS: POLYETHYLENE (MIRALAX) 17 GM PACK PO SCH ×3 (05:06→21:29)
[2021-12-24] MEDS: oxyCODONE HCL IR 5 MG TAB (IMMEDIATE RELEASE) PO PRN ×3 (05:16→17:56)
[2021-12-24] MEDS: FUROSEMIDE 40 MG TAB PO SCH (08:37)
[2021-12-24] MEDS: ZINC SULFATE 220 MG CAPSULE PO SCH (08:37)
[2021-12-24] MEDS: CYANOCOBALAMIN (B-12) 500 MCG TABLET PO SCH (08:37)
[2021-12-24] MEDS: MAGNESIUM OXIDE 400 MG TAB PO SCH (08:37)
[2021-12-24] MEDS: LOSARTAN POTASSIUM 50 MG TAB PO SCH (08:37)
[2021-12-24] MEDS: ASPIRIN 81 MG ECTAB PO SCH (08:38)
[2021-12-24] MEDS: allopurinoL 300 MG TAB PO SCH (08:38)
[2021-12-24] MEDS: CALCIUM CARBONATE 1250MG TAB PO SCH (08:38)
[2021-12-24] MEDS: OMEGA-3 (PURIFIED FISH OIL) 1 GM CAP PO SCH (08:38)
[2021-12-24] MEDS: ATENOLOL 25 MG TABLET PO SCH (08:38)
[2021-12-24] MEDS: INSULIN GLARGINE SOLOSTAR 100 UNITS/ML 3 ML PEN SC SCH (08:38)
[2021-12-24] MEDS: CHOLECALCIFEROL 1,000 UNITS 25 MCG TAB PO SCH (08:38)
[2021-12-24] MEDS: INSULIN ASPART PER UNIT SC SCH ×4 (08:43→21:30)
--- NOTE | 2021-12-24 11:33 | Hospitalist Progress Note ---
Date of Service December 24, 2021 Assessment & Plan (1) Neurogenic claudication due to lumbar spinal stenosis: Plan: S/P lumbar decompression, fusion surgery L2-S1 POD # 2 activity and wound care orders as per ortho pain control with bowel regimen PT/OT EBL 900cc, drain output 1035cc Acute Blood Loss Anemia pre op hgb 12.9 -> 9.9 on 12/23 no indication for transfusion follow H&H DM Type II Last HbA1c 7.8 on 12/09/2021 Will hold oral diabetic meds Pharmacy Glycemic control consult Novolog and Lantus per protocol History of diastolic heart failure As per records Appears euvolemic, continue home lasix HTN Recently was switched from carvedilol to atenolol by PCP Continue atenolol, losartan BP controlled Gout On allopurinol Dyslipidemia On statin Morbid obesity BMI 43.9 TAD CPAP at bedtime DVT Px: TEDs/SCDs as per spine orhto Thank you for this consultation. We will follow the patient with you during their hospital stay. You can reach a member of the [facility] Hospitalist Team 31/05 via the [place] Hospitalist role in [employer]. Admission and Anticipated Discharge Date Admission Date: December 22, 2021 Supervising Physician Co-Signing Physician Notes Attending Addendum: care coordinated with TEVIN Light please refer to her notes for full details, I agree with her notes patient seen and examined, records reviewed by myself as well on exam, patient seen resting in bedside chair, comfortable states he feels fine overall back pain well controlled ambulated with PT without symptoms no other symptoms VS noted and reviewed oriented x3 , not in distress, speaks in sentences with no effort nor accessory muscle use normal rate, regular rhythm, no murmurs clear breath sounds bilaterally non distended, soft, nontender no bipedal edema, erythema, warmth no neuro deficits labs noted and reviewed ASSESSMENT AND PLAN s/p Lumbar Surgery - Hg 9 repeat Hg tomorrow DM 2 - Pharmacy glycemic control on board HTN - BP stable overall continue Losartan other diagnoses and plan of care as per TEVIN Light's notes Oren Edouard MD Subjective Patient seen and exmained. Follow up for medical management post op back surgery. Patient reports he is doing well. Pain is well controlled. Denies chest pain and shortness of breath. No abdominal pain or nausea. Stevenson removed this morning, has not voided yet. Passing flatus, no BM. Review of Systems Review of Systems: ROS per HPI, all other systems reviewed and negative Physical Exam Constitutional: WD/WN, vitals as above no acute distress sitting up in the chair Respiratory: normal respiratory effort, lungs clear to auscultation Cardiovascular: Rate/Rhythm: regular rate and regular rhythm Vessels: normal peripheral pulses Extremities: no edema Gastrointestinal (Abdomen): Percussion/Palpation: abdomen soft; abdomen nontender Musculoskeletal: s/p back surgery, strength strong and equal BLE Skin: no rashes, warm and dry Neurologic: no focal motor deficits Psychiatric: A+Ox3, euthymic affect Results & Data Results & Data ([facility]) Vital Signs (Past 12 Hours) Vital Signs Temp Pulse Resp BP Pulse Ox 12/24/21 07:50 37.0 C 67 18 123/51 L 98
--- NOTE | 2021-12-24 11:55 | Pharmacy Report ---
Pharmacy Glycemic Short Note 2 - Date of Service December 24, 2021 - Glycemic Short BSG Results (Last 24 hours): 12/23/21 12/23/21 12/23/21 11:58 16:53 20:44 POC Glucose 180 H 171 H 183 H 12/24/21 07:59 POC Glucose 185 H OUTPATIENT ANTIDIABETIC REGIMEN: * Basaglar 25 units Qam, glimepiride 4 mg Qam, metformin 1 gm bid * A1c 7.8% - from PCP notes 12/09/21 ASSESSMENT: 12/24: * BSGs yesterday were [phone] and fasting today is 185 mg/dl. * Patient received total 65 units of insulin yesterday; 35 units basal + 30 units bolus. This was less than the day before. * Since fasting BSG is high today, basal dose in AM increased to 25 units. * Post prandial BSGs were above goal yesterday, tightened Novolog CF/CR this AM. 12/23: * BSGs yesterday were [phone] and fasting today is 144 mg/dL. * Patient received total 81 units of insulin; 40 units of basal + 41 units of bolus. * Basal 20 units added this AM and 10-15 units basal scale for tonight. * Patient received Dexamethasone IV 12 mg yesterday in the OR. This is most likely what led to elevated BSGs above 200 mg/dl at lunch, dinner and HS. * Loosened Novolog parameters with lunch today, since steroid effects should be wearing off. 12/22/21: * 61 year old now POD 0 - spinal surgery. Received steroids in OR therefore I anticipate steroid induced hyperglycemia * Lunch BSG 183 mg/dL, 5 units of regular insulin pulled in OR. Confirmed with RN that patient did not take his AM Basaglar, therefore will enter a dose in for now. Plan to stress dosing due to steroids PLAN FOR INPATIENT GLYCEMIC CONTROL: * Hold outpatient oral diabetes medications * Basal insulin * Lantus 25 units SQ QAM * Lantus 15 units SQ HS * Bolus insulin * NovoLog per scale ACHS or Q6hrs while NPO * Goal Range: Low 110 mg/dL - High 140 mg/dL * Correction Factor: 15 mg/dL/unit * Nutritional / Prandial insulin per carb ratio of 1 unit per 5 grams CHO consumed PLAN FOR DISCHARGE: * HbA1c = 7.8% on 12/09/21 * Goal A1c is less than 7% for this patient given age and co-morbidities. Current A1c is improved from over a year ago. Patient's A1c is near goal. * Recommend continue outpatient Metformin 1000 mg PO BID with meals, Glimepiride 4 mg PO QAM with breakfast, and Basaglar 25 units QAM with dose adjustments per outpatient provider.
[2021-12-24] MEDS ORDERED: INSULIN GLARGINE SOLOSTAR 100 UNITS/ML 3 ML PEN SC SCH (21:00)
[2021-12-24] MEDS: DOCUSATE SODIUM/SENNA 50/8.6MG TAB PO SCH (21:29)
[2021-12-24] MEDS: ATORVASTATIN 40 MG TAB PO SCH (21:29)
[2021-12-25] MEDS: POLYETHYLENE (MIRALAX) 17 GM PACK PO SCH ×3 (00:57→11:32)
[2021-12-25] MEDS: oxyCODONE HCL IR 5 MG TAB (IMMEDIATE RELEASE) PO PRN ×2 (04:22→10:03)
[2021-12-25] MEDS ORDERED: metFORMIN HCL 500 MG TAB PO SCH (08:00)
[2021-12-25] MEDS: ZINC SULFATE 220 MG CAPSULE PO SCH (08:25)
[2021-12-25] MEDS: ATENOLOL 25 MG TABLET PO SCH (08:25)
[2021-12-25] MEDS: LOSARTAN POTASSIUM 50 MG TAB PO SCH (08:25)
[2021-12-25] MEDS: CALCIUM CARBONATE 1250MG TAB PO SCH (08:25)
[2021-12-25] MEDS: OMEGA-3 (PURIFIED FISH OIL) 1 GM CAP PO SCH (08:25)
[2021-12-25] MEDS: MAGNESIUM OXIDE 400 MG TAB PO SCH (08:25)
[2021-12-25] MEDS: allopurinoL 300 MG TAB PO SCH (08:25)
[2021-12-25] MEDS: CHOLECALCIFEROL 1,000 UNITS 25 MCG TAB PO SCH (08:25)
[2021-12-25] MEDS: FUROSEMIDE 40 MG TAB PO SCH (08:25)
[2021-12-25] MEDS: ASPIRIN 81 MG ECTAB PO SCH (08:25)
[2021-12-25] MEDS: CYANOCOBALAMIN (B-12) 500 MCG TABLET PO SCH (08:30)
[2021-12-25] MEDS: INSULIN ASPART PER UNIT SC SCH ×2 (08:31→12:51)
[2021-12-25] MEDS: INSULIN GLARGINE SOLOSTAR 100 UNITS/ML 3 ML PEN SC SCH (08:31)
[2021-12-25 10:49] LABS: Basophils # (auto) 0.04 K/uL (0-0.2); Basophils % (auto) 0.4 %; Eosinophils # (auto) 0.42 K/uL (0-0.5); Eosinophils % (auto) 3.8 %; Hematocrit (blood only) 29.5 % (42-52); Hemoglobin 9.5 g/dL (14.0-18.0); Immature Granulocytes # (auto) 0.06 K/uL (0.00-0.02); Immature Granulocytes % (auto) 0.5 %; Lymphocytes # (auto) 1.91 K/uL (1.2-3.4); Lymphocytes % (auto) 17.2 %; Mean Corpuscular Hemoglobin 27.1 pg (25-34); Mean Corpuscular Hgb Conc 32.2 g/dL (32-36); Mean Corpuscular Volume 84.3 fL (80-100); Monocytes # (auto) 0.86 K/uL (0.11-0.59); Monocytes % (auto) 7.7 %; Neutrophils # (auto) 7.82 K/uL (1.4-6.5); Neutrophils % (auto) 70.4 %; Platelet Count 194 K/uL (130-400); RDW Coefficient of Variation 16.9 % (11.5-14.5); RDW Standard Deviation 52.2 fL (36.4-46.3); White Blood Count 11.11 K/uL (4.8-10.8)
[2021-12-25 11:03] LABS: BUN Creatinine Ratio 28.8 (10-20); Calcium 8.3 mg/dl (8.5-10.1); Creatinine Clr Calc Pharmacy 138.5 ml/min; Est GFR (Non-African American) 95.7 ml/min
--- NOTE | 2021-12-25 11:10 | Discharge Summary ---
Date of Service December 25, 2021 Admission HPI Per Admitting Provider This is a 61-year-old male presents with chronic persistent back and leg pain after failing course of nonoperative care is here for surgical invention. Principal Diagnosis Lumbar spinal stenosis with neurogenic claudication Discharge Data Allergies Allergy/AdvReac Type Severity Reaction Status Date / Time No Known Allergies Allergy Verified 12/22/21 06:06 Consultations 12/22/21 13:48 Consult Hospitalist Routine Procedures Performed Operation Date: 12/22/21 07:45 Actual Procedures p L2-S1 Decompression and Fusion(Not Applicable) - Dilip Griffin DO Ordered Studies 12/22/21 07:45 [place] lumbar spine 2-3V Routine Hospital Course (1) Neurogenic claudication due to lumbar spinal stenosis: Patient was underwent lumbar decompression fusion T[place]auren well was taken to the orthopedic floor postoperative. Postop day one he was up and ambulating progressed postop day #2 postop day #3 DAVID drain was decreasing appropriately. Excellent strength testing. Pain well controlled. Subsequent discharge home. Discharge orders instructions from the chart for further review. Total Time Total Time Spent Total Time Spent (In Minutes): 20 minutes Discharge Plan Discharge Items Patient Disposition: Home - Self-Care Reason For Visit: Spinal Stenosis, Lumbar Region with Neurogenic Cla Discharge Diagnosis: Lumbar spinal stenosis with neurogenic claudication Activity: As commented below Non-emergency contact: Primary Care Provider Call non-emergency contact if: you have any medication questions Follow-up/Referrals: Soren Nicholson MD [Primary Care Provider] - Diet: Regular Addtl Attending Provider Instructions: ACTIVITY RECOMMENDATIONS: SELF CARE INSTRUCTIONS AFTER THORACIC/LUMBAR FUSIONS 1. You may walk to your tolerance. It is good exercise for your legs and back. Expect some back and intermittent leg aches and pains. 2. You may perform "counter-top" level activities (make a sandwich, félix with a project, etc.). 3. No bending or lifting of more than 10 pounds or back twisting of any nature (roll like a log when turning in bed). 4. You may ride in a car for 20-30 minutes at a time. No driving until after your first visit with your doctor. 5. Frequent changes of position and restricting sitting to 30 minutes at a time will help limit the amount of back spasms and stiffness you may experience. 6. You may discontinue the use of ambulatory aids (cane, crutches, etc.) once your strength and confidence allow. 7. You may wirer maintenance the shower and let water strike your incision when you arrive home at least once daily. Do not take a tub bath, sit in a hot tub or go into a swimming pool until after your first recheck in the office. SPECIAL CARE INSTRUCTIONS: VERY IMPORTANT TO READ AND REVIEW A. Your surgical incision has been closed with a cosmetic suture under the skin that will dissolve in about 6 weeks. In 14 days, you can use a pair of clean scissors and cut the suture that is left outside of the skin at the ends of your incision. 1. The small skin tapes can be removed 7 days after surgery if they have not fallen off by that point. 2. You may keep the wound open to air as much as possible to promote healing after post-op day number 5 unless told otherwise by your doctor. 3. If you think the wound looks like it is becoming infected (redness or worsening drainage) and/or you are experiencing fever, chill or worsening back pain and muscle spasms, contact the office so that we may evaluate you as soon as possible. B. Complications are uncommon, but please contact us if you have any signs or symptoms of: 1. wound infection (fever higher than 102.5 degrees F, redness, separation of wound, drainage, or increasing pain from the incision) 2. blood clots in legs (pain, swelling, redness and warmth in legs) 3. urinary tract infection (fever higher than 102.5 degrees F, burning upon urination or increased frequency of urination) 4. nerve problems (inability to walk on your toes or heels, numbness, loss o f bowel or bladder control) 5. any other symptoms that concern you C. Please call the office at if you have any concerns or question s about your operation or recovery. D. No smoking! Smoking drastically decreases the chance of a solid fusion. E. Do not take any anti-inflammatory medications (Indocin, Advil, Motrin, Aspirin, Naprosyn, etc.) as these may inhibit the chance of a solid fusion. Tylenol is okay to take for pain. MANAGING PAIN AFTER SPINAL SURGERY 1. Narcotic medication is intended for short-term use and will be provided for surgical pain. Surgical pain usually lasts for a period of 4-6 weeks. Narcotic medication includes Percocet, Vicodin, Darvocet, Tylenol #3 or Lortab. 2. Longer-term pain is more appropriately treated with non-narcotic medication such as Tylenol ES. 3. Muscle spasm is not appropriately treated with narcotics. Muscle relaxers such as Soma, Flexeril or Skelaxin can be used along with Tylenol ES. 4. Remember that we all live with some "aches and pains". This is not unusual or uncommon after an injury or as we get older. a. Back pain is expected and may include muscle spasms for 4 to 6 weeks after surgery. The pain should gradually improve. If the pain worsens for no apparent reason, please contact the office. b. Intermittent leg pain may also be experienced and should not be concerned about unless it worsens for no apparent reason. If so, please contact the office. 5. We will provide appropriate medication within the normal guidelines of their prescribed use. We will also be very cautious and aware of potential abuse and extended duration of patients' medication needs. a. Pain medications are for your comfort and to assist with sleep and rest so that the tissue can heal. They are not provided in order to return to normal activity and should not be used through the day. To do so or worsening pain at night can result from ongoing tissue damage and development of tolerance to the prescribed medicine. 6. Please allow 2-3 days to process refills. Prescriptions will not be mailed but must be picked up at the office. FOLLOW UP VISIT: Keep your scheduled follow-up appointment. Any questions, please call the office at . Pending Studies at Discharge: No Stand-Alone Forms: [facility], Smoking Cessation Medications and DC Order Prescriptions: New tramadol 50 mg tablet 50 mg PO Q6H PRN (Reason: pain, moderate) Qty: 30 RF: 0 oxycodone 5 mg tablet 5 mg PO Q6H PRN (Reason: pain, severe) Qty: 30 RF: 0 Continued omega-3 fatty acids [Fish Oil Concentrate] 1,000 mg Capsule 1,000 mg PO QAM Qty: 0 RF: 0 cyanocobalamin (vitamin B-12) [Vitamin B-12] 1,000 mcg Tablet 1,000 mcg PO QAM Qty: 0 RF: 0 glucosamine sulfate [Glucosamine] 500 mg Tablet 500 mg PO QAM Qty: 0 RF: 0 metformin 1,000 mg Tablet 1,000 mg PO BID Qty: 0 RF: 0 allopurinol 300 mg Tablet 300 mg PO QAM Qty: 0 RF: 0 cinnamon bark [Cinnamon] 500 mg Capsule 500 mg PO QAM Qty: 0 RF: 0 grape seed extract 50 mg Tablet 50 mg PO QAM Qty: 0 RF: 0 zinc 50 mg Tablet 50 mg PO QAM Qty: 0 RF: 0 ketoconazole 2 % Shampoo 1 ea TOPICAL DIRECTED 30 Days Qty: 120 RF: 1 calcium carbonate [Calcium 600] 600 mg calcium (1,500 mg) Tablet 600 mg PO QAM Qty: 0 RF: 0 garlic Tablet 1,000 mg PO QAM Qty: 0 RF: 0 cholecalciferol (vitamin D3) [Vitamin D3] 25 mcg (1,000 unit) Tablet 25 mcg PO QAM 90 Days Qty: 90 RF: 3 atorvastatin [Lipitor] 40 mg tablet 40 mg PO PM RF: 0 aspirin 81 mg Tablet,Delayed Release (Dr/Ec) 81 mg PO QAM RF: 0 glimepiride 4 mg tablet 4 mg PO QAM RF: 0 flurbiprofen 100 mg tablet 100 mg PO QAM RF: 0 magnesium oxide 400 mg magnesium Tablet 400 mg PO QAM RF: 0 acetaminophen [Tylenol Extra Strength] 500 mg Tablet 500 mg PO Q8H PRN (Reason: Pain) RF: 0 atenolol 25 mg Tablet 25 mg PO QAM Qty: 30 RF: 0 (DME) insulin admin supplies Insulin Pen See Rx Instructions .ROUTE .MEDSUPPLY Qty: 1 RF: 0 (DME) insulin admin supplies Insulin Pen See Rx Instructions .ROUTE .MEDSUPPLY Qty: 1 RF: 0 (DME) blood-glucose meter [Accu-Chek Guide Me Glucose Mtr] Misc See Rx Instructions .ROUTE .MEDSUPPLY Qty: 1 RF: 0 (DME) Accu-Chek Guide test strips Strip See Rx Instructions .ROUTE .MEDSUPPLY Qty: 100 RF: 0 (DME) lancets [Accu-Chek Fastclix Lancet Drum] Misc See Rx Instructions .ROUTE .MEDSUPPLY Qty: 100 RF: 0 losartan 100 mg tablet 100 mg PO QAM RF: 0 Basaglar KwikPen U-100 Insulin 100 unit/mL (3 mL) insulin pen 25 unit subcut QAM RF: 0 turmeric 400 mg Capsule 400 mg PO QAM RF: 0 furosemide 40 mg Tablet 40 mg PO QAM RF: 0 Discharge Orders: Discharge Order (Routine); Ordered 12/25/21 Ordered By: Dilip Griffin Admission Data Admit Date/Time: 12/22/21 11:57 Attending Provider: Dilip Griffin Admit Provider: Dilip Griffin Primary Care Provider: Soren Nicholson Other Providers: Dilip Griffin ; Oren Edouard
--- NOTE | 2021-12-25 12:34 | Hospitalist Progress Note ---
Date of Service December 25, 2021 Assessment & Plan (1) Neurogenic claudication due to lumbar spinal stenosis: Plan: S/P lumbar decompression, fusion surgery L2-S1 POD # 3 activity and wound care orders as per ortho pain control with bowel regimen PT/OT EBL 900ml Acute Blood Loss Anemia pre op hgb 12.9 -> 9.9 on 12/23 -> 9.5 today no indication for transfusion follow H&H DM Type II Last HbA1c 7.8 on 12/09/2021 Will hold oral diabetic meds Pharmacy Glycemic control consult Novolog and Lantus per protocol History of diastolic heart failure As per records Appears euvolemic, continue home lasix HTN Recently was switched from carvedilol to atenolol by PCP Continue atenolol, losartan BP controlled Gout On allopurinol Dyslipidemia On statin Morbid obesity BMI 43.9 TAD CPAP at bedtime DVT Px: TEDs/SCDs as per spine orhto Thank you for this consultation. We will follow the patient with you during their hospital stay. You can reach a member of the [facility] Hospitalist Team 31/05 via the [facility] in [place] Text. Admission and Anticipated Discharge Date Admission Date: December 22, 2021 Subjective Patient seen and examined in [facility]. Follow up for medical management post op back surgery. Pain is controlled. No F/C, lightheadedness, CP, SOB, N/V, abdominal pain, dysuria. Passing flatus, no post op bowel movement yet. Patient reports he is doing well. Pain is well controlled. Stevenson removed this morning, has not voided yet. Passing flatus, no BM. Review of Systems Review of Systems: ROS per HPI, all other systems reviewed and negative Physical Exam Physical Exam: Gen: WD/WN, NAD, sitting in bedside chair, obese, A&Ox3 HEENT: Normocephalic, atraumatic, conjunctivae moist, sclerae anicteric, mucous membranes moist Lung: Clear to Auscultation bilaterally, no wheezes/rales/rhonchi Heart: Regular rate, regular rhythm, no murmurs, rubs, or gallops Abdomen: Soft, NT, ND +BS x 4 Extremities: Spinal dressing c/d/i. DAVID drain visualized. No edema Skin: Warm, no rash Results & Data Results & Data ([facility]) Vital Signs (Past 12 Hours) Vital Signs Temp Pulse Pulse Pulse Resp BP Pulse Ox 12/25/21 11:39 36.9 C 76 79 73 18 152/72 H 99 12/25/21 07:28 36.9 C 76 18 152/72 H 99 Laboratory Results Short CBC 12/25/21 Range/Units 10:17 WBC 11.11 H (4.8-10.8) K/uL Hgb 9.5 L (14.0-18.0) g/dL Hct 29.5 L (42-52) % Plt Count 194 (130-400) K/uL BMP 12/25/21 10:17 Sodium 135 L Potassium 4.0 Chloride 101 Carbon Dioxide 27 BUN 23 Creatinine 0.80 Glucose 221 H Calcium 8.3 L Diagnostic Findings Lumbar Spine X-Ray 12/22/21 07:45 INTRAOPERATIVE RADIOGRAPHS CLINICAL HISTORY: L2-S1 spinal fusion. Fluoroscopy time: 44 seconds. FINDINGS: 3 spot fluoroscopic views of the lumbar spine are presented. There is evidence of extensive lumbosacral spinal fusion from L2-S1. There as been discectomy at L3-L4 and L5-S1. Interpedicular screws are present at all levels. The orthopedic hardware appears intact. IMPRESSION: Intraoperative images from lumbar spinal fusion surgery as above. Electronically signed by: Nj Perez M.D. 12/22/2021 12:45 PM
== END 2021-12-25 13:47 | disposition home or self-care (01) | DRG 454 ==
LOC: ASU 05:48 → SUATTDRO 11:57 → 3W 11:57